=== PATIENT | female | born 1975 | race African-American/Black ===

== ENCOUNTER 2016-07-22 18:42 | Emergency (ER) | payer MEDICARE, MEDICAID ==
[~2016-07-22] VITALS: Ht 162.6 cm; Wt 64.9 kg
[~2016-07-22 18:42] MED LIST: ACETAMINOPHEN-1 EAC2 PO; COUMADIN10 MG ORAL; COUMADIN7.5 MG ORAL; DILAUDID4 MG ORAL; DILAUDID4 MG PO; FOLIC ACID1 MG ORAL; FOLIC ACID1 MG PO; NORCO 10-325 T1 EACH ORAL; NORCO 5-325 TA1 EACH ORAL; NORCO 5-325 TA1 EACH PO; NORCO1 E1 ORAL; NORVASC5 MG ORAL; OXYCODONE HCL80 MG PO; OXYCONTIN80 MG ORAL; OXYCONTIN80 MG PO; TOPROL XL25 MG ORAL; VICODIN 5-3001 EACH ORAL
[2016-07-22 18:55] VITALS: BP 158/67
[2016-07-22 20:00] VITALS: BP 158/67
--- NOTE | 2016-07-24 06:54 | Emergency Room Report ---
History of Present Illness General Chief Complaint: Pain Source: EMS Present Illness HPI 41-year-old female presents ED complaining of generalized pain. Patient states she has history of sickle cell disease. States pain is a 10 out of 10, sharp, nonradiating. No aggravating or relieving factors. States she does not have any medications at home. Patient is well known to [facility]; has been here multiple times for pain-related complaints due to sickle cell. Previous visits I had discussion with her subscription agent Dr. Christine told me that patient should not receive medication the emergency room as she comes to the clinic multiple times week and requests strong doses of IV Dilaudid. She states she was at her doctors office today. Denies fevers or chills. Denies shortness of breath. No aggravating relieving factors. Denies any other associated symptoms Allergies: Coded Allergies: MORPHINE (Verified Allergy, Mild, HALLUCINATIONS AND HIVES, 04/09/10) Patient History Past Medical History: HTN, asthma Past Surgical History: none Pertinent Family History: none Social History: Denies: alcohol use, drug use, smoking Last Menstrual Period: jul 12, 2016 Now: No Immunizations: UTD Reviewed Nursing Documentation: PMH: Agreed, PSxH: Agreed Nursing Documentation-PMH Past Medical History: No History, Except For Hx Hypertension: Yes Hx Asthma: Yes Hx Cancer: No Hx Gastrointestinal Problems: No Review of Systems All Other Systems: negative except mentioned in HPI Physical Exam Vital Signs Date Time Temp Pulse Resp B/P Pulse Ox O2 Delivery O2 Flow Rate FiO2 07/22/16 18:45 98.8 81 15 158/67 98 Room Air Sp02 EP Interpretation: reviewed, normal General Appearance: alert, GCS 15, non-toxic, mild distress Head: normocephalic, atraumatic Eyes: bilateral eye PERRL, bilateral eye normal inspection ENT: hearing grossly normal, normal pharynx, no angioedema, normal voice Neck: full range of motion, supple/symm/no masses Respiratory: chest non-tender, lungs clear, normal breath sounds, speaking full sentences Cardiovascular #1: regular rate, rhythm, no edema Cardiovascular #2: 2+ carotid (R), 2+ carotid (L), 2+ radial (R), 2+ radial (L) , 2+ dorsalis pedis (R), 2+ dorsalis pedis (L) Gastrointestinal: normal bowel sounds, non tender, soft, non-distended, no guarding, no rebound Rectal: deferred Genitourinary: normal inspection, no CVA tenderness Musculoskeletal: back normal, gait/station normal, normal range of motion, non- tender Neurologic: alert, oriented x3, responsive, motor strength/tone normal, sensory intact, speech normal Psychiatric: judgement/insight normal, memory normal, mood/affect normal, no suicidal/homicidal ideation Reflexes: 3+ bicep (R), 3+ bicep (L), 3+ tricep (R), 3+ tricep (L), 3+ knee (R) , 3+ knee (L) Skin: normal color, no rash, warm/dry, well hydrated Lymphatic: no adenopathy Medical Decision Making Diagnostic Impression: Primary Impression: Drug-seeking behavior ER Course Hospital Course [id number] F presents ED complaining of generalized body pain, h/o sickle cell Differential diagnoses include: sickle cell crisis, sepsis, opioid dependence Clinical course Physical exam is unremarkable. Patient is stable vitals. Patient does have multiple visits to the emergency room for pain-related complaints. On previous discussions with subscription agent Dr. Christine should not receive medications in the emergency room and she only followup with his office. I explained to patient that we could not provide her with any additional medication at this time. Patient gets very upset and states that I don't know her and that never seen her before. I explained to patient that I evaluated her myself multiple times in the past which is documented in the EMR. Diagnosis - drug seeking behavior Stable and discharged to home. Followup with PMD. Return to ED if symptoms recur or worsen Last Vital Signs Date Time Temp Pulse Resp B/P Pulse Ox O2 Delivery O2 Flow Rate FiO2 07/22/16 20:00 98.7 89 15 158/67 98 Room Air Status: improved Disposition: HOME, SELF-CARE Condition: Stable Referrals: LULY CALIXTO (PCP) Patient Instructions: Chronic Pain PEDRO OWENS M.D. Jul 24, 2016 06:54
== END 2016-07-22 20:00 | disposition home or self-care (01) ==
LOC: EMR 19:30
DX: Z76.5 Malingerer [conscious simulation] (principal); D57.1 Sickle-cell disease without crisis; I10 Essential (primary) hypertension; J45.909 Unspecified asthma, uncomplicated; Z88.6 Allergy status to analgesic agent
CPT/HCPCS: 99282

== ENCOUNTER 2016-09-15 21:44 | Emergency (ER) | payer MEDICARE, MEDICAID ==
[~2016-09-15] VITALS: Ht 162.6 cm; Wt 64.0 kg
[2016-09-15 22:08] VITALS: BP 144/87
--- NOTE | 2016-09-15 22:18 | Emergency Room Report ---
History of Present Illness General Chief Complaint: Pain Source: Patient Present Illness HPI Is a 41-year-old Afro[place]er female with a history of sickle cell. She has multiple visit here and also to [place]. She presents with chief complaint of generalized pain. Pain is 10 out of 10. She said that her pain medication not working. Denies any fever or chills. Denies any nausea vomiting. Pain is similar to her previous episode. Allergies: Coded Allergies: MORPHINE (Verified Allergy, Mild, HALLUCINATIONS AND HIVES, 04/09/10) Patient History Past Medical History: see triage record, old chart reviewed, HTN Past Surgical History: other Pertinent Family History: none Social History: Denies: smoking Last Menstrual Period: unk Now: No Immunizations: other Reviewed Nursing Documentation: PMH: Agreed, PSxH: Agreed Nursing Documentation-PMH Hx Hypertension: Yes Hx Asthma: Yes Hx Cancer: No Hx Gastrointestinal Problems: No Review of Systems Eye: Denies: blurred vision, eye pain ENT: Denies: ear pain, nose congestion, throat swelling Respiratory: Denies: cough, shortness of breath Cardiovascular: Denies: chest pain, palpitations Gastrointestinal: Denies: abdominal pain, diarrhea, nausea, vomiting Musculoskeletal: Denies: back pain, joint pain Skin: Denies: rash Neurological: Denies: headache, numbness Endocrine: Denies: increased thirst, increased urine Hematologic/Lymphatic: Denies: easy bruising All Other Systems: negative except mentioned in HPI Physical Exam Vital Signs Date Time Temp Pulse Resp B/P Pulse Ox O2 Delivery O2 Flow Rate FiO2 09/15/16 21:51 98.1 98 16 149/85 97 Room Air vitals with mild hypertension Sp02 EP Interpretation: reviewed, normal General Appearance: well appearing, no apparent distress, alert Head: normocephalic, atraumatic Eyes: bilateral eye EOMI, bilateral eye PERRL ENT: hearing grossly normal, normal pharynx Neck: full range of motion, supple, no meningismus Respiratory: chest non-tender, lungs clear, normal breath sounds Cardiovascular #1: regular rate, rhythm, no murmur Gastrointestinal: normal bowel sounds, non tender, no mass, no organomegaly, no bruit, non-distended Musculoskeletal: back normal, gait/station normal, normal range of motion Psychiatric: mood/affect normal Skin: warm/dry Medical Decision Making Diagnostic Impression: Primary Impression: Sickle cell crisis Additional Impressions: Drug-seeking behavior Hypertension Qualified Codes: I10 - Essential (primary) hypertension opiate dependancy ER Course Patient presents with exacerbation of chronic pain. She did multiple narcotic prescription from Dr. Christine. She was just at his office or it today. Patient tell me that she hasn't been anywhere else. She was at [facility] just before coming here. I spoke with the ER DrCheli there. Her labs are unremarkable. She sat out AMA because she did not get any further pain medication. She walked in here without any difficulty. She has been to multiple different ERs for pain medication. We'll discharge home. There is no evidence of aplastic crisis or evidence of infection. Last Vital Signs Date Time Temp Pulse Resp B/P Pulse Ox O2 Delivery O2 Flow Rate FiO2 09/15/16 22:08 98.2 96 15 144/87 97 Room Air Status: improved Disposition: HOME, SELF-CARE Condition: Stable Patient Instructions: Chronic Pain Additional Instructions: Stop going to different ERs for pain medication. Take your pain medication. Followup with your DrCheli in 2-3 days. Return if symptom worsen. JOEL ACUNA M.D. Sep 15, 2016 22:18
[2016-09-15] MEDS ORDERED: Acetaminophen 500mg (ES) tab ORAL ONE ×2 (22:19→22:30)
== END 2016-09-15 22:29 | disposition home or self-care (01) ==
LOC: EMR 22:20
DX: D57.00 Hb-SS disease with crisis, unspecified (principal); Z76.5 Malingerer [conscious simulation]; I10 Essential (primary) hypertension; F11.20 Opioid dependence, uncomplicated; J45.909 Unspecified asthma, uncomplicated; Z88.6 Allergy status to analgesic agent
CPT/HCPCS: 99282

== ENCOUNTER 2016-11-16 17:37 | Emergency (ER) | payer MEDICAID, MEDICARE ==
[~2016-11-16] VITALS: Ht 162.6 cm; Wt 62.6 kg
[2016-11-16 18:02] VITALS: BP 141/89
[2016-11-16] MEDS ORDERED: HYDROmorphone 2 MG, DiphenhydrAMINE 25 MG in NS 55 ML IVPB ONE (18:45)
[2016-11-16] MEDS ORDERED: NS 55 ML IV ONE (18:46)
[2016-11-16] MEDS ORDERED: DiphenhydrAMINE 50mg/ml Inj ONE (18:46)
[2016-11-16 18:59] LABS: MEAN CORPUSCULAR HEMOGLOBIN 32.9 PG (27.0-31.0); MEAN CORPUSCULAR HGB CONC 33.3 G/DL (32.0-36.0); MEAN CORPUSCULAR VOLUME 99 FL (80-99); MEAN PLATELET VOLUME 11.2 FL (6.5-10.1); PLATELET COUNT 134 K/UL (150-450); RED CELL DISTRIBUTION WIDTH 18.2 % (11.6-14.8); WHITE BLOOD COUNT 11.8 K/UL (4.8-10.8)
--- NOTE | 2016-11-16 19:02 | Emergency Room Report ---
History of Present Illness General Chief Complaint: Pain Source: Patient (Kasey Guerrero) Present Illness HPI 41 YO Female presents to the ED c/o pain all over the body: thighs and arms x 1 day 03/29 in severity, sickle cell crisis. Pt was seen by PCP today who gave her Dilaudid and Benadryl injections, pt. states her pain has not improved. denies change in presentation from her typical sickle cell pain episodes. Denies cough, SOB, fevers, chills, N/V/C/D, rashes, or abdominal pain. denies trauma or fall. Denies CP, Palpitations, LOC, AMS, dizziness, Changes in Vision, Sensation, paresthesias, or a sudden severe headache. (Kasey Guerrero) Allergies: Coded Allergies: MORPHINE (Verified Allergy, Mild, HALLUCINATIONS AND HIVES, 04/09/10) Patient History Past Medical History: see triage record Past Surgical History: none Pertinent Family History: none Last Menstrual Period: 10/28/16 Now: No Immunizations: UTD Reviewed Nursing Documentation: PMH: Agreed, PSxH: Agreed (Kasey Guerrero) Nursing Documentation-PMH Hx Hypertension: Yes Hx Asthma: Yes Hx Cancer: No Hx Gastrointestinal Problems: No (Kasey Guerrero) Review of Systems All Other Systems: negative except mentioned in HPI (Kasey Guerrero) Physical Exam Vital Signs Date Time Temp Pulse Resp B/P Pulse Ox O2 Delivery O2 Flow Rate FiO2 11/16/16 17:45 98.1 74 15 146/91 100 Room Air (Kasey Guerrero) Medical Decision Making PA Attestation Dr. Canales is my supervising Physician whom patient management has been discussed with. (Kasey Guerrero) Medicare Attestation Patient was seen and evaluated by myself as well At this time patient received pain medications IV hydration While we were pending for the reticulocyte count Patient stated that she can have one more pain medicine so she can go home I discussed with her that this is a dangerous requests we were waiting for the blood work to return to decide further inpatient care versus outpatient however the patient reports that she would like to go home and does not want to be here any further Patient's presentation and general demeanor is concerning Have discussed with her the need for close followup with her live in housekeeper nanny (EVARISTO CANALES D.O.) Diagnostic Impression: Primary Impression: SICKLE CELL PAIN Additional Impression: Drug-seeking behavior ER Course Pt. presents to the ED c/o pain all over the body: thighs and arms x 1 day 03/29 in severity, sickle cell crisis. Pt was seen by PCP today who gave her dilaudid and benadryl injections, pt. states her pain has not improved. denies change in presentation from her typical sickle cell pain episodes. Ddx considered but are not limited to Sickle cell crisis, Infection, Cardiac pathology, ACS, DVT, Fracture, Dislocation Vital signs: are WNL, pt. is afebrile H&PE are most consistent with Sickle cell pain --CURES REPORT: TWO recent fills for Dilaudid 4 mg qty 400 on 11/05/16, and 4 days prior for 8mg Dilaudid qty of 100. --- This pt. should have adequate amount of medication. ORDERS: -CBC: mild elevation in wbc's 11.8 , hct of 9.5, and rbc decreased at 2.7 -CMP: unremarkable - ESR: pending -Reticulocyte count : Pending ED INTERVENTIONS: Pt. habitually requests pain medication, and when denied additional medication , she requests IV Benandryl ,and specifically states she does not want it mixed in saline prior to administration- due to pt. ability to answer questions with NAD, I do not feel her crisis is severe at this time, pt. does not show rash, wheezing, or other evidence of allergic reaction and feel multiple requests for benadryl with specific administration instructions, as well as pain medication requests is most consistent with drug- seeking rather than for emergent condition. prior to PE, pt. was observed to be NAD, walking from bathroom to chair , and once evaluated pt. began crying and verbally expressing need for pain medications. -- d/w pt. that laboratory results are imperative to further administration of strong opiates especially as she has already been given medication both here in the ED and prior to arrival at doctors office. - 1 liters NS for hydration. - 2mg + 25mg benadryl / Dilaudid for pain -1 mg ativan IV DISPOSITION: Pt. Requests AMA. -- Pt. does not want to wait for laboratory results. - At this time the patient is requesting to leave AGAINST MEDICAL ADVICE. I believe that this patient has the capacity to make decisions on her own. I discussed with the patient the risks of leaving AMA. Some of these risks include delay in diagnosis and treatment, as well as worsening of symptoms, organ damage, and permanent disability or even . After discussing these risks with the patient. She continues to express Her want to leave AGAINST MEDICAL ADVICE. I encouraged the patient to return at any time, and that she will be welcome here in the emergency department to continue medical management. Pt. refuses to sign AMA paperwork. Labs Test 11/16/16 18:35 White Blood Count 11.8 K/UL (4.8-10.8) Red Blood Count 2.90 M/UL (4.20-5.40) Hemoglobin 9.5 G/DL (12.0-16.0) Hematocrit 28.7 % (37.0-47.0) Mean Corpuscular Volume 99 FL (80-99) Mean Corpuscular Hemoglobin 32.9 PG (27.0-31.0) Mean Corpuscular Hemoglobin Concent 33.3 G/DL (32.0-36.0) Red Cell Distribution Width 18.2 % (11.6-14.8) Platelet Count 134 K/UL (150-450) Mean Platelet Volume 11.2 FL (6.5-10.1) Neutrophils (%) (Auto) % (45.0-75.0) Lymphocytes (%) (Auto) % (20.0-45.0) Monocytes (%) (Auto) % (1.0-10.0) Eosinophils (%) (Auto) % (0.0-3.0) Basophils (%) (Auto) % (0.0-2.0) Differential Total Cells Counted 100 Neutrophils % (Manual) 15 % (45-75) Lymphocytes % (Manual) 62 % (20-45) Monocytes % (Manual) 16 % (1-10) Eosinophils % (Manual) 7 % (0-3) Basophils % (Manual) 0 % (0-2) Band Neutrophils 0 % (0-8) Platelet Estimate Decreased Platelet Morphology Normal Hypochromasia 2+ Anisocytosis 2+ Target Cells 2+ Erythrocyte Sedimentation Rate 65 MM/HR (0-20) Reticulocyte Count 3.8 % (0.0-2.0) Sodium Level 144 mEQ/L (135-145) Potassium Level 3.2 mEQ/L (3.4-4.9) Chloride Level 105 mEQ/L (98-107) Carbon Dioxide Level 24 mEQ/L (20-30) Anion Gap 15 (5-15) Blood Urea Nitrogen 10 mg/dL (7-23) Creatinine 0.7 mg/dL (0.5-0.9) Estimat Glomerular Filtration Rate > 60 mL/min (>60) Glucose Level 117 mg/dL (74-106) Calcium Level 9.2 mg/dL (8.6-10.2) (Kasey Guerrero) Last Vital Signs Date Time Temp Pulse Resp B/P Pulse Ox O2 Delivery O2 Flow Rate FiO2 11/16/16 18:02 98.2 78 14 141/89 99 Room Air (Kasey Guerrero) Disposition: AGAINST MEDICAL ADVICE Condition: Unknown Referrals: LULY QUICK (PCP) Patient Instructions: Sickle Cell Anemia, Adult, [id number] Additional Instructions: Take previously prescribed medications as directed. Follow up with PCP in 3-5 days Return sooner to ED if new symptoms occur, or current symptoms become worse. although you have chosen to leave the ED against medical advice before all laboratory results have been completed, you are encouraged to return if you change your mind, or have any change in your condition. - Please note that this Emergency Department Report was dictated using Bookmatenapper runner technology software, occasionally this can lead to erroneous entry secondary to interpretation by the dictation equipment. Kasey Guerrero November 16, 2016 19:02 EVARISTO CANALES D.O. November 16, 2016 20:22
[2016-11-16 19:17] LABS: ANION GAP 15 (5-15); CALCIUM 9.2 mg/dL (8.6-10.2); CARBON DIOXIDE 24 mEQ/L (20-30); CHLORIDE 105 mEQ/L (98-107); CREATININE 0.7 mg/dL (0.5-0.9); GLOMERULAR FILTRATION RATE > 60 mL/min (>60); HEMOLYSIS 4; POTASSIUM 3.2 mEQ/L (3.4-4.9); SODIUM 144 mEQ/L (135-145)
[2016-11-16] MEDS ORDERED: LORazepam Inj 2mg/ml 1ml IV ONE (20:15)
[2016-11-16 20:30] VITALS: BP 141/89
[2016-11-16 20:31] LABS: RETICULOCYTE COUNT 3.8 % (0.0-2.0)
[2016-11-16 21:06] LABS: EOSINOPHILS % (MANUAL) 7 % (0-3); LYMPHOCYTES % (MANUAL) 62 % (20-45); NEUTROPHILS % (MANUAL) 15 % (45-75); TOTAL CELLS COUNTED 100
[2016-11-16 21:07] LABS: ANISOCYTOSIS 2+; HYPOCHROMASIA 2+
[2016-11-16 21:08] LABS: BAND NEUTROPHILS % (MANUAL) 0 % (0-8); BASOPHILS % (MANUAL) 0 % (0-2); PLATELET ESTIMATE DECREASED; PLATELET MORPHOLOGY NORMAL; TARGET CELLS 2+
== END 2016-11-16 20:30 | disposition left against medical advice (07) ==
LOC: EMR 18:28
DX: D57.00 Hb-SS disease with crisis, unspecified (principal); R52 Pain, unspecified; Z76.5 Malingerer [conscious simulation]; J45.909 Unspecified asthma, uncomplicated; I10 Essential (primary) hypertension; Z88.6 Allergy status to analgesic agent
CPT/HCPCS: 36415; 80048; 85007; 85025; 85044; 85651; 96374; 96375; 99284; J1170; J1200

== ENCOUNTER 2016-11-24 17:02 | Inpatient (IN) | payer MEDICARE ==
[~2016-11-24] VITALS: Ht 162.6 cm; Wt 62.1 kg
[2016-11-24 17:18] VITALS: BP 132/72
[2016-11-24] MEDS ORDERED: DiphenhydrAMINE 50mg/ml Inj IVP ONE ×2 (17:30→18:30)
--- NOTE | 2016-11-24 17:38 | Emergency Room Report ---
History of Present Illness General Chief Complaint: General Complaint Source: Patient, Medical Record Present Illness HPI The patient presents with total body pain and dizziness. She says her sickle cell is out of control. She states she was seen at [facility] last night and they told her she needed blood transfusions. They weren't giving her pain medication like she wanted and she signed out AGAINST MEDICAL ADVICE. She saw her doctor today. He gave her 2 doses of 8 mg dilaudid. She states her doctor told her to come to the emergency department because the dilaudid was not controlling her pain. (Her physician denies this was their conversation. He did give her medication and he was surprised she was in the ED.) She claims her hgb was 4 at [facility]. She's complaining about some dizziness. She also has some chest pain and dyspnea. She denies any vomiting although she feels nauseated. There's no diarrhea or dysuria. All her joints hurt at this time. She denies any fevers. The pain is 9-10/10, constant. She is also anxious. When evaluated in May 2016, she signed out AMA. Her physician states she frequently signs out AMA. Patient with port. Allergies: Coded Allergies: MORPHINE (Verified Allergy, Mild, HALLUCINATIONS AND HIVES, 04/09/10) HALOPERIDOL (Verified Allergy, Unknown, 11/24/16) Patient History Past Medical History: see triage record Past Surgical History: other - port Social History: Reports: smoking Social History Narrative at home Last Menstrual Period: 11/12/16 Now: No : 3 Para: 3 Reviewed Nursing Documentation: PMH: Agreed, PSxH: Agreed Nursing Documentation-PM Past Medical History: No History, Except For Hx Hypertension: Yes Hx Asthma: Yes Hx Cancer: No Hx Gastrointestinal Problems: No Review of Systems All Other Systems: negative except mentioned in HPI Physical Exam Vital Signs Date Time Temp Pulse Resp B/P Pulse Ox O2 Delivery O2 Flow Rate FiO2 11/24/16 17:08 98.6 89 16 138/88 98 Room Air Sp02 EP Interpretation: reviewed, normal General Appearance: mild distress, Chronically Ill Head: normocephalic Eyes: bilateral eye PERRL, bilateral eye conjunctivae pale ENT: moist mucus membranes Neck: supple Respiratory: lungs clear, normal breath sounds Cardiovascular #1: regular rate, rhythm Cardiovascular #2: 2+ radial (R) Gastrointestinal: normal inspection, normal bowel sounds, non tender, no mass, non-distended Musculoskeletal: back normal, gait/station normal, normal range of motion Neurologic: alert, oriented x3, grossly normal Psychiatric: anxious - and pressuring for pain medicine Skin: warm/dry, other - minimal pallor Medical Decision Making Diagnostic Impression: Primary Impression: Sickle cell crisis Additional Impressions: Drug-seeking behavior Anemia ER Course The patient presents with body pain and alleging that her hemoglobin is low and that she needs to get a blood transfusion. She signed out from [facility] last night AGAINST MEDICAL ADVICE then saw her MD. She frequently presents requesting opiate medications. She needs to have emergent assessment of her cardiovascular and hematologic status. CBC, reticulocyte count, LDH will be obtained. In addition to that she'll receive IV hydration and analgesia.Type & RH will be obtained also. Patient with anxiety and continued pain. Analgesia was repeated. She refused CXR until she got more pain medicine (this was declined and she got CXR). Hemoglobin is low but not requiring emergent transfusion. Patient's pain is out of control and will admit the patient to medical floor. Dr. Sears requested that the patient commit to staying in the hospital. She stated she would stay. After 4th dose of dilaudid, patient states last dose is "making my pain worse". She still states she will stay. Ordered toradol and haldol. Now states allergic to haldol. She refused toradol. Vistaril ordered. Laboratory Tests Test 11/24/16 17:16 11/24/16 17:35 Urine Color Yellow Urine Appearance Clear Urine pH 7 (4.5-8.0) Urine Specific [place] 1.010 (1.005-1.035) Urine Protein Negative (NEGATIVE) Urine Glucose (UA) Negative (NEGATIVE) Urine Ketones Negative (NEGATIVE) Urine Occult Blood Negative (NEGATIVE) Urine Nitrite Negative (NEGATIVE) Urine Bilirubin Negative (NEGATIVE) Urine Urobilinogen 4 MG/DL (0.0-1.0) H Urine Leukocyte Esterase Negative (NEGATIVE) Urine HCG, Qualitative Negative Urine Opiates Screen Positive (NEGATIVE) H Urine Barbiturates Screen Negative (NEGATIVE) Phencyclidine (PCP) Screen Negative (NEGATIVE) Urine Amphetamines Screen Negative (NEGATIVE) Urine Benzodiazepines Screen Negative (NEGATIVE) Urine Cocaine Screen Negative (NEGATIVE) Urine Marijuana (THC) Screen Negative (NEGATIVE) White Blood Count 15.8 K/UL (4.8-10.8) H Red Blood Count 2.44 M/UL (4.20-5.40) L Hemoglobin 7.4 G/DL (12.0-16.0) L Hematocrit 23.8 % (37.0-47.0) L Mean Corpuscular Volume 97 FL (80-99) Mean Corpuscular Hemoglobin 30.5 PG (27.0-31.0) Mean Corpuscular Hemoglobin Concent 31.3 G/DL (32.0-36.0) L Red Cell Distribution Width 20.9 % (11.6-14.8) H Platelet Count 153 K/UL (150-450) Mean Platelet Volume 10.4 FL (6.5-10.1) H Neutrophils (%) (Auto) % (45.0-75.0) Lymphocytes (%) (Auto) % (20.0-45.0) Monocytes (%) (Auto) % (1.0-10.0) Eosinophils (%) (Auto) % (0.0-3.0) Basophils (%) (Auto) % (0.0-2.0) Differential Total Cells Counted 100 Neutrophils % (Manual) 27 % (45-75) L Lymphocytes % (Manual) 60 % (20-45) H Monocytes % (Manual) 4 % (1-10) Eosinophils % (Manual) 9 % (0-3) H Basophils % (Manual) 0 % (0-2) Band Neutrophils 0 % (0-8) Platelet Estimate Adequate Platelet Morphology Normal Hypochromasia 1+ Anisocytosis 1+ Macrocytosis 1+ Sickle Cells 1+ H Target Cells 1+ Reticulocyte Count 3.4 % (0.0-2.0) H Prothrombin Time 11.7 SEC (9.30-11.50) H Prothrombin Time INR 1.1 (0.9-1.1) PTT 30 SEC (23-33) Sodium Level 140 mEQ/L (135-145) Potassium Level 3.1 mEQ/L (3.4-4.9) L Chloride Level 104 mEQ/L (98-107) Carbon Dioxide Level 25 mEQ/L (20-30) Anion Gap 11 (5-15) Blood Urea Nitrogen 8 mg/dL (7-23) Creatinine 0.7 mg/dL (0.5-0.9) Estimate Glomerular Filtration Rate > 60 mL/min (>60) Glucose Level 86 mg/dL (74-106) Calcium Level 9.4 mg/dL (8.6-10.2) Total Bilirubin 2.0 mg/dL (0.0-1.2) H Direct Bilirubin 0.8 mg/dL (0.1-0.3) H Aspartate Amino Transferase (AST) 28 U/L (5-40) Alanine Aminotransferase (ALT) 12 U/L (3-33) Alkaline Phosphatase 144 U/L (35-104) H Lactate Dehydrogenase 371 U/L (135-230) H Total Creatine Kinase 39 U/L (26-140) Troponin I < 0.30 ng/mL (<=0.30) Pro-B-Type Natriuretic Peptide 80 pg/mL (0-125) Total Protein 7.1 g/dL (6.6-8.7) Albumin 3.4 g/dL (3.5-5.2) L Globulin 3.7 g/dL Albumin/Globulin Ratio 0.9 (1.0-2.7) L EKG Diagnostic Results Rate: normal Rhythm: NSR ST Segments: no acute changes Rhythm Strip Diag. Results EP Interpretation: yes Rhythm: NSR, no PVC's, no ectopy Chest X-Ray Diagnostic Results EP Interpretation: Yes Findings: no consolidation, no effusion, no pneumothorax, no acute cardiopulmonary disease, other - port Number of Views: 1 Last Vital Signs Date Time Temp Pulse Resp B/P Pulse Ox O2 Delivery O2 Flow Rate FiO2 11/24/16 22:45 97.9 96 20 129/83 96 Room Air Status: improved Disposition: ADMITTED INPATIENT Condition: Serious Referrals: NON PHYSICIAN (PCP) Mak Buck M.D. Nov 24, 2016 17:38
[2016-11-24 18:00] LABS: APPEARANCE,URINE CLEAR; KETONES,URINE NEGATIVE (NEGATIVE); LEUKOCYTE ESTERASE ,URINE NEGATIVE (NEGATIVE); NITRITE,URINE NEGATIVE (NEGATIVE); PH,URINE 7 (4.5-8.0); PROTEIN,URINE NEGATIVE (NEGATIVE); UROBILINOGEN,URINE 4 MG/DL (0.0-1.0)
[2016-11-24 18:05] LABS: INR 1.1 (0.9-1.1); PROTHROMBIN TIME 11.7 SEC (9.30-11.50); TROPONIN I < 0.30 ng/mL (<=0.30)
[2016-11-24 18:08] LABS: ALANINE AMINOTRANSFERASE 12 U/L (3-33); ALBUMIN/GLOBULIN RATIO 0.9 (1.0-2.7); ANION GAP 11 (5-15); ASPARTATE AMINO TRANSFERASE 28 U/L (5-40); CALCIUM 9.4 mg/dL (8.6-10.2); CARBON DIOXIDE 25 mEQ/L (20-30); CHLORIDE 104 mEQ/L (98-107); CREATININE 0.7 mg/dL (0.5-0.9); GLOMERULAR FILTRATION RATE > 60 mL/min (>60); HEMOLYSIS 5; LACTATE DEHYDROGENASE 371 U/L (135-230); POTASSIUM 3.1 mEQ/L (3.4-4.9); SODIUM 140 mEQ/L (135-145); TOTAL PROTEIN 7.1 g/dL (6.6-8.7)
[2016-11-24 18:29] LABS: BILIRUBIN,DIRECT 0.8 mg/dL (0.1-0.3)
[2016-11-24] MEDS ORDERED: HYDROmorphone 1mg/ml Carpuject IVP ONE ×2 (18:30→20:00)
[2016-11-24] MEDS ORDERED: LORazepam Inj 2mg/ml 1ml IV ONE (18:30)
[2016-11-24 18:31] LABS: MEAN CORPUSCULAR HEMOGLOBIN 30.5 PG (27.0-31.0); MEAN CORPUSCULAR HGB CONC 31.3 G/DL (32.0-36.0); MEAN CORPUSCULAR VOLUME 97 FL (80-99); MEAN PLATELET VOLUME 10.4 FL (6.5-10.1); PLATELET COUNT 153 K/UL (150-450); RED BLOOD COUNT 2.44 M/UL (4.20-5.40); RED CELL DISTRIBUTION WIDTH 20.9 % (11.6-14.8); WHITE BLOOD COUNT 15.8 K/UL (4.8-10.8)
[2016-11-24 19:26] LABS: EOSINOPHILS % (MANUAL) 9 % (0-3); LYMPHOCYTES % (MANUAL) 60 % (20-45); NEUTROPHILS % (MANUAL) 27 % (45-75); TOTAL CELLS COUNTED 100
[2016-11-24] MEDS ORDERED: AMBIEN5 MG ORAL (19:26)
[2016-11-24] MEDS ORDERED: ADVAIR 100-501 EACH INH (19:26)
[2016-11-24 19:27] VITALS: BP 139/68
[2016-11-24 19:28] LABS: ANISOCYTOSIS 1+; BAND NEUTROPHILS % (MANUAL) 0 % (0-8); BASOPHILS % (MANUAL) 0 % (0-2); HYPOCHROMASIA 1+; PLATELET ESTIMATE ADEQUATE; PLATELET MORPHOLOGY NORMAL
[2016-11-24 19:29] LABS: MACROCYTES 1+
[2016-11-24 19:30] LABS: SICKLE CELLS 1+; TARGET CELLS 1+
[2016-11-24 20:15] LABS: RETICULOCYTE COUNT 3.4 % (0.0-2.0)
[2016-11-24] MEDS: Ketorolac 30mg Inj IV ONE ×2 (20:47→20:50)
[2016-11-24] MEDS: Haloperidol 5mg/ml Inj IM ONE ×2 (20:47→20:49)
[2016-11-24 21:12] VITALS: BP 134/85
[2016-11-24] MEDS ORDERED: HydrOXYzine 25mg tab ORAL ONE (21:15)
[2016-11-24 22:45] VITALS: BP 129/83
[2016-11-24] MEDS ORDERED: HYDROmorphone 1mg/ml Carpuject IVP PRN (23:45)
[2016-11-25] MEDS ORDERED: Warfarin Sodium 5mg ORAL ONE (01:00)
[2016-11-25] MEDS ORDERED: Warfarin Sodium 2.5mg ORAL ONE (01:00)
[2016-11-25] MEDS: DiphenhydrAMINE 50mg/ml Inj IVP PRN ×6 (03:10→23:03)
[2016-11-25] MEDS: HYDROmorphone 1mg/ml Carpuject IVP PRN ×7 (03:10→23:03)
[2016-11-25 04:57] VITALS: BP 135/88
[2016-11-25 06:31] LABS: MEAN CORPUSCULAR HEMOGLOBIN 31.3 PG (27.0-31.0); MEAN CORPUSCULAR VOLUME 98 FL (80-99); MEAN PLATELET VOLUME 9.6 FL (6.5-10.1); PLATELET COUNT 131 K/UL (150-450); RED BLOOD COUNT 2.25 M/UL (4.20-5.40); RED CELL DISTRIBUTION WIDTH 20.6 % (11.6-14.8)
[2016-11-25 06:55] LABS: ALANINE AMINOTRANSFERASE 12 U/L (3-33); ALBUMIN/GLOBULIN RATIO 0.9 (1.0-2.7); ANION GAP 12 (5-15); ASPARTATE AMINO TRANSFERASE 29 U/L (5-40); CALCIUM 9.3 mg/dL (8.6-10.2); CARBON DIOXIDE 25 mEQ/L (20-30); CHLORIDE 103 mEQ/L (98-107); CREATININE 0.7 mg/dL (0.5-0.9); GLOMERULAR FILTRATION RATE > 60 mL/min (>60); HEMOLYSIS 2; MAGNESIUM 1.7 mg/dL (1.7-2.5); PHOSPHORUS 3.9 mg/dL (2.5-4.8); POTASSIUM 4.5 mEQ/L (3.4-4.9); SODIUM 140 mEQ/L (135-145); TOTAL PROTEIN 7.4 g/dL (6.6-8.7)
[2016-11-25 07:09] LABS: BILIRUBIN,DIRECT 0.8 mg/dL (0.1-0.3)
[2016-11-25 07:31] LABS: BASOPHILS % (MANUAL) 2 % (0-2); EOSINOPHILS % (MANUAL) 19 % (0-3); LYMPHOCYTES % (MANUAL) 38 % (20-45); NEUTROPHILS % (MANUAL) 34 % (45-75); NUCLEATED RED BLOOD CELLS 2 /100 WBC; TOTAL CELLS COUNTED 100
[2016-11-25 07:32] LABS: ANISOCYTOSIS 2+; BAND NEUTROPHILS % (MANUAL) 0 % (0-8); HYPOCHROMASIA 3+; OVALOCYTES 1+; PLATELET ESTIMATE DECREASED; PLATELET MORPHOLOGY NORMAL; POIKILOCYTOSIS 2+; POLYCHROMASIA 1+
[2016-11-25 08:16] VITALS: BP 131/81
[2016-11-25] MEDS: Advair 250/50 Inhaler - 14 dose INH SCH ×2 (09:17→18:00)
[2016-11-25 10:14] LABS: INR 1.1 (0.9-1.1); PROTHROMBIN TIME 11.9 SEC (9.30-11.50)
--- NOTE | 2016-11-25 10:47 | Diagnostic Imaging Report ---
Indication: Chest pain Technique: One view of the chest Comparison: 11/21/2015 Findings: Right chest port catheter is again demonstrated. The lungs and pleural spaces are clear. Heart size is normal. Aorta is tortuous. The upper mediastinum is unremarkable. There is atelectasis in the left lung base Impression: No acute process
[2016-11-25 11:12] LABS: OTHERS PATHOLOGIST COMMENT
[2016-11-25 11:26] VITALS: BP 158/90
[2016-11-25] MEDS: Dyna-Hex 2% Top Sol 8oz TOPIC SCH (15:21)
[2016-11-25 15:43] VITALS: BP 167/88
--- NOTE | 2016-11-25 16:25 | Consultation ---
History of Present Illness General Date patient seen: Nov 25, 2016 Chief Complaint: General Complaint Referring physician: Dr. Ceballos Reason for Consultation: inpatient management Present Illness HPI 41 year old female with hx of Sickle cell disease, presented to ER with generalized body ache. Her Hem was around 7. She is admitted for sickle cell crisis. Allergies: Coded Allergies: MORPHINE (Verified Allergy, Mild, HALLUCINATIONS AND HIVES, 04/09/10) HALOPERIDOL (Verified Allergy, Unknown, 11/24/16) Medication History Scheduled Fluticasone/Salmeterol (Advair 100-50 Diskus), 1 PUFF INH EVERY 12 HOURS, ( Reported) Metoprolol Succinate* (Toprol Xl*), 10 MG ORAL DAILY, (Reported) Oxycodone Hcl Er* (Oxycontin*), 80 MG ORAL EVERY 12 HOURS, (Reported) Warfarin Sod* (Coumadin*), 7.5 MG ORAL DAILY, (Reported) Scheduled PRN Hydromorphone HCl (Dilaudid), 8 MG PO Q2H PRN, (Reported) Hydromorphone HCl (Dilaudid), 4 MG ORAL Q4H PRN, (Reported) Zolpidem Tartrate* (Ambien*), 5 MG ORAL BEDTIME PRN for Insomnia, (Reported) Patient History Healthcare decision maker pt A&Ox3 Resuscitation status Full Code Advanced Directive on File Past Medical/Surgical History Past Medical/Surgical History: (1) Hypertension (2) Anemia (3) Sickle cell crisis Review of Systems Constitutional: Reports: malaise, weakness All Other Systems: negative except mentioned in HPI Physical Exam General Appearance: WD/WN, no apparent distress Lines, tubes and drains: peripheral HEENT: normocephalic, atraumatic Neck: non-tender, normal alignment Respiratory/Chest: chest wall non-tender, lungs clear Cardiovascular/Chest: normal peripheral pulses, normal rate Abdomen: normal bowel sounds Genitourinary/Rectal: normal genital exam Extremities: normal range of motion Skin Exam: normal pigmentation Last 24 Hour Vital Signs Date Time Temp Pulse Resp B/P Pulse Ox O2 Delivery O2 Flow Rate FiO2 11/25/16 15:51 98.2 11/25/16 15:43 98.2 83 18 167/88 98 Room Air 11/25/16 11:26 98.1 67 18 158/90 100 Room Air 67 11/25/16 09:17 70 18 97 Room Air 11/25/16 09:17 69 18 97 Room Air 11/25/16 08:16 98.2 78 18 131/81 96 Room Air 11/25/16 04:57 98.2 80 20 135/88 94 Room Air 11/24/16 22:45 97.9 96 20 129/83 96 Room Air 11/24/16 22:22 98.6 97 21 134/85 98 Room Air 11/24/16 22:20 98.6 11/24/16 21:12 98.6 97 21 134/85 98 Room Air 11/24/16 19:27 98.6 96 28 139/68 98 Room Air 11/24/16 18:52 98.6 11/24/16 18:24 98.6 11/24/16 17:18 92 32 132/72 96 Room Air 11/24/16 17:08 98.6 89 16 138/88 98 Room Air Intake and Output 11/24/16 11/25/16 19:00 07:00 Intake Total 300 ml 450 ml Balance 300 ml 450 ml Intake IV Total 300 ml 450 ml # Voids 1 1 Laboratory Tests Test 11/24/16 17:16 11/24/16 17:35 11/25/16 05:30 11/25/16 09:50 Urine Color Yellow Urine Appearance Clear Urine pH 7 (4.5-8.0) Urine Specific [place] 1.010 (1.005-1.035) Urine Protein Negative (NEGATIVE) Urine Glucose (UA) Negative (NEGATIVE) Urine Ketones Negative (NEGATIVE) Urine Occult Blood Negative (NEGATIVE) Urine Nitrite Negative (NEGATIVE) Urine Bilirubin Negative (NEGATIVE) Urine Urobilinogen 4 MG/DL (0.0-1.0) H Urine Leukocyte Esterase Negative (NEGATIVE) Urine HCG, Qualitative Negative Urine Opiates Screen Positive (NEGATIVE) H Urine Barbiturates Screen Negative (NEGATIVE) Phencyclidine (PCP) Screen Negative (NEGATIVE) Urine Amphetamines Screen Negative (NEGATIVE) Urine Benzodiazepines Screen Negative (NEGATIVE) Urine Cocaine Screen Negative (NEGATIVE) Urine Marijuana (THC) Screen Negative (NEGATIVE) White Blood Count 15.8 K/UL (4.8-10.8) H 13.0 K/UL (4.8-10.8) H Red Blood Count 2.44 M/UL (4.20-5.40) L 2.25 M/UL (4.20-5.40) L Hemoglobin 7.4 G/DL (12.0-16.0) L 7.0 G/DL (12.0-16.0) L Hematocrit 23.8 % (37.0-47.0) L 22.0 % (37.0-47.0) L Mean Corpuscular Volume 97 FL (80-99) 98 FL (80-99) Mean Corpuscular Hemoglobin 30.5 PG (27.0-31.0) 31.3 PG (27.0-31.0) H Mean Corpuscular Hemoglobin Concent 31.3 G/DL (32.0-36.0) L 32.0 G/DL (32.0-36.0) Red Cell Distribution Width 20.9 % (11.6-14.8) H 20.6 % (11.6-14.8) H Platelet Count 153 K/UL (150-450) 131 K/UL (150-450) L Mean Platelet Volume 10.4 FL (6.5-10.1) H 9.6 FL (6.5-10.1) Neutrophils (%) (Auto) % (45.0-75.0) % (45.0-75.0) Lymphocytes (%) (Auto) % (20.0-45.0) % (20.0-45.0) Monocytes (%) (Auto) % (1.0-10.0) % (1.0-10.0) Eosinophils (%) (Auto) % (0.0-3.0) % (0.0-3.0) Basophils (%) (Auto) % (0.0-2.0) % (0.0-2.0) Differential Total Cells Counted 100 100 Neutrophils % (Manual) 27 % (45-75) L 34 % (45-75) L Lymphocytes % (Manual) 60 % (20-45) H 38 % (20-45) Monocytes % (Manual) 4 % (1-10) 7 % (1-10) Eosinophils % (Manual) 9 % (0-3) H 19 % (0-3) H Basophils % (Manual) 0 % (0-2) 2 % (0-2) Band Neutrophils 0 % (0-8) 0 % (0-8) Other Cell Type Pathologist comment Platelet Estimate Adequate Decreased L Platelet Morphology Normal Normal Hypochromasia 1+ 3+ Anisocytosis 1+ 2+ Macrocytosis 1+ Sickle Cells 1+ H Target Cells 1+ Reticulocyte Count 3.4 % (0.0-2.0) H Prothrombin Time 11.7 SEC (9.30-11.50) H 11.9 SEC (9.30-11.50) H Prothromb Time International Ratio 1.1 (0.9-1.1) 1.1 (0.9-1.1) Activated Partial Thromboplast Time 30 SEC (23-33) Sodium Level 140 mEQ/L (135-145) 140 mEQ/L (135-145) Potassium Level 3.1 mEQ/L (3.4-4.9) L 4.5 mEQ/L (3.4-4.9) Chloride Level 104 mEQ/L (98-107) 103 mEQ/L (98-107) Carbon Dioxide Level 25 mEQ/L (20-30) 25 mEQ/L (20-30) Anion Gap 11 (5-15) 12 (5-15) Blood Urea Nitrogen 8 mg/dL (7-23) 12 mg/dL (7-23) Creatinine 0.7 mg/dL (0.5-0.9) 0.7 mg/dL (0.5-0.9) Estimat Glomerular Filtration Rate > 60 mL/min (>60) > 60 mL/min (>60) Glucose Level 86 mg/dL (74-106) 89 mg/dL (74-106) Calcium Level 9.4 mg/dL (8.6-10.2) 9.3 mg/dL (8.6-10.2) Total Bilirubin 2.0 mg/dL (0.0-1.2) H 2.2 mg/dL (0.0-1.2) H Direct Bilirubin 0.8 mg/dL (0.1-0.3) H 0.8 mg/dL (0.1-0.3) H Aspartate Amino Transf (AST/SGOT) 28 U/L (5-40) 29 U/L (5-40) Alanine Aminotransferase (ALT/SGPT) 12 U/L (3-33) 12 U/L (3-33) Alkaline Phosphatase 144 U/L (35-104) H 151 U/L (35-104) H Lactate Dehydrogenase 371 U/L (135-230) H Total Creatine Kinase 39 U/L (26-140) Troponin I < 0.30 ng/mL (<=0.30) Pro-B-Type Natriuretic Peptide 80 pg/mL (0-125) Total Protein 7.1 g/dL (6.6-8.7) 7.4 g/dL (6.6-8.7) Albumin 3.4 g/dL (3.5-5.2) L 3.6 g/dL (3.5-5.2) Globulin 3.7 g/dL 3.8 g/dL Albumin/Globulin Ratio 0.9 (1.0-2.7) L 0.9 (1.0-2.7) L Nucleated Red Blood Cells 2 /100 WBC Polychromasia 1+ Poikilocytosis 2+ Ovalocytes 1+ Phosphorus Level 3.9 mg/dL (2.5-4.8) Magnesium Level 1.7 mg/dL (1.7-2.5) Height (Feet): 5 Height (Inches): 4.00 Weight (Pounds): 137 Medications Current Medications Medications (Trade) Dose Ordered Sig/Dixie Route PRN Reason Start Time Stop Time Status Last Admin Dose Admin Chlorhexidine Gluconate (Natalie-Hex 2%) 1 applic DAILY TOPIC 11/25/16 14:00 12/25/16 13:59 11/25/16 15:21 Diphenhydramine HCl (Benadryl) 25 mg Q4H PRN IVP Itching 11/24/16 23:45 12/24/16 23:44 11/25/16 15:22 Hydromorphone HCl (Dilaudid) 1 mg Q4H PRN IVP For Mild to Moderate Pain 11/24/16 23:45 12/01/16 23:44 Hydromorphone HCl (Dilaudid) 2 mg Q4H PRN IVP For Severe Pain 11/24/16 23:45 12/01/16 23:44 11/25/16 15:21 Ondansetron HCl (Zofran) 4 mg Q4H PRN IVP Nausea & Vomiting 11/24/16 23:45 12/24/16 23:44 Salmeterol Xinafoate/ Fluticasone 1 puffs 1 puffs BID INH 11/25/16 09:00 12/25/16 08:59 11/25/16 09:17 Sodium Chloride (Sodium Chloride 1000ml bag) 1,000 ml @ 75 mls/hr [id number] IV 11/25/16 00:30 12/25/16 00:29 11/25/16 13:50 Warfarin Sodium (Coumadin per pharmacy) 1 ea DAILY PRN MISC Per rx protocol 11/24/16 23:45 12/24/16 23:44 Warfarin Sodium (Coumadin) 7.5 mg COUMADIN ONCE ORAL 11/25/16 17:00 11/25/16 17:01 11/25/16 16:13 Assessment/Plan Problem List: (1) Sickle cell crisis ICD Codes: D57.00 - Hb-SS disease with crisis, unspecified SNOMED: [id number] (2) Anemia (3) intractable pain Assessment/Plan iv fluids pain management check LDH Nasal cannula ISIAH ANTOINE Nov 25, 2016 16:25
[2016-11-25] MEDS: LORazepam Inj 2mg/ml 1ml IV PRN (16:55)
[2016-11-25] MEDS ORDERED: Warfarin Sodium 7.5mg ORAL ONE (17:00)
--- NOTE | 2016-11-25 17:57 | Consultation ---
History of Present Illness General Date patient seen: Nov 25, 2016 Chief Complaint: Referring physician: Reason for Consultation: Present Illness Allergies: Coded Allergies: MORPHINE (Verified Allergy, Mild, HALLUCINATIONS AND HIVES, 04/09/10) HALOPERIDOL (Verified Allergy, Unknown, 11/24/16) Medication History Scheduled Fluticasone/Salmeterol (Advair 100-50 Diskus), 1 PUFF INH EVERY 12 HOURS, ( Reported) Metoprolol Succinate* (Toprol Xl*), 10 MG ORAL DAILY, (Reported) Oxycodone Hcl Er* (Oxycontin*), 80 MG ORAL EVERY 12 HOURS, (Reported) Warfarin Sod* (Coumadin*), 7.5 MG ORAL DAILY, (Reported) Scheduled PRN Hydromorphone HCl (Dilaudid), 8 MG PO Q2H PRN, (Reported) Hydromorphone HCl (Dilaudid), 4 MG ORAL Q4H PRN, (Reported) Zolpidem Tartrate* (Ambien*), 5 MG ORAL BEDTIME PRN for Insomnia, (Reported) Patient History Healthcare decision maker pt A&Ox3 Resuscitation status Full Code Advanced Directive on File Physical Exam Last 24 Hour Vital Signs Date Time Temp Pulse Resp B/P Pulse Ox O2 Delivery O2 Flow Rate FiO2 11/25/16 15:51 98.2 11/25/16 15:43 98.2 83 18 167/88 98 Room Air 11/25/16 11:26 98.1 67 18 158/90 100 Room Air 67 11/25/16 09:17 70 18 97 Room Air 11/25/16 09:17 69 18 97 Room Air 11/25/16 08:16 98.2 78 18 131/81 96 Room Air 11/25/16 04:57 98.2 80 20 135/88 94 Room Air 11/24/16 22:45 97.9 96 20 129/83 96 Room Air 11/24/16 22:22 98.6 97 21 134/85 98 Room Air 11/24/16 22:20 98.6 11/24/16 21:12 98.6 97 21 134/85 98 Room Air 11/24/16 19:27 98.6 96 28 139/68 98 Room Air 11/24/16 18:52 98.6 11/24/16 18:24 98.6 Intake and Output 11/24/16 11/25/16 19:00 07:00 Intake Total 300 ml 450 ml Balance 300 ml 450 ml Intake IV Total 300 ml 450 ml # Voids 1 1 Laboratory Tests Test 11/25/16 05:30 11/25/16 09:50 White Blood Count 13.0 K/UL (4.8-10.8) H Red Blood Count 2.25 M/UL (4.20-5.40) L Hemoglobin 7.0 G/DL (12.0-16.0) L Hematocrit 22.0 % (37.0-47.0) L Mean Corpuscular Volume 98 FL (80-99) Mean Corpuscular Hemoglobin 31.3 PG (27.0-31.0) H Mean Corpuscular Hemoglobin Concent 32.0 G/DL (32.0-36.0) Red Cell Distribution Width 20.6 % (11.6-14.8) H Platelet Count 131 K/UL (150-450) L Mean Platelet Volume 9.6 FL (6.5-10.1) Neutrophils (%) (Auto) % (45.0-75.0) Lymphocytes (%) (Auto) % (20.0-45.0) Monocytes (%) (Auto) % (1.0-10.0) Eosinophils (%) (Auto) % (0.0-3.0) Basophils (%) (Auto) % (0.0-2.0) Differential Total Cells Counted 100 Neutrophils % (Manual) 34 % (45-75) L Lymphocytes % (Manual) 38 % (20-45) Monocytes % (Manual) 7 % (1-10) Eosinophils % (Manual) 19 % (0-3) H Basophils % (Manual) 2 % (0-2) Band Neutrophils 0 % (0-8) Nucleated Red Blood Cells 2 /100 WBC Platelet Estimate Decreased L Platelet Morphology Normal Polychromasia 1+ Hypochromasia 3+ Poikilocytosis 2+ Anisocytosis 2+ Ovalocytes 1+ Sodium Level 140 mEQ/L (135-145) Potassium Level 4.5 mEQ/L (3.4-4.9) Chloride Level 103 mEQ/L (98-107) Carbon Dioxide Level 25 mEQ/L (20-30) Anion Gap 12 (5-15) Blood Urea Nitrogen 12 mg/dL (7-23) Creatinine 0.7 mg/dL (0.5-0.9) Estimat Glomerular Filtration Rate > 60 mL/min (>60) Glucose Level 89 mg/dL (74-106) Calcium Level 9.3 mg/dL (8.6-10.2) Phosphorus Level 3.9 mg/dL (2.5-4.8) Magnesium Level 1.7 mg/dL (1.7-2.5) Total Bilirubin 2.2 mg/dL (0.0-1.2) H Direct Bilirubin 0.8 mg/dL (0.1-0.3) H Aspartate Amino Transf (AST/SGOT) 29 U/L (5-40) Alanine Aminotransferase (ALT/SGPT) 12 U/L (3-33) Alkaline Phosphatase 151 U/L (35-104) H Total Protein 7.4 g/dL (6.6-8.7) Albumin 3.6 g/dL (3.5-5.2) Globulin 3.8 g/dL Albumin/Globulin Ratio 0.9 (1.0-2.7) L Prothrombin Time 11.9 SEC (9.30-11.50) H Prothromb Time International Ratio 1.1 (0.9-1.1) Height (Feet): 5 Height (Inches): 4.00 Weight (Pounds): 137 Medications Current Medications Medications (Trade) Dose Ordered Sig/Dixie Route PRN Reason Start Time Stop Time Status Last Admin Dose Admin Chlorhexidine Gluconate (Natalie-Hex 2%) 1 applic DAILY TOPIC 11/25/16 14:00 12/25/16 13:59 11/25/16 15:21 Clonidine HCl (Catapres) 0.1 mg Q4H PRN ORAL For High Blood Pressure 11/25/16 17:00 12/25/16 16:59 Diphenhydramine HCl (Benadryl) 50 mg Q4H PRN IVP Itching 11/25/16 17:00 12/25/16 16:59 Hydromorphone HCl (Dilaudid) 1 mg Q4H PRN IVP For Mild to Moderate Pain 11/24/16 23:45 12/01/16 23:44 Hydromorphone HCl (Dilaudid) 2 mg Q4H PRN IVP For Severe Pain 11/24/16 23:45 12/01/16 23:44 11/25/16 15:21 Lorazepam (Ativan 2mg/ml 1ml) 1 mg Q4H PRN IV For Anxiety 11/25/16 16:45 12/02/16 16:44 11/25/16 16:55 Ondansetron HCl (Zofran) 4 mg Q4H PRN IVP Nausea & Vomiting 11/24/16 23:45 12/24/16 23:44 Salmeterol Xinafoate/ Fluticasone 1 puffs 1 puffs BID INH 11/25/16 09:00 12/25/16 08:59 11/25/16 09:17 Sodium Chloride (Sodium Chloride 1000ml bag) 1,000 ml @ 75 mls/hr [id number] IV 11/25/16 00:30 12/25/16 00:29 11/25/16 13:50 Warfarin Sodium (Coumadin per pharmacy) 1 ea DAILY PRN MISC Per rx protocol 11/24/16 23:45 12/24/16 23:44 Assessment/Plan Assessment/Plan (1) Sickle Cell Disease (2) Sickle Cell Crisis (3) Intractable pain Seen dictated JEFFY CAMPA Nov 25, 2016 17:57
--- NOTE | 2016-11-25 18:57 | History & Physical ---
History and Physical History & Physicial Dictated for Int Med-Dr Sears no. [id number]. CASIE POSADA Nov 25, 2016 18:57
[2016-11-25 20:00] VITALS: BP 146/82
[2016-11-25] MEDS: oxyCONTIN 20mg tab ORAL SCH (20:28)
[2016-11-26] VITALS: BP 132/79
--- NOTE | 2016-11-26 00:15 | History and Physical Report ---
DATE OF ADMISSION: 11/24/2016 CHIEF COMPLAINT: The patient is a 41-year-old female with history of sickle cell disease, who presents with chief complaint of generalized pain. HISTORY OF PRESENT ILLNESS: The patient has a history of sickle cell disease. The patient apparently was seen at [facility] one day prior to admission. The patient talked to me to have a transfusion. The patient presented to [facility] on 11/24/2016. The patient is complaining of generalized pain. The patient was admitted for sickle cell crisis. PAST MEDICAL HISTORY: Significant for, 1. Sickle cell disease. 2. History of sickle cell anemia. 3. Asthma. 4. Hypertension. 5. Deep venous thrombosis in the left upper arm. 6. Deep venous thrombosis of the left lower extremity. 7. History of pulmonary embolism. PAST SURGICAL HISTORY: Significant for, 1. Cholecystectomy. 2. Appendectomy. 3. Tonsillectomy. 4. Adenoidectomy. 5. section x3. 6. Multiple Port-A-Cath placements. CURRENT MEDICATIONS: 1. Advair 100/50 mg one puff p.o. twice daily. 2. Dilaudid 4 mg one tablet p.o. q.4 hours p.r.n. mild pain and two tablets p.o. q.4 hours p.r.n. severe pain. 3. Toprol-XL 25 mg one tablet p.o. daily. 4. OxyContin 80 mg one tablet p.o. twice daily. 5. Coumadin 7.5 mg one tablet p.o. daily. 6. Ambien 5 mg one tablet p.o. q.h.s. ALLERGIES: Haldol. The patient has an allergy listed to morphine, however, she denies being allergic to morphine. SOCIAL HISTORY: The patient lives with her adult brother. The patient has several children living with her as well. The patient admits to tobacco use one pack per day. The patient denies alcohol use. REVIEW OF SYSTEMS: Constitutional: The patient denies weight loss or gain. The patient denies fever or chills. HEENT: The patient denies ear or throat pain. The patient denies headache. Cardiovascular: The patient denies palpitations or chest pain. Chest: The patient denies wheeze or shortness of breath. Abdomen: The patient denies nausea, vomiting, diarrhea, or constipation. Genitourinary: The patient denies dysuria or increased frequency of urination. Neuromuscular: The patient complains of generalized pain. The patient denies seizures or generalized weakness. PHYSICAL EXAMINATION: VITAL SIGNS: Temperature 98.1 degrees, respirations 18, pulse 67, and blood pressure 158/90. GENERAL: The patient is well-developed, well-nourished, female, in no apparent distress. HEENT: Eyes, pupils are equal and responsive to light and accommodation. Extraocular movements are intact. NECK: Supple without lymphadenopathy. CHEST: Lungs are clear to auscultation bilaterally without wheezes or rales. CARDIOVASCULAR: Regular rhythm and rate. S1 and S2 are normal without murmurs, rubs, or gallops. ABDOMEN: Soft, nontender, and nondistended. Positive bowel sounds. No evidence of hepatosplenomegaly. Currently, no rebound or guarding noted. EXTREMITIES: Negative for clubbing, cyanosis, or edema. RECTAL: Refused. GENITAL: Refused. NEUROLOGIC: Cranial nerves II through XII were grossly intact without focal deficits. Motor strength is 5/5 bilaterally. Deep tendon reflexes are 2+ plantar. LABORATORY STUDIES: WBC 15.8, hemoglobin 7.4, hematocrit 23.8, and platelets 153,000. Sodium 140, potassium 3.1, chloride 104, CO2 25, BUN 8, creatinine 0.7, and glucose 86. Alkaline phosphatase is 144. Urinalysis was within normal limits. ProTime 11.7, INR 1.1, and PTT 30. Chest x-ray was within normal limits. ASSESSMENT: This is a 41-year-old female. 1. Generalized pain. 2. Sickle cell anemia. 3. Sickle cell crisis. 4. History of sickle cell disease. 5. Hypertension. 6. Asthma. TREATMENT: 1. Generalized pain. A pain management consultation has been obtained with Dr. Nuno. The patient is currently receiving intravenous Dilaudid. We will follow recommendations of pain management. 2. Sickle cell anemia/sickle cell crisis/sickle cell disease. A Hematology Oncology consultation was obtained with Dr. Anderson. 3. Hypertension. Continue Toprol as above. 4. Asthma. Continue Advair as above. Adrián Ceballos M.D. DR: DANN JOB#: [id number] CC:
[2016-11-26] MEDS: HYDROmorphone 1mg/ml Carpuject IVP PRN ×6 (01:06→11:31)
[2016-11-26] MEDS: LORazepam Inj 2mg/ml 1ml IV PRN ×3 (01:33→12:05)
[2016-11-26] MEDS: oxyCONTIN 20mg tab ORAL SCH ×3 (02:23→18:43)
[2016-11-26] MEDS: DiphenhydrAMINE 50mg/ml Inj IVP PRN ×5 (03:16→21:54)
[2016-11-26 04:00] VITALS: BP 127/91
[2016-11-26 06:08] LABS: MEAN CORPUSCULAR HEMOGLOBIN 29.7 PG (27.0-31.0); MEAN CORPUSCULAR HGB CONC 31.1 G/DL (32.0-36.0); MEAN CORPUSCULAR VOLUME 96 FL (80-99); MEAN PLATELET VOLUME 9.2 FL (6.5-10.1); PLATELET COUNT 104 K/UL (150-450); RED BLOOD COUNT 2.41 M/UL (4.20-5.40); RED CELL DISTRIBUTION WIDTH 19.3 % (11.6-14.8); WHITE BLOOD COUNT 12.6 K/UL (4.8-10.8)
[2016-11-26 06:23] LABS: INR 1.1 (0.9-1.1); PROTHROMBIN TIME 11.9 SEC (9.30-11.50)
[2016-11-26 06:33] LABS: ALANINE AMINOTRANSFERASE 13 U/L (3-33); ALBUMIN/GLOBULIN RATIO 0.8 (1.0-2.7); ANION GAP 11 (5-15); ASPARTATE AMINO TRANSFERASE 32 U/L (5-40); CALCIUM 9.8 mg/dL (8.6-10.2); CARBON DIOXIDE 27 mEQ/L (20-30); CHLORIDE 101 mEQ/L (98-107); CREATININE 0.7 mg/dL (0.5-0.9); CRP QUANT 1.3 mg/dL (< 0.5); GLOMERULAR FILTRATION RATE > 60 mL/min (>60); HEMOLYSIS 3; MAGNESIUM 1.8 mg/dL (1.7-2.5); PHOSPHORUS 4.8 mg/dL (2.5-4.8); POTASSIUM 4.2 mEQ/L (3.4-4.9); SODIUM 139 mEQ/L (135-145); TOTAL PROTEIN 8.1 g/dL (6.6-8.7)
[2016-11-26 06:34] LABS: HEMOLYSIS 3; IRON 175 ug/dL (37-145); TOTAL IRON BINDING CAPACITY 306 ug/dL (250-400)
[2016-11-26 06:39] LABS: FERRITIN 1141 ng/mL (13-150)
[2016-11-26 06:59] LABS: BILIRUBIN,DIRECT 0.8 mg/dL (0.1-0.3)
[2016-11-26 07:12] LABS: ERYTHROCYTE SEDIMENTATION RATE 66 MM/HR (0-20)
[2016-11-26 07:48] LABS: BAND NEUTROPHILS % (MANUAL) 0 % (0-8); BASOPHILS % (MANUAL) 0 % (0-2); EOSINOPHILS % (MANUAL) 12 % (0-3); HYPOCHROMASIA 1+; LYMPHOCYTES % (MANUAL) 57 % (20-45); NEUTROPHILS % (MANUAL) 24 % (45-75); PLATELET ESTIMATE DECREASED; TARGET CELLS 1+; TOTAL CELLS COUNTED 100
[2016-11-26 07:49] LABS: PLATELET MORPHOLOGY NORMAL; SICKLE CELLS 1+
[2016-11-26 07:51] LABS: ANISOCYTOSIS 2+
[2016-11-26 08:00] VITALS: BP 111/74
--- NOTE | 2016-11-26 08:00 | Consultation ---
DATE OF CONSULTATION: 11/25/2016 PAIN MANAGEMENT CONSULTATION CONSULTING PHYSICIAN: Wanda Nuno M.D. REFERRING PHYSICIAN: Dustin Syed M.D. PHYSICIAN [employer] HARVE[employer] STATION: [place] CHIEF COMPLAINT: Generalized body pain. HISTORY OF PRESENT ILLNESS: This is a 41-year-old female who is being seen on the Medical/Surgical floor of [facility] for initial comprehensive pain management consultation. The patient reports that she has been having severe pain throughout her body due to sickle cell disease and is in sickle cell crisis at this time. The pain is 10/10. She is complaining of pain as an aching, throbbing, and sharp pain, increased with movement, and at this time is on Dilaudid 2 mg IV every four hours as needed for severe pain for more than week at this time. The patient has been seeing her doctor as an outpatient and receiving OxyContin 80 mg tablets three times a day and Dilaudid 4 and 8 mg tablets as needed for pain as an outpatient. At this time, we were consulted so that the patient would have adequate pain control while here in the hospital for fast recovery. PAST MEDICAL HISTORY: Sickle cell disease. PAST SURGICAL HISTORY: Denies. ALLERGIES: Morphine and haloperidol. SOCIAL HISTORY: She is a smoker. She denies alcohol and IV drug abuse. REVIEW OF SYSTEMS: Denies rash, fever, chills, sweating, dizziness, drowsiness, blurred vision, sore throat, or change in her weight. No shortness of breath or chest pain. No nausea, vomiting, or blood in the stool or urine. No bowel or bladder incontinence. No dysuria. She is complaining of generalized body pain. PHYSICAL EXAMINATION: GENERAL: Alert, awake, and oriented. VITAL SIGNS: Blood pressure 167/88, heart rate 80, oxygen saturation 98%, respirations 18, and temperature is 98.2 degrees Fahrenheit. Height is 5 feet 4 inches and weight is 139 pounds. HEENT: PERRLA. NECK: Range of motion is full in all directions. No tenderness to paracervical muscles. No adenopathy. LUNGS: Decreased breath sounds bilaterally. HEART: S1 and S2 regular. ABDOMEN: Benign. BACK: Range of motion is decreased in flexion and extension with tenderness to paraspinal muscles. No tenderness to trapezius or rhomboid muscles. EXTREMITIES: Upper extremity range of motion is decreased due to the patient's medical condition. Motor is intact. No cyanosis. No clubbing. No edema. Sensory is intact. Reflexes are not obtainable. No adenopathy. Lower extremity range of motion is decreased due to the patient's medical condition. Motor is intact. No cyanosis. No clubbing. No edema. Sensory is intact. Reflexes are not obtainable. No adenopathy. ASSESSMENT: This is a 41-year-old female with sickle cell disease, sickle cell crisis, and generalized body pain. The patient will be started on OxyContin 40 mg tablet around the clock for sedation. We will continue Dilaudid 2 mg IV every two hours as needed for severe pain and Dilaudid 1 mg IV every four hours as needed for moderate pain. The patient was discussed with Dr. Nuno and Dr. Nuno concurred. We will follow the patient. Thank you very much for the courtesy of this consultation. Wanda Nuno M.D. NIK[place] DR: MARTINEZ JOB#: [id number] CC: KARINA
[2016-11-26] MEDS: Advair 250/50 Inhaler - 14 dose INH SCH ×2 (08:57→18:43)
[2016-11-26 09:06] LABS: PATH BLOOD SMEAR/OMC SENT TO PATHOLOGIST
[2016-11-26] MEDS: Dyna-Hex 2% Top Sol 8oz TOPIC SCH (09:31)
--- NOTE | 2016-11-26 09:52 | General Progress Note ---
Assessment/Plan Assessment/Plan (1) Sickle Cell Disease (2) Sickle Cell Crisis (3) Intractable pain The patient will be continued on OxyContin and Dilaudid. The patient was discussed with Dr. Nuno and Dr. Nuno concurred. Subjective Date patient seen: Nov 26, 2016 Time patient seen: 08:00 - am Allergies: Coded Allergies: MORPHINE (Verified Allergy, Mild, HALLUCINATIONS AND HIVES, 04/09/10) HALOPERIDOL (Verified Allergy, Unknown, 11/24/16) Subjective REVIEW OF SYSTEMS: Denies rash, fever, chills, sweating, dizziness, drowsiness, blurred vision, sore throat, or change in her weight. No shortness of breath or chest pain. No nausea, vomiting, or blood in the stool or urine. No bowel or bladder incontinence. No dysuria. She is complaining of generalized body pain. SUBJECTIVE: Pain has been stable on the Dilaudid and Oxycontin. She is in no signs of distress at this time. Objective Last 24 Hour Vital Signs Date Time Temp Pulse Resp B/P Pulse Ox O2 Delivery O2 Flow Rate FiO2 11/26/16 09:31 73 111/74 11/26/16 08:58 73 18 96 Room Air 11/26/16 08:58 Room Air 11/26/16 08:00 97.3 72 20 111/74 96 Room Air 11/26/16 04:00 97.7 69 18 127/91 96 Room Air 69 11/26/16 00:00 97.9 80 18 132/79 Room Air 11/25/16 21:28 Room Air 11/25/16 21:28 Room Air 11/25/16 20:00 98.1 81 18 146/82 97 Room Air 11/25/16 15:51 98.2 11/25/16 15:43 98.2 83 18 167/88 98 Room Air 11/25/16 11:26 98.1 67 18 158/90 100 Room Air 67 Intake and Output 11/25/16 11/26/16 19:00 07:00 Intake Total 825 ml 825 ml Balance 825 ml 825 ml Intake IV Total 825 ml 825 ml # Voids 6 # Bowel Movements 2 Laboratory Tests 11/26/16 05:30: White Blood Count 12.6H, Red Blood Count 2.41L, Hemoglobin 7.2L, Hematocrit 23.0L, Mean Corpuscular Volume 96, Mean Corpuscular Hemoglobin 29.7, Mean Corpuscular Hemoglobin Concent 31.1L, Red Cell Distribution Width 19.3H, Platelet Count 104L, Mean Platelet Volume 9.2, Neutrophils (%) (Auto) , Lymphocytes (%) (Auto) , Monocytes (%) (Auto) , Eosinophils (%) (Auto) , Basophils (%) (Auto) , Differential Total Cells Counted 100, Neutrophils % ( Manual) 24L, Lymphocytes % (Manual) 57H, Monocytes % (Manual) 7, Eosinophils % ( Manual) 12H, Basophils % (Manual) 0, Band Neutrophils 0, Platelet Estimate DecreasedL, Platelet Morphology Normal, Hypochromasia 1+, Anisocytosis 2+, Sickle Cells 1+H, Target Cells 1+, Erythrocyte Sedimentation Rate 66H, Reticulocyte Count 9.0H, Hemoglobin A [Pending], Hemoglobin A2 [Pending], Hemoglobin C [Pending], Hemoglobin F () [Pending], Hemoglobin S [Pending], Variant Hemoglobin [Pending], Hemoglobin Electrophoresis Interp [Pending], Hemoglobin Interpretation [Pending], Hemoglobin Solubility [Pending], Haptoglobin < 29L, Prothrombin Time 11.9H, Prothromb Time International Ratio 1.1, Sodium Level 139, Potassium Level 4.2, Chloride Level 101, Carbon Dioxide Level 27, Anion Gap 11, Blood Urea Nitrogen 15, Creatinine 0.7, Estimat Glomerular Filtration Rate > 60, Glucose Level 92, Calcium Level 9.8, Phosphorus Level 4.8, Magnesium Level 1.8, Iron Level 175H, Total Iron Binding Capacity 306, Percent Iron Saturation 57H, Unsaturated Iron Binding 131, Ferritin 1141H, Total Bilirubin 2.4H, Direct Bilirubin 0.8H, Aspartate Amino Transf (AST/SGOT) 32, Alanine Aminotransferase (ALT/SGPT) 13, Alkaline Phosphatase 167H, C-Reactive Protein, Quantitative 1.3H, Total Protein 8.1, Albumin 3.8, Globulin 4.3, Albumin/Globulin Ratio 0.8L, Vitamin B12 Level 430 Height (Feet): 5 Height (Inches): 4.00 Weight (Pounds): 137 Objective GENERAL: Alert, awake, and oriented. HEENT: PERRLA. NECK: Range of motion is full in all directions. No tenderness to paracervical muscles. No adenopathy. LUNGS: Decreased breath sounds bilaterally. HEART: S1 and S2 regular. ABDOMEN: Benign. EXTREMITIES: No cyanosis. No clubbing. NEURO: No changes. JEFFY CAMPA. Nov 26, 2016 09:51
[2016-11-26 12:00] VITALS: BP 132/83
--- NOTE | 2016-11-26 15:04 | Pulmonology Progress Note ---
Assessment/Plan Problems: (1) Sickle cell crisis (2) Anemia (3) intractable pain Assessment/Plan increase dilaudid fto 4 mag IV q 2 hours check LDH Subjective ROS Limited/Unobtainable: No Interval Events: still c/o of pain Constitutional: Reports: no symptoms HEENT: Repors: no symptoms Allergies: Coded Allergies: MORPHINE (Verified Allergy, Mild, HALLUCINATIONS AND HIVES, 04/09/10) HALOPERIDOL (Verified Allergy, Unknown, 11/24/16) Objective Last 24 Hour Vital Signs Date Time Temp Pulse Resp B/P Pulse Ox O2 Delivery O2 Flow Rate FiO2 11/26/16 12:00 97.9 77 20 132/83 93 Room Air 11/26/16 09:31 73 111/74 11/26/16 08:58 73 18 96 Room Air 11/26/16 08:58 Room Air 11/26/16 08:00 97.3 72 20 111/74 96 Room Air 11/26/16 04:00 97.7 69 18 127/91 96 Room Air 69 11/26/16 00:00 97.9 80 18 132/79 Room Air 11/25/16 21:28 Room Air 11/25/16 21:28 Room Air 11/25/16 20:00 98.1 81 18 146/82 97 Room Air 11/25/16 15:51 98.2 11/25/16 15:43 98.2 83 18 167/88 98 Room Air Intake and Output 11/25/16 11/26/16 19:00 07:00 Intake Total 825 ml 825 ml Balance 825 ml 825 ml Intake IV Total 825 ml 825 ml # Voids 6 # Bowel Movements 2 General Appearance: cachetic HEENT: normocephalic, anicteric Respiratory/Chest: chest wall non-tender, normal breath sounds Cardiovascular: normal rate Abdomen: normal bowel sounds, soft, non tender Genitourinary: normal external genitalia Extremities: no clubbing Skin: no rash 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 Complete 11/24/16 19:50 Rectum VRE Culture - Final NO VANCOMYCIN RESISTANT ENTEROCOCCUS ... Complete Laboratory Tests 11/26/16 05:30: White Blood Count 12.6H, Red Blood Count 2.41L, Hemoglobin 7.2L, Hematocrit 23.0L, Mean Corpuscular Volume 96, Mean Corpuscular Hemoglobin 29.7, Mean Corpuscular Hemoglobin Concent 31.1L, Red Cell Distribution Width 19.3H, Platelet Count 104L, Mean Platelet Volume 9.2, Neutrophils (%) (Auto) , Lymphocytes (%) (Auto) , Monocytes (%) (Auto) , Eosinophils (%) (Auto) , Basophils (%) (Auto) , Differential Total Cells Counted 100, Neutrophils % ( Manual) 24L, Lymphocytes % (Manual) 57H, Monocytes % (Manual) 7, Eosinophils % ( Manual) 12H, Basophils % (Manual) 0, Band Neutrophils 0, Platelet Estimate DecreasedL, Platelet Morphology Normal, Hypochromasia 1+, Anisocytosis 2+, Sickle Cells 1+H, Target Cells 1+, Erythrocyte Sedimentation Rate 66H, Reticulocyte Count 9.0H, Hemoglobin A [Pending], Hemoglobin A2 [Pending], Hemoglobin C [Pending], Hemoglobin F () [Pending], Hemoglobin S [Pending], Variant Hemoglobin [Pending], Hemoglobin Electrophoresis Interp [Pending], Hemoglobin Interpretation [Pending], Hemoglobin Solubility [Pending], Haptoglobin < 29L, Prothrombin Time 11.9H, Prothromb Time International Ratio 1.1, Sodium Level 139, Potassium Level 4.2, Chloride Level 101, Carbon Dioxide Level 27, Anion Gap 11, Blood Urea Nitrogen 15, Creatinine 0.7, Estimat Glomerular Filtration Rate > 60, Glucose Level 92, Calcium Level 9.8, Phosphorus Level 4.8, Magnesium Level 1.8, Iron Level 175H, Total Iron Binding Capacity 306, Percent Iron Saturation 57H, Unsaturated Iron Binding 131, Ferritin 1141H, Total Bilirubin 2.4H, Direct Bilirubin 0.8H, Aspartate Amino Transf (AST/SGOT) 32, Alanine Aminotransferase (ALT/SGPT) 13, Alkaline Phosphatase 167H, C-Reactive Protein, Quantitative 1.3H, Total Protein 8.1, Albumin 3.8, Globulin 4.3, Albumin/Globulin Ratio 0.8L, Vitamin B12 Level 430 Current Medications Medications (Trade) Dose Ordered Sig/Dixie Route PRN Reason Start Time Stop Time Status Last Admin Dose Admin Chlorhexidine Gluconate (Natalie-Hex 2%) 1 applic DAILY TOPIC 11/25/16 14:00 12/25/16 13:59 11/26/16 09:31 Clonidine HCl (Catapres) 0.1 mg Q4H PRN ORAL For High Blood Pressure 11/25/16 17:00 12/25/16 16:59 Diphenhydramine HCl (Benadryl) 50 mg Q4H PRN IVP Itching 11/25/16 17:00 12/25/16 16:59 11/26/16 11:32 Hydromorphone HCl (Dilaudid) 1 mg Q4H PRN IVP For Mild to Moderate Pain 11/24/16 23:45 12/01/16 23:44 Hydromorphone HCl (Dilaudid) 2 mg Q2H PRN IVP For Severe Pain 11/26/16 12:45 12/02/16 18:59 Hydromorphone HCl (Dilaudid) 2 mg Q2H PRN IVP For Severe Pain 11/26/16 13:00 12/02/16 12:59 11/26/16 13:46 Lorazepam (Ativan 2mg/ml 1ml) 1 mg Q4H PRN IV For Anxiety 11/25/16 16:45 12/02/16 16:44 11/26/16 12:05 Metoprolol Succinate (Toprol XL) 50 mg Q12HR ORAL 11/26/16 09:00 12/26/16 08:59 11/26/16 09:31 Ondansetron HCl (Zofran) 4 mg Q4H PRN IVP Nausea & Vomiting 11/24/16 23:45 12/24/16 23:44 Oxycodone HCl (OxyCONTIN) 40 mg Q8HR@0200,1000,1800 ORAL 11/25/16 19:00 12/02/16 18:59 11/26/16 02:23 Salmeterol Xinafoate/ Fluticasone 1 puffs 1 puffs BID INH 11/25/16 09:00 12/25/16 08:59 11/25/16 09:17 Sodium Chloride (Sodium Chloride 1000ml bag) 1,000 ml @ 75 mls/hr [id number] IV 11/25/16 00:30 12/25/16 00:29 11/26/16 03:15 Warfarin Sodium (Coumadin per pharmacy) 1 ea DAILY PRN MISC Per rx protocol 11/24/16 23:45 12/24/16 23:44 Warfarin Sodium (Coumadin) 7.5 mg COUMADIN ONCE ORAL 11/26/16 17:00 11/26/16 17:01 ISIAH ANTOINE Nov 26, 2016 15:04
[2016-11-26 16:00] VITALS: BP 111/65
[2016-11-26] MEDS ORDERED: Warfarin Sodium 7.5mg ORAL ONE (17:00)
--- NOTE | 2016-11-26 18:35 | Internal Med Progress Note ---
Subjective Date of Service: Nov 26, 2016 Physician Name Casie Posada Attending Physician Gurmeet Sears MD Current Medications Medications (Trade) Dose Ordered Sig/Dixie Route PRN Reason Start Time Stop Time Status Last Admin Dose Admin Chlorhexidine Gluconate (Natalie-Hex 2%) 1 applic DAILY TOPIC 11/25/16 14:00 12/25/16 13:59 11/26/16 09:31 Clonidine HCl (Catapres) 0.1 mg Q4H PRN ORAL For High Blood Pressure 11/25/16 17:00 12/25/16 16:59 Diphenhydramine HCl (Benadryl) 50 mg Q4H PRN IVP Itching 11/25/16 17:00 12/25/16 16:59 11/26/16 15:41 Hydromorphone HCl (Dilaudid) 4 mg Q3H PRN IVP For Severe Pain 11/26/16 18:00 12/03/16 17:59 Lorazepam (Ativan 2mg/ml 1ml) 1 mg Q4H PRN IV For Anxiety 11/25/16 16:45 12/02/16 16:44 11/26/16 12:05 Metoprolol Succinate (Toprol XL) 50 mg Q12HR ORAL 11/26/16 09:00 12/26/16 08:59 11/26/16 09:31 Ondansetron HCl (Zofran) 4 mg Q4H PRN IVP Nausea & Vomiting 11/24/16 23:45 12/24/16 23:44 Oxycodone HCl (OxyCONTIN) 40 mg Q8HR@0200,1000,1800 ORAL 11/25/16 19:00 12/02/16 18:59 11/26/16 02:23 Salmeterol Xinafoate/ Fluticasone 1 puffs 1 puffs BID INH 11/25/16 09:00 12/25/16 08:59 11/25/16 09:17 Sodium Chloride (Sodium Chloride 1000ml bag) 1,000 ml @ 75 mls/hr [id number] IV 11/25/16 00:30 12/25/16 00:29 11/26/16 16:54 Warfarin Sodium (Coumadin per pharmacy) 1 ea DAILY PRN MISC Per rx protocol 11/24/16 23:45 12/24/16 23:44 Allergies: Coded Allergies: MORPHINE (Verified Allergy, Mild, HALLUCINATIONS AND HIVES, 04/09/10) HALOPERIDOL (Verified Allergy, Unknown, 11/24/16) ROS Limited/Unobtainable: No Constitutional: Reports: no symptoms HEENT: Reports: no symptoms Cardiovascular: Reports: no symptoms Respiratory: Reports: no symptoms Gastrointestinal/Abdominal: Reports: no symptoms Genitourinary: Reports: no symptoms Neurologic/Psychiatric: Reports: no symptoms Subjective 41 YO F admitted with sickle cell crisis and generalized pain. Cover for Int Med Dr Sears. Await heme/onc eval. Objective Last Vital Signs Date Time Temp Pulse Resp B/P Pulse Ox O2 Delivery O2 Flow Rate FiO2 11/26/16 16:00 98.1 87 20 111/65 90 Room Air General Appearance: WD/WN, no apparent distress, alert EENT: PERRL/EOMI, normal ENT inspection, TMs normal Neck: non-tender, normal alignment, supple, normal inspection Cardiovascular: normal peripheral pulses, normal rate, regular rhythm, no gallop/murmur, no JVD Respiratory/Chest: chest wall non-tender, lungs clear, normal breath sounds, no respiratory distress, no accessory muscle use Abdomen: normal bowel sounds, non tender, soft, no organomegaly, no mass Extremities: normal range of motion Edema: trace edema 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, no motor/sensory deficits Skin: normal pigmentation, warm/dry Laboratory Tests Test 11/26/16 05:30 White Blood Count 12.6 K/UL (4.8-10.8) H Red Blood Count 2.41 M/UL (4.20-5.40) L Hemoglobin 7.2 G/DL (12.0-16.0) L Hematocrit 23.0 % (37.0-47.0) L Mean Corpuscular Volume 96 FL (80-99) Mean Corpuscular Hemoglobin 29.7 PG (27.0-31.0) Mean Corpuscular Hemoglobin Concent 31.1 G/DL (32.0-36.0) L Red Cell Distribution Width 19.3 % (11.6-14.8) H Platelet Count 104 K/UL (150-450) L Mean Platelet Volume 9.2 FL (6.5-10.1) Neutrophils (%) (Auto) % (45.0-75.0) Lymphocytes (%) (Auto) % (20.0-45.0) Monocytes (%) (Auto) % (1.0-10.0) Eosinophils (%) (Auto) % (0.0-3.0) Basophils (%) (Auto) % (0.0-2.0) Differential Total Cells Counted 100 Neutrophils % (Manual) 24 % (45-75) L Lymphocytes % (Manual) 57 % (20-45) H Monocytes % (Manual) 7 % (1-10) Eosinophils % (Manual) 12 % (0-3) H Basophils % (Manual) 0 % (0-2) Band Neutrophils 0 % (0-8) Platelet Estimate Decreased L Platelet Morphology Normal Hypochromasia 1+ Anisocytosis 2+ Sickle Cells 1+ H Target Cells 1+ Erythrocyte Sedimentation Rate 66 MM/HR (0-20) H Reticulocyte Count 9.0 % (0.0-2.0) H Hemoglobin A Pending Hemoglobin A2 Pending Hemoglobin C Pending Hemoglobin F () Pending Hemoglobin S Pending Variant Hemoglobin Pending Hemoglobin Electrophoresis Interp Pending Hemoglobin Interpretation Pending Hemoglobin Solubility Pending Haptoglobin < 29 mg/dL (30-200) L Prothrombin Time 11.9 SEC (9.30-11.50) H Prothromb Time International Ratio 1.1 (0.9-1.1) Sodium Level 139 mEQ/L (135-145) Potassium Level 4.2 mEQ/L (3.4-4.9) Chloride Level 101 mEQ/L (98-107) Carbon Dioxide Level 27 mEQ/L (20-30) Anion Gap 11 (5-15) Blood Urea Nitrogen 15 mg/dL (7-23) Creatinine 0.7 mg/dL (0.5-0.9) Estimat Glomerular Filtration Rate > 60 mL/min (>60) Glucose Level 92 mg/dL (74-106) Calcium Level 9.8 mg/dL (8.6-10.2) Phosphorus Level 4.8 mg/dL (2.5-4.8) Magnesium Level 1.8 mg/dL (1.7-2.5) Iron Level 175 ug/dL (37-145) H Total Iron Binding Capacity 306 ug/dL (250-400) Percent Iron Saturation 57 % (15-50) H Unsaturated Iron Binding 131 ug/dL (112-346) Ferritin 1141 ng/mL (13-150) H Total Bilirubin 2.4 mg/dL (0.0-1.2) H Direct Bilirubin 0.8 mg/dL (0.1-0.3) H Aspartate Amino Transf (AST/SGOT) 32 U/L (5-40) Alanine Aminotransferase (ALT/SGPT) 13 U/L (3-33) Alkaline Phosphatase 167 U/L (35-104) H C-Reactive Protein, Quantitative 1.3 mg/dL (< 0.5) H Total Protein 8.1 g/dL (6.6-8.7) Albumin 3.8 g/dL (3.5-5.2) Globulin 4.3 g/dL Albumin/Globulin Ratio 0.8 (1.0-2.7) L Vitamin B12 Level 430 pg/mL (211-946) Microbiology Date/Time Source Procedure Growth Status 11/24/16 19:50 Nasal Nares MRSA Culture - Final NO METHICILLIN RESISTANT STAPH AUREUS... Complete 11/24/16 19:50 Rectum VRE Culture - Final NO VANCOMYCIN RESISTANT ENTEROCOCCUS ... Complete Intake and Output 11/25/16 11/26/16 19:00 07:00 Intake Total 825 ml 825 ml Balance 825 ml 825 ml Intake IV Total 825 ml 825 ml # Voids 6 # Bowel Movements 2 Assessment/Plan Problem List: (1) Asthma (2) Opioid abuse (3) opiate dependent Assessment & Plan: Continue IV dilaudid and oral oxycontin per pain management (4) acute on chronic pain Assessment & Plan: See pain management note; follow recs. (5) Sickle cell crisis (6) H/O sickle cell anemia Assessment & Plan: Await heme/onc eval (7) Hypertension Assessment & Plan: Cont metoprolol Status: not improved CASIE POSADA Nov 26, 2016 18:35
[2016-11-26 20:00] VITALS: BP 116/74
--- NOTE | 2016-11-26 21:33 | Consultation ---
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 Will follow JESSI MIRELES Nov 26, 2016 21:33
[2016-11-27] VITALS: BP 126/76
--- NOTE | 2016-11-27 | Consultation ---
DATE OF CONSULTATION: 11/26/2016 INFECTIOUS DISEASE CONSULTATION CONSULTING PHYSICIAN: Brennan Goodwin M.D. REQUESTING PHYSICIAN: Gurmeet Sears M.D. REASON FOR CONSULTATION: Leukocytosis. HISTORY OF PRESENT ILLNESS: This is a 41-year-old female with a history of sickle cell disease and medical noncompliance, admitted on 11/25/2016 with total body pain. Workup was consistent with sickle cell crisis. She has associated mild leukocytosis, but no fevers. Urinalysis is benign, and chest x-ray shows no acute findings. Currently not receiving any antibiotics and Infectious Disease now consulted to assist in management. PAST MEDICAL HISTORY: 1. Sickle cell disease. 2. Sickle cell anemia. 3. Asthma. 4. Hypertension. 5. History of DVT and pulmonary embolus. PAST SURGICAL HISTORY: 1. Cholecystectomy. 2. Appendectomy. 3. Tonsillectomy and adenoidectomy. 4. . FAMILY HISTORY: Noncontributory. SOCIAL HISTORY: The patient lives locally with her brother and children. She has a history of leaving against medical advice. Active smoker. ALLERGIES: 1. Haldol. 2. Morphine. MEDICATIONS: 1. No antibiotics. 2. Coumadin. 3. Dilaudid. 4. Metoprolol. 5. Advair. REVIEW OF SYSTEMS: As per history of present illness. Ten systems reviewed, all pertinent positives and negatives noted. PHYSICAL EXAMINATION: VITAL SIGNS: Maximum temperature 98.6, blood pressure 116/74, heart rate in the 70s, respiratory rate 18, and saturating 91% on room air. GENERAL: No apparent distress, nontoxic appearing. HEENT: No oral lesions. CARDIOVASCULAR: Regular rate and rhythm. No murmurs. PULMONARY: Clear to auscultation bilaterally. ABDOMEN: Bowel sounds present. Soft, nondistended, and nontender. EXTREMITIES: No edema. SKIN: No rash. NEUROLOGICAL: Alert and oriented x3. Nonfocal. LABORATORY DATA: White blood cell count is 12.6, decreased from 13; hemoglobin 7.2 increased from 7, and platelets 104,000. Sodium 139, potassium 4.2, chloride 101, bicarbonate 27, BUN 15, and creatinine 0.7. INR 1.1. AST 32, ALT 13, alkaline phosphatase 167, and total bilirubin 2.4. Albumin 3.8. LDH 371. Troponin negative x1. CRP 1.3. ESR 66. Haptoglobin less than 29. Reticulocyte count 9%. Urinalysis negative. Urine drug screen positive for opiates. MICROBIOLOGY: None. IMAGIN. A 11/26/2016 bilateral lower extremity Doppler ultrasound negative for DVT. 2. A 11/24/2016 chest x-ray, no acute findings. ASSESSMENT: 1. Leukocytosis, improved and afebrile and appears fairly chronic, most likely secondary to functional asplenia due to infarction. She has no evidence of urinary tract infection or pneumonia. 2. Sickle cell crisis. 3. Sickle cell anemia. 4. Thrombocytopenia. 5. Elevated ESR and CRP. 6. History of deep vein thrombosis and pulmonary embolus, on Coumadin. Doppler ultrasound was negative for DVT. 7. Tobacco abuse. 8. History of medical noncompliance and leaving against medical advice. 9. Negative Methicillin-resistant Staphylococcus aureus and Vancomycin-resistant Enterococcus screens. 10. No antibiotic allergies. 11. Full Code. PLAN: 1. Continue to monitor the patient off of antibiotics for now. 2. Transfuse as needed. 3. Monitor CBC and temperatures. Thank you. We will follow. Brennan Goodwin M.D. DR: WILLIAM JOB#: [id number] CC: Gurmeet Sears M.D.; Fax#: [phone] Nur M.D; Fax#: [phone]
[2016-11-27] MEDS: LORazepam Inj 2mg/ml 1ml IV PRN ×3 (00:37→18:23)
[2016-11-27] MEDS: DiphenhydrAMINE 50mg/ml Inj IVP PRN ×5 (02:30→20:02)
[2016-11-27] MEDS: oxyCONTIN 20mg tab ORAL SCH ×3 (02:31→18:23)
[2016-11-27 04:00] VITALS: BP 121/75
[2016-11-27 07:13] LABS: MEAN CORPUSCULAR HEMOGLOBIN 30.5 PG (27.0-31.0); MEAN CORPUSCULAR HGB CONC 32.1 G/DL (32.0-36.0); MEAN CORPUSCULAR VOLUME 95 FL (80-99); MEAN PLATELET VOLUME 9.8 FL (6.5-10.1); PLATELET COUNT 104 K/UL (150-450); RED BLOOD COUNT 2.03 M/UL (4.20-5.40); RED CELL DISTRIBUTION WIDTH 21.6 % (11.6-14.8); WHITE BLOOD COUNT 13.2 K/UL (4.8-10.8)
[2016-11-27 07:23] LABS: INR 1.3 (0.9-1.1); PROTHROMBIN TIME 13.2 SEC (9.30-11.50)
[2016-11-27 07:36] LABS: ALANINE AMINOTRANSFERASE 11 U/L (3-33); ALBUMIN/GLOBULIN RATIO 0.9 (1.0-2.7); ANION GAP 11 (5-15); ASPARTATE AMINO TRANSFERASE 32 U/L (5-40); CALCIUM 9.5 mg/dL (8.6-10.2); CARBON DIOXIDE 28 mEQ/L (20-30); CHLORIDE 102 mEQ/L (98-107); CREATININE 0.7 mg/dL (0.5-0.9); GLOMERULAR FILTRATION RATE > 60 mL/min (>60); HEMOLYSIS 2; MAGNESIUM 1.7 mg/dL (1.7-2.5); PHOSPHORUS 4.3 mg/dL (2.5-4.8); POTASSIUM 4.2 mEQ/L (3.4-4.9); SODIUM 141 mEQ/L (135-145); TOTAL PROTEIN 7.1 g/dL (6.6-8.7)
[2016-11-27 07:51] LABS: BILIRUBIN,DIRECT 0.8 mg/dL (0.1-0.3)
[2016-11-27 08:29] VITALS: BP 114/83
[2016-11-27] MEDS: Advair 250/50 Inhaler - 14 dose INH SCH ×2 (08:33→20:09)
[2016-11-27] MEDS: Dyna-Hex 2% Top Sol 8oz TOPIC SCH (10:14)
[2016-11-27 10:33] LABS: TOTAL CELLS COUNTED 100
[2016-11-27 10:34] LABS: EOSINOPHILS % (MANUAL) 7 % (0-3); LYMPHOCYTES % (MANUAL) 60 % (20-45); NEUTROPHILS % (MANUAL) 25 % (45-75)
[2016-11-27 10:35] LABS: ANISOCYTOSIS 2+; BAND NEUTROPHILS % (MANUAL) 0 % (0-8); BASOPHILS % (MANUAL) 0 % (0-2); HYPOCHROMASIA 2+; PLATELET ESTIMATE DECREASED; PLATELET MORPHOLOGY NORMAL
[2016-11-27 10:36] LABS: SICKLE CELLS OCCASIONAL; TARGET CELLS 1+
[2016-11-27 12:01] VITALS: BP 124/63
[2016-11-27 15:23] VITALS: BP 120/67
[2016-11-27] MEDS ORDERED: Warfarin Sodium 7.5mg ORAL ONE (17:00)
--- NOTE | 2016-11-27 17:31 | Internal Med Progress Note ---
Subjective Date of Service: Nov 27, 2016 Physician Name LinCasie Attending Physician Gurmeet Seras MD Current Medications Medications (Trade) Dose Ordered Sig/Dixie Route PRN Reason Start Time Stop Time Status Last Admin Dose Admin Chlorhexidine Gluconate (Natalie-Hex 2%) 1 applic DAILY TOPIC 11/25/16 14:00 12/25/16 13:59 11/27/16 10:14 Clonidine HCl (Catapres) 0.1 mg Q4H PRN ORAL For High Blood Pressure 11/25/16 17:00 12/25/16 16:59 Diphenhydramine HCl (Benadryl) 50 mg Q4H PRN IVP Itching 11/25/16 17:00 12/25/16 16:59 11/27/16 15:56 Hydromorphone HCl (Dilaudid) 4 mg Q3H PRN IVP For Severe Pain 11/26/16 18:00 12/03/16 17:59 11/27/16 15:56 Lorazepam (Ativan 2mg/ml 1ml) 1 mg Q4H PRN IV For Anxiety 11/25/16 16:45 12/02/16 16:44 11/27/16 13:45 Metoprolol Succinate (Toprol XL) 50 mg Q12HR ORAL 11/26/16 09:00 12/26/16 08:59 11/26/16 22:03 Ondansetron HCl (Zofran) 4 mg Q4H PRN IVP Nausea & Vomiting 11/24/16 23:45 12/24/16 23:44 Oxycodone HCl (OxyCONTIN) 40 mg Q8HR@0200,1000,1800 ORAL 11/25/16 19:00 12/02/16 18:59 11/27/16 10:14 Salmeterol Xinafoate/ Fluticasone 1 puffs 1 puffs BID INH 11/25/16 09:00 12/25/16 08:59 11/27/16 08:33 Sodium Chloride (Sodium Chloride 1000ml bag) 1,000 ml @ 75 mls/hr [id number] IV 11/25/16 00:30 12/25/16 00:29 11/27/16 05:52 Warfarin Sodium (Coumadin per pharmacy) 1 ea DAILY PRN MISC Per rx protocol 11/24/16 23:45 12/24/16 23:44 Allergies: Coded Allergies: MORPHINE (Verified Allergy, Mild, HALLUCINATIONS AND HIVES, 04/09/10) HALOPERIDOL (Verified Allergy, Unknown, 11/24/16) ROS Limited/Unobtainable: No Constitutional: Reports: no symptoms HEENT: Reports: no symptoms Cardiovascular: Reports: no symptoms Respiratory: Reports: no symptoms Gastrointestinal/Abdominal: Reports: no symptoms Genitourinary: Reports: no symptoms Neurologic/Psychiatric: Reports: no symptoms Subjective 41 YO F admitted with sickle cell crisis and generalized pain. Cover for Int Med Dr Sears. Await heme/onc eval. Worsening anemia Objective Last Vital Signs Date Time Temp Pulse Resp B/P Pulse Ox O2 Delivery O2 Flow Rate FiO2 11/27/16 15:23 98.1 84 18 120/67 95 Room Air 11/27/16 08:45 21 Laboratory Tests Test 11/27/16 06:00 11/27/16 06:30 White Blood Count 13.2 K/UL (4.8-10.8) H Red Blood Count 2.03 M/UL (4.20-5.40) L Hemoglobin 6.2 G/DL (12.0-16.0) *L Hematocrit 19.3 % (37.0-47.0) L Mean Corpuscular Volume 95 FL (80-99) Mean Corpuscular Hemoglobin 30.5 PG (27.0-31.0) Mean Corpuscular Hemoglobin Concent 32.1 G/DL (32.0-36.0) Red Cell Distribution Width 21.6 % (11.6-14.8) H Platelet Count 104 K/UL (150-450) L Mean Platelet Volume 9.8 FL (6.5-10.1) Neutrophils (%) (Auto) % (45.0-75.0) Lymphocytes (%) (Auto) % (20.0-45.0) Monocytes (%) (Auto) % (1.0-10.0) Eosinophils (%) (Auto) % (0.0-3.0) Basophils (%) (Auto) % (0.0-2.0) Differential Total Cells Counted 100 Neutrophils % (Manual) 25 % (45-75) L Lymphocytes % (Manual) 60 % (20-45) H Monocytes % (Manual) 8 % (1-10) Eosinophils % (Manual) 7 % (0-3) H Basophils % (Manual) 0 % (0-2) Band Neutrophils 0 % (0-8) Platelet Estimate Decreased L Platelet Morphology Normal Giant Platelets Occasional Hypochromasia 2+ Anisocytosis 2+ Sickle Cells Occasional H Target Cells 1+ Prothrombin Time 13.2 SEC (9.30-11.50) H Prothromb Time International Ratio 1.3 (0.9-1.1) H Sodium Level 141 mEQ/L (135-145) Potassium Level 4.2 mEQ/L (3.4-4.9) Chloride Level 102 mEQ/L (98-107) Carbon Dioxide Level 28 mEQ/L (20-30) Anion Gap 11 (5-15) Blood Urea Nitrogen 15 mg/dL (7-23) Creatinine 0.7 mg/dL (0.5-0.9) Estimat Glomerular Filtration Rate > 60 mL/min (>60) Glucose Level 92 mg/dL (74-106) Calcium Level 9.5 mg/dL (8.6-10.2) Phosphorus Level 4.3 mg/dL (2.5-4.8) Magnesium Level 1.7 mg/dL (1.7-2.5) Total Bilirubin 2.2 mg/dL (0.0-1.2) H Direct Bilirubin 0.8 mg/dL (0.1-0.3) H Aspartate Amino Transf (AST/SGOT) 32 U/L (5-40) Alanine Aminotransferase (ALT/SGPT) 11 U/L (3-33) Alkaline Phosphatase 150 U/L (35-104) H Lactate Dehydrogenase Pending Total Protein 7.1 g/dL (6.6-8.7) Albumin 3.4 g/dL (3.5-5.2) L Globulin 3.7 g/dL Albumin/Globulin Ratio 0.9 (1.0-2.7) L Hemoglobin A Pending Hemoglobin A2 Pending Hemoglobin C Pending Hemoglobin F () Pending Hemoglobin S Pending Variant Hemoglobin Pending Hemoglobin Electrophoresis Interp Pending Hemoglobin Interpretation Pending Hemoglobin Solubility Pending Microbiology Date/Time Source Procedure Growth Status 11/24/16 19:50 Nasal Nares MRSA Culture - Final NO METHICILLIN RESISTANT STAPH AUREUS... Complete 11/24/16 19:50 Rectum VRE Culture - Final NO VANCOMYCIN RESISTANT ENTEROCOCCUS ... Complete Intake and Output 11/26/16 11/27/16 19:00 07:00 Intake Total 1300 ml 825 ml Balance 1300 ml 825 ml Intake Oral 400 ml IV Total 900 ml 825 ml # Voids 5 2 Objective General Appearance: WD/WN, no apparent distress, alert EENT: PERRL/EOMI, normal ENT inspection, TMs normal Neck: non-tender, normal alignment, supple, normal inspection Cardiovascular: normal peripheral pulses, normal rate, regular rhythm, no gallop/murmur, no JVD Respiratory/Chest: chest wall non-tender, lungs clear, normal breath sounds, no respiratory distress, no accessory muscle use Abdomen: normal bowel sounds, non tender, soft, no organomegaly, no mass Extremities: normal range of motion Edema: trace edema 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 (5) Sickle cell crisis (6) H/O sickle cell anemia Assessment & Plan: Await heme/onc eval (7) Hypertension Assessment & Plan: Cont metoprolol (8) Severe anemia Assessment & Plan: Transfuse 2 units PRBC today when available. Status: not improved CASIE POSADA Nov 27, 2016 17:31
--- NOTE | 2016-11-27 17:59 | Infectious Diseases Prog Note ---
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 contributing ) - no evidence of UTI or PNA // Sickle cell crisis // Sickle cell anemia // Thrombocytopenia // Elevated ESR, CRP // h/o DVT / PE, on coumadin - doppler(-) DVT // Tobacco abuse // Medical noncompliance, h/o AMA // Negative MRSA, VRE screens // No ABX allergies // Full Code PLAN: - start augmentin d# dental, pulmonary coverage - transfuse prn - monitor CBC, temperatures Subjective Allergies: Coded Allergies: MORPHINE (Verified Allergy, Mild, HALLUCINATIONS AND HIVES, 04/09/10) HALOPERIDOL (Verified Allergy, Unknown, 11/24/16) Subjective remains afebrile c/o sickle pain cough yellow sputum Objective Vital Signs Last 24 Hour Vital Signs Date Time Temp Pulse Resp B/P Pulse Ox O2 Delivery O2 Flow Rate FiO2 11/27/16 15:23 98.1 84 18 120/67 95 Room Air 11/27/16 12:01 98.1 79 19 124/63 90 Room Air 11/27/16 09:00 76 110/72 11/27/16 08:45 80 18 95 Room Air 21 11/27/16 08:45 80 18 95 Room Air 21 11/27/16 08:29 98.2 79 18 114/83 92 Room Air 11/27/16 04:00 98.6 81 18 121/75 91 Room Air 11/27/16 00:00 97.8 76 20 126/76 91 Room Air 11/26/16 22:03 72 116/74 11/26/16 20:00 97.7 72 18 116/74 91 Room Air 11/26/16 18:55 Room Air 11/26/16 18:55 Room Air Height (Feet): 5 Height (Inches): 4.00 Weight (Pounds): 137 General Appearance: no acute distress HEENT: other - poor dentition Respiratory/Chest: no respiratory distress Cardiovascular: normal rate, regular rhythm Abdomen: normal bowel sounds, soft, non tender, non distended Microbiology Date/Time Source Procedure Growth Status 11/24/16 19:50 Nasal Nares MRSA Culture - Final NO METHICILLIN RESISTANT STAPH AUREUS... Complete 11/24/16 19:50 Rectum VRE Culture - Final NO VANCOMYCIN RESISTANT ENTEROCOCCUS ... Complete Laboratory Tests Test 11/27/16 06:00 11/27/16 06:30 White Blood Count 13.2 K/UL (4.8-10.8) H Red Blood Count 2.03 M/UL (4.20-5.40) L Hemoglobin 6.2 G/DL (12.0-16.0) *L Hematocrit 19.3 % (37.0-47.0) L Mean Corpuscular Volume 95 FL (80-99) Mean Corpuscular Hemoglobin 30.5 PG (27.0-31.0) Mean Corpuscular Hemoglobin Concent 32.1 G/DL (32.0-36.0) Red Cell Distribution Width 21.6 % (11.6-14.8) H Platelet Count 104 K/UL (150-450) L Mean Platelet Volume 9.8 FL (6.5-10.1) Neutrophils (%) (Auto) % (45.0-75.0) Lymphocytes (%) (Auto) % (20.0-45.0) Monocytes (%) (Auto) % (1.0-10.0) Eosinophils (%) (Auto) % (0.0-3.0) Basophils (%) (Auto) % (0.0-2.0) Differential Total Cells Counted 100 Neutrophils % (Manual) 25 % (45-75) L Lymphocytes % (Manual) 60 % (20-45) H Monocytes % (Manual) 8 % (1-10) Eosinophils % (Manual) 7 % (0-3) H Basophils % (Manual) 0 % (0-2) Band Neutrophils 0 % (0-8) Platelet Estimate Decreased L Platelet Morphology Normal Giant Platelets Occasional Hypochromasia 2+ Anisocytosis 2+ Sickle Cells Occasional H Target Cells 1+ Prothrombin Time 13.2 SEC (9.30-11.50) H Prothromb Time International Ratio 1.3 (0.9-1.1) H Sodium Level 141 mEQ/L (135-145) Potassium Level 4.2 mEQ/L (3.4-4.9) Chloride Level 102 mEQ/L (98-107) Carbon Dioxide Level 28 mEQ/L (20-30) Anion Gap 11 (5-15) Blood Urea Nitrogen 15 mg/dL (7-23) Creatinine 0.7 mg/dL (0.5-0.9) Estimat Glomerular Filtration Rate > 60 mL/min (>60) Glucose Level 92 mg/dL (74-106) Calcium Level 9.5 mg/dL (8.6-10.2) Phosphorus Level 4.3 mg/dL (2.5-4.8) Magnesium Level 1.7 mg/dL (1.7-2.5) Total Bilirubin 2.2 mg/dL (0.0-1.2) H Direct Bilirubin 0.8 mg/dL (0.1-0.3) H Aspartate Amino Transf (AST/SGOT) 32 U/L (5-40) Alanine Aminotransferase (ALT/SGPT) 11 U/L (3-33) Alkaline Phosphatase 150 U/L (35-104) H Lactate Dehydrogenase Pending Total Protein 7.1 g/dL (6.6-8.7) Albumin 3.4 g/dL (3.5-5.2) L Globulin 3.7 g/dL Albumin/Globulin Ratio 0.9 (1.0-2.7) L Hemoglobin A Pending Hemoglobin A2 Pending Hemoglobin C Pending Hemoglobin F () Pending Hemoglobin S Pending Variant Hemoglobin Pending Hemoglobin Electrophoresis Interp Pending Hemoglobin Interpretation Pending Hemoglobin Solubility Pending Current Medications Medications (Trade) Dose Ordered Sig/Dixie Route PRN Reason Start Time Stop Time Status Last Admin Dose Admin Chlorhexidine Gluconate (Natalie-Hex 2%) 1 applic DAILY TOPIC 11/25/16 14:00 12/25/16 13:59 11/27/16 10:14 Clonidine HCl (Catapres) 0.1 mg Q4H PRN ORAL For High Blood Pressure 11/25/16 17:00 12/25/16 16:59 Diphenhydramine HCl (Benadryl) 50 mg Q4H PRN IVP Itching 11/25/16 17:00 12/25/16 16:59 11/27/16 15:56 Hydromorphone HCl (Dilaudid) 4 mg Q3H PRN IVP For Severe Pain 11/26/16 18:00 12/03/16 17:59 11/27/16 15:56 Lorazepam (Ativan 2mg/ml 1ml) 1 mg Q4H PRN IV For Anxiety 11/25/16 16:45 12/02/16 16:44 11/27/16 13:45 Metoprolol Succinate (Toprol XL) 50 mg Q12HR ORAL 11/26/16 09:00 12/26/16 08:59 11/26/16 22:03 Ondansetron HCl (Zofran) 4 mg Q4H PRN IVP Nausea & Vomiting 11/24/16 23:45 12/24/16 23:44 Oxycodone HCl (OxyCONTIN) 40 mg Q8HR@0200,1000,1800 ORAL 11/25/16 19:00 12/02/16 18:59 11/27/16 10:14 Salmeterol Xinafoate/ Fluticasone 1 puffs 1 puffs BID INH 11/25/16 09:00 12/25/16 08:59 11/27/16 08:33 Sodium Chloride (Sodium Chloride 1000ml bag) 1,000 ml @ 75 mls/hr [id number] IV 11/25/16 00:30 12/25/16 00:29 11/27/16 05:52 Warfarin Sodium (Coumadin per pharmacy) 1 ea DAILY PRN MISC Per rx protocol 11/24/16 23:45 12/24/16 23:44 JESSI MIRELES 10, 2017 17:59
[2016-11-27 20:00] VITALS: BP 127/71
[2016-11-27] MEDS: Augmentin 875mg Tab ORAL SCH (20:30)
--- NOTE | 2016-11-27 20:56 | Consultation ---
Consult Note Consult Note HEMATOLOGY CONSLT DOS 11/26/16 [id number] : [facility]: SICKLE CELL EVAL ID: The patient is a 41-year-old female with history of sickle cell disease, who presents with chief complaint of generalized pain has in the past seen Dr. Christine as well as Dr. Miramontes and has had mltiple crisis in the past, at this time, is presented with acute crisis, retic count is elevated. As an outpatient is medication noncompliant. The patient has a history of sickle cell disease. The patient apparently was seen at [facility] one day prior to admission. Has received transfusion. The patient presented to [facility] on 11/24/2016. The patient is complaining of generalized pain. The patient was admitted for sickle cell crisis. PAST MEDICAL HISTORY: 1. Sickle cell disease. 2. History of sickle cell anemia. 3. Asthma. 4. Hypertension. 5. Deep venous thrombosis in the left upper arm. 6. Deep venous thrombosis of the left lower extremity. 7. History of pulmonary embolism. PAST SURGICAL HISTORY: 1. Cholecystectomy. 2. Appendectomy. 3. Tonsillectomy. 4. Adenoidectomy. 5. section x3. 6. Multiple Port-A-Cath placements. Meds: 1. Advair 100/50 mg one puff p.o. twice daily. 2. Dilaudid 4 mg one tablet p.o. q.4 hours p.r.n. mild pain and two tablets p.o. q.4 hours p.r.n. severe pain. 3. Toprol-XL 25 mg one tablet p.o. daily. 4. OxyContin 80 mg one tablet p.o. twice daily. 5. Coumadin 7.5 mg one tablet p.o. daily. 6. Ambien 5 mg one tablet p.o. q.h.s. ALL: Haldol. The patient has an allergy listed to morphine, however, she denies being allergic to morphine. SOCIAL HISTORY: The patient lives with her adult brother. The patient has several children living with her as well. The patient admits to tobacco use one pack per day. The patient denies alcohol use. REVIEW OF SYSTEMS: Constitutional: The patient denies weight loss or gain. The patient denies fever or chills. HEENT: The patient denies ear or throat pain. The patient denies headache. Cardiovascular: The patient denies palpitations or chest pain. Chest: The patient denies wheeze or shortness of breath. Abdomen: The patient denies nausea, vomiting, diarrhea, or constipation. Genitourinary: The patient denies dysuria or increased frequency of urination. Neuromuscular: The patient complains of generalized pain. PHYSICAL EXAMINATION: VITAL SIGNS: reviewed and is stable GENERAL: The patient is well-developed, well-nourished HEENT: Eyes, pupils are equal NECK: Supple without lymphadenopathy. CHEST: Lungs are clear to auscultation bilaterally CARDIOVASCULAR: Regular rhythm and rate. ABDOMEN: Soft, nontender, and nondistended. + BS EXTREMITIES: Negative for clubbing, cyanosis, or edema. NEUROLOGIC: Cranial nerves II through XIIintact LABORATORY STUDIES: Laboratory Tests Test 11/27/16 06:00 11/27/16 06:30 White Blood Count 13.2 K/UL (4.8-10.8) H Red Blood Count 2.03 M/UL (4.20-5.40) L Hemoglobin 6.2 G/DL (12.0-16.0) *L Hematocrit 19.3 % (37.0-47.0) L Mean Corpuscular Volume 95 FL (80-99) Mean Corpuscular Hemoglobin 30.5 PG (27.0-31.0) Mean Corpuscular Hemoglobin Concent 32.1 G/DL (32.0-36.0) Red Cell Distribution Width 21.6 % (11.6-14.8) H Platelet Count 104 K/UL (150-450) L Mean Platelet Volume 9.8 FL (6.5-10.1) Neutrophils (%) (Auto) % (45.0-75.0) Lymphocytes (%) (Auto) % (20.0-45.0) Monocytes (%) (Auto) % (1.0-10.0) Eosinophils (%) (Auto) % (0.0-3.0) Basophils (%) (Auto) % (0.0-2.0) Differential Total Cells Counted 100 Neutrophils % (Manual) 25 % (45-75) L Lymphocytes % (Manual) 60 % (20-45) H Monocytes % (Manual) 8 % (1-10) Eosinophils % (Manual) 7 % (0-3) H Basophils % (Manual) 0 % (0-2) Band Neutrophils 0 % (0-8) Platelet Estimate Decreased L Platelet Morphology Normal Giant Platelets Occasional Hypochromasia 2+ Anisocytosis 2+ Sickle Cells Occasional H Target Cells 1+ Prothrombin Time 13.2 SEC (9.30-11.50) H Prothromb Time International Ratio 1.3 (0.9-1.1) H Sodium Level 141 mEQ/L (135-145) Potassium Level 4.2 mEQ/L (3.4-4.9) Chloride Level 102 mEQ/L (98-107) Carbon Dioxide Level 28 mEQ/L (20-30) Anion Gap 11 (5-15) Blood Urea Nitrogen 15 mg/dL (7-23) Creatinine 0.7 mg/dL (0.5-0.9) Estimat Glomerular Filtration Rate > 60 mL/min (>60) Glucose Level 92 mg/dL (74-106) Calcium Level 9.5 mg/dL (8.6-10.2) Phosphorus Level 4.3 mg/dL (2.5-4.8) Magnesium Level 1.7 mg/dL (1.7-2.5) Total Bilirubin 2.2 mg/dL (0.0-1.2) H Direct Bilirubin 0.8 mg/dL (0.1-0.3) H Aspartate Amino Transf (AST/SGOT) 32 U/L (5-40) Alanine Aminotransferase (ALT/SGPT) 11 U/L (3-33) Alkaline Phosphatase 150 U/L (35-104) H Lactate Dehydrogenase Pending Total Protein 7.1 g/dL (6.6-8.7) Albumin 3.4 g/dL (3.5-5.2) L Globulin 3.7 g/dL Albumin/Globulin Ratio 0.9 (1.0-2.7) L Hemoglobin A Pending Hemoglobin A2 Pending Hemoglobin C Pending Hemoglobin F () Pending Hemoglobin S Pending Variant Hemoglobin Pending Hemoglobin Electrophoresis Interp Pending Hemoglobin Interpretation Pending Hemoglobin Solubility Pending ASSESSMENTRECS: # Sickle cell crisis - have reviewed hgb electrophoresis from before and does in fact have sickle cell, has been noncompliant with medications, at this time presents with a crisis, retic elevated as is the unconjugated bilirubin, has been started on NS, pain meds, continue check retic daily. Pain meds until crisis improves ---> hgb goal is >7 or if patient is symptomatic ---> hydroxyrea as outpatient to continue ---> outpatient heme followup # Sickle cell anemia. # Leukocytosis secondary to inflammatory process # Coaglopathy 2/2 coumadin # Hypertension. # Asthma. Leroy Anderson. Nov 27, 2016 20:56
--- NOTE | 2016-11-27 22:48 | Pulmonology Progress Note ---
Assessment/Plan Problems: (1) Sickle cell crisis (2) Anemia (3) intractable pain Assessment/Plan increase dilaudid fto 4 mag IV q 2 hours check LDH iv fluids prbc when available Subjective ROS Limited/Unobtainable: No Allergies: Coded Allergies: MORPHINE (Verified Allergy, Mild, HALLUCINATIONS AND HIVES, 04/09/10) HALOPERIDOL (Verified Allergy, Unknown, 11/24/16) Objective Last 24 Hour Vital Signs Date Time Temp Pulse Resp B/P Pulse Ox O2 Delivery O2 Flow Rate FiO2 11/27/16 20:29 90 122/72 11/27/16 20:09 83 18 97 Room Air 21 11/27/16 20:09 83 18 97 Room Air 21 11/27/16 20:00 98.8 85 20 127/71 97 Room Air 11/27/16 15:23 98.1 84 18 120/67 95 Room Air 11/27/16 12:01 98.1 79 19 124/63 90 Room Air 11/27/16 09:00 76 110/72 11/27/16 08:45 80 18 95 Room Air 21 11/27/16 08:45 80 18 95 Room Air 21 11/27/16 08:29 98.2 79 18 114/83 92 Room Air 11/27/16 04:00 98.6 81 18 121/75 91 Room Air 11/27/16 00:00 97.8 76 20 126/76 91 Room Air Intake and Output 11/26/16 11/27/16 19:00 07:00 Intake Total 1300 ml 825 ml Balance 1300 ml 825 ml Intake Oral 400 ml IV Total 900 ml 825 ml # Voids 5 2 General Appearance: WD/WN HEENT: normocephalic Respiratory/Chest: chest wall non-tender, lungs clear Cardiovascular: normal peripheral pulses Abdomen: normal bowel sounds Genitourinary: normal external genitalia Extremities: no cyanosis Laboratory Tests 11/27/16 06:00: White Blood Count 13.2H, Red Blood Count 2.03L, Hemoglobin 6.2*L, Hematocrit 19.3L, Mean Corpuscular Volume 95, Mean Corpuscular Hemoglobin 30.5, Mean Corpuscular Hemoglobin Concent 32.1, Red Cell Distribution Width 21.6H, Platelet Count 104L, Mean Platelet Volume 9.8, Neutrophils (%) (Auto) , Lymphocytes (%) (Auto) , Monocytes (%) (Auto) , Eosinophils (%) (Auto) , Basophils (%) (Auto) , Differential Total Cells Counted 100, Neutrophils % ( Manual) 25L, Lymphocytes % (Manual) 60H, Monocytes % (Manual) 8, Eosinophils % ( Manual) 7H, Basophils % (Manual) 0, Band Neutrophils 0, Platelet Estimate DecreasedL, Platelet Morphology Normal, Giant Platelets Occasional, Hypochromasia 2+, Anisocytosis 2+, Sickle Cells OccasionalH, Target Cells 1+, Prothrombin Time 13.2H, Prothromb Time International Ratio 1.3H, Sodium Level 141, Potassium Level 4.2, Chloride Level 102, Carbon Dioxide Level 28, Anion Gap 11, Blood Urea Nitrogen 15, Creatinine 0.7, Estimat Glomerular Filtration Rate > 60, Glucose Level 92, Calcium Level 9.5, Phosphorus Level 4.3, Magnesium Level 1.7, Total Bilirubin 2.2H, Direct Bilirubin 0.8H, Aspartate Amino Transf ( AST/SGOT) 32, Alanine Aminotransferase (ALT/SGPT) 11, Alkaline Phosphatase 150H , Lactate Dehydrogenase [Pending], Total Protein 7.1, Albumin 3.4L, Globulin 3.7 , Albumin/Globulin Ratio 0.9L 11/27/16 06:30: Hemoglobin A [Pending], Hemoglobin A2 [Pending], Hemoglobin C [Pending], Hemoglobin F () [Pending], Hemoglobin S [Pending], Variant Hemoglobin [ Pending], Hemoglobin Electrophoresis Interp [Pending], Hemoglobin Interpretation [Pending], Hemoglobin Solubility [Pending] 11/27/16 12:00: Soluble Transferrin Receptor [Pending] Current Medications Medications (Trade) Dose Ordered Sig/Dixie Route PRN Reason Start Time Stop Time Status Last Admin Dose Admin Amoxicillin/ Clavulanate Potassium 875 mg 875 mg EVERY 12 HOURS ORAL 11/27/16 21:00 12/04/16 20:59 11/27/16 20:30 Chlorhexidine Gluconate (Natalie-Hex 2%) 1 applic DAILY TOPIC 11/25/16 14:00 12/25/16 13:59 11/27/16 10:14 Clonidine HCl (Catapres) 0.1 mg Q4H PRN ORAL For High Blood Pressure 11/25/16 17:00 12/25/16 16:59 Diphenhydramine HCl (Benadryl) 50 mg Q4H PRN IVP Itching 11/25/16 17:00 12/25/16 16:59 11/27/16 20:02 Hydromorphone HCl (Dilaudid) 4 mg Q3H PRN IVP For Severe Pain 11/26/16 18:00 12/03/16 17:59 11/27/16 20:03 Lorazepam (Ativan 2mg/ml 1ml) 1 mg Q4H PRN IV For Anxiety 11/25/16 16:45 12/02/16 16:44 11/27/16 18:23 Metoprolol Succinate (Toprol XL) 50 mg Q12HR ORAL 11/26/16 09:00 12/26/16 08:59 11/27/16 20:29 Ondansetron HCl (Zofran) 4 mg Q4H PRN IVP Nausea & Vomiting 11/24/16 23:45 12/24/16 23:44 Oxycodone HCl (OxyCONTIN) 40 mg Q8HR@0200,1000,1800 ORAL 11/25/16 19:00 12/02/16 18:59 11/27/16 18:23 Salmeterol Xinafoate/ Fluticasone (Advair 250/50 Diskus) 1 puffs BID INH 11/25/16 09:00 12/25/16 08:59 11/27/16 20:09 Sodium Chloride (Sodium Chloride 1000ml bag) 1,000 ml @ 100 mls/hr Q10H IV 11/28/16 00:30 01/12/17 00:29 11/27/16 22:03 Warfarin Sodium (Coumadin per pharmacy) 1 ea DAILY PRN MISC Per rx protocol 11/24/16 23:45 12/24/16 23:44 ISIAH ANTOINE Nov 27, 2016 22:48
[2016-11-28] VITALS: BP 108/56
[2016-11-28] MEDS: DiphenhydrAMINE 50mg/ml Inj IVP PRN ×6 (00:03→20:29)
--- NOTE | 2016-11-28 01:45 | Progress Note ---
DATE: 11/27/2016 HEMATOLOGY/ONCOLOGY PROGRESS NOTE SUBJECTIVE: The patient in the room. Calm. Afebrile. No distress. Comfortable. PHYSICAL EXAMINATION: VITAL SIGNS: T-max is 97. Respiratory rate is 20. Pulse is 80. Blood pressure 130/80. HEENT: Head, normocephalic and atraumatic. NECK: Supple. No thyroid enlargement. No lymphadenopathy. LUNGS: Decreased breath sounds bilaterally with a few rhonchi in the base. HEART: S1 and S2 regular. ABDOMEN: Benign. No organomegaly present. Bowel sounds present. EXTREMITIES: No cyanosis, clubbing, or edema. LABORATORY DATA: WBC 13.2, hemoglobin 6.2, hematocrit 19.3, and platelets 103,000. INR is 1.3. Chemistry shows creatinine 0.7. Ferritin is 1141. IMPRESSION: 1. Sickle cell anemia. 2. Sickle cell crisis. 3. Asthma. 4. Chronic obstructive pulmonary disease. 5. Hypertension. 6. Deep venous thrombosis, left upper extremity. 7. Deep venous thrombosis, left lower extremity. 8. History of pulmonary emboli. 9. Anticoagulation, on Coumadin. 10. Hypertension. 11. Generalized pain. 12. Failure to thrive. RECOMMENDATION: 1. Watch count. 2. Watch coagulopathy. 3. PRBC transfusion as needed basis. 4. Coumadin p.o. 5. Target INR between 2.0 and 3.0. 6. Pain control. 7. Antiemetic. 8. Skin care. 9. Nutrition. 10. Close followup. Keny Anderson MD DR: SAUL JOB#: [id number] CC:
[2016-11-28] MEDS: oxyCONTIN 20mg tab ORAL SCH ×3 (02:00→18:08)
[2016-11-28 04:00] VITALS: BP 125/68
[2016-11-28] MEDS: Dyna-Hex 2% Top Sol 8oz TOPIC SCH (08:07)
[2016-11-28] MEDS: Augmentin 875mg Tab ORAL SCH ×2 (08:07→20:29)
[2016-11-28 08:08] VITALS: BP 120/62
[2016-11-28] MEDS: Advair 250/50 Inhaler - 14 dose INH SCH ×2 (09:00→21:30)
[2016-11-28 09:35] LABS: MEAN CORPUSCULAR HEMOGLOBIN 29.2 PG (27.0-31.0); MEAN CORPUSCULAR VOLUME 94 FL (80-99); PLATELET COUNT 116 K/UL (150-450); RED CELL DISTRIBUTION WIDTH 21.4 % (11.6-14.8); WHITE BLOOD COUNT 9.3 K/UL (4.8-10.8)
[2016-11-28 09:44] LABS: ANION GAP 14 (5-15); CALCIUM 9.4 mg/dL (8.6-10.2); CARBON DIOXIDE 28 mEQ/L (20-30); CHLORIDE 98 mEQ/L (98-107); CREATININE 0.8 mg/dL (0.5-0.9); GLOMERULAR FILTRATION RATE > 60 mL/min (>60); HEMOLYSIS 7; POTASSIUM 4.5 mEQ/L (3.4-4.9); SODIUM 140 mEQ/L (135-145)
[2016-11-28 09:47] LABS: INR 1.2 (0.9-1.1); PROTHROMBIN TIME 12.7 SEC (9.30-11.50)
[2016-11-28 10:25] LABS: BAND NEUTROPHILS % (MANUAL) 1 % (0-8); EOSINOPHILS % (MANUAL) 19 % (0-3); LYMPHOCYTES % (MANUAL) 41 % (20-45); NEUTROPHILS % (MANUAL) 32 % (45-75); NUCLEATED RED BLOOD CELLS 1 /100 WBC; TOTAL CELLS COUNTED 100
[2016-11-28 10:26] LABS: ANISOCYTOSIS 2+; BASOPHILS % (MANUAL) 0 % (0-2); HYPOCHROMASIA 1+; PLATELET ESTIMATE DECREASED; PLATELET MORPHOLOGY NORMAL; SICKLE CELLS 2+; TARGET CELLS 1+
[2016-11-28 10:28] LABS: POLYCHROMASIA 2+
[2016-11-28] MEDS: Miralax 17gm pkt ORAL SCH (10:55)
[2016-11-28 12:00] VITALS: BP 132/80
--- NOTE | 2016-11-28 15:45 | General Progress Note ---
Assessment/Plan Assessment/Plan (1) Sickle Cell Disease (2) Sickle Cell Crisis (3) Intractable pain The patient will be continued on OxyContin and Dilaudid. The patient was discussed with Dr. Nuno and Dr. Nuno concurred. Subjective Date patient seen: Nov 28, 2016 Time patient seen: 01:00 - pm Allergies: Coded Allergies: MORPHINE (Verified Allergy, Mild, HALLUCINATIONS AND HIVES, 04/09/10) HALOPERIDOL (Verified Allergy, Unknown, 11/24/16) Subjective REVIEW OF SYSTEMS: Denies rash, fever, chills, sweating, dizziness, drowsiness, blurred vision, sore throat, or change in her weight. No shortness of breath or chest pain. No nausea, vomiting, or blood in the stool or urine. No bowel or bladder incontinence. No dysuria. She is complaining of generalized body pain. SUBJECTIVE: Pt is in bed in no acute distress or signs of pain Pain is reduced on the current medication regimen. Dilaudid was changed from 2mg Q2H to 4mg Q3H as needed for pain. Objective Last 24 Hour Vital Signs Date Time Temp Pulse Resp B/P Pulse Ox O2 Delivery O2 Flow Rate FiO2 11/28/16 12:29 98.2 11/28/16 12:00 98.2 88 18 132/80 98 Room Air 11/28/16 11:30 98.2 11/28/16 11:00 98.2 11/28/16 09:59 Room Air 11/28/16 09:59 Room Air 11/28/16 09:50 100.6 11/28/16 08:08 99.7 91 18 120/62 98 Room Air 11/28/16 08:07 91 120/62 11/28/16 04:00 98.6 88 20 125/68 98 Room Air 11/28/16 00:00 98.1 83 20 108/56 92 Room Air 11/27/16 20:29 90 122/72 11/27/16 20:09 83 18 97 Room Air 21 11/27/16 20:09 83 18 97 Room Air 21 11/27/16 20:00 98.8 85 20 127/71 97 Room Air Intake and Output 11/27/16 11/28/16 19:00 07:00 Intake Total 1740 ml 1260 ml Balance 1740 ml 1260 ml Intake Oral 840 ml 360 ml IV Total 900 ml 900 ml # Voids 4 Laboratory Tests 11/28/16 05:40: White Blood Count 9.3, Red Blood Count 2.00L, Hemoglobin 5.8*L, Hematocrit 18.8L , Mean Corpuscular Volume 94, Mean Corpuscular Hemoglobin 29.2, Mean Corpuscular Hemoglobin Concent 31.0L, Red Cell Distribution Width 21.4H, Platelet Count 116L, Mean Platelet Volume 10.0, Neutrophils (%) (Auto) , Lymphocytes (%) (Auto) , Monocytes (%) (Auto) , Eosinophils (%) (Auto) , Basophils (%) (Auto) , Differential Total Cells Counted 100, Neutrophils % ( Manual) 32L, Lymphocytes % (Manual) 41, Monocytes % (Manual) 7, Eosinophils % ( Manual) 19H, Basophils % (Manual) 0, Band Neutrophils 1, Nucleated Red Blood Cells 1, Platelet Estimate DecreasedL, Platelet Morphology Normal, Polychromasia 2+, Hypochromasia 1+, Anisocytosis 2+, Sickle Cells 2+H, Target Cells 1+, Prothrombin Time 12.7H, Prothromb Time International Ratio 1.2H, Sodium Level 140, Potassium Level 4.5, Chloride Level 98, Carbon Dioxide Level 28, Anion Gap 14, Blood Urea Nitrogen 15, Creatinine 0.8, Estimat Glomerular Filtration Rate > 60, Glucose Level 74, Calcium Level 9.4 Height (Feet): 5 Height (Inches): 4.00 Weight (Pounds): 137 Objective GENERAL: Alert, awake, and oriented. HEENT: PERRLA. NECK: Range of motion is full in all directions. No tenderness to paracervical muscles. No adenopathy. LUNGS: Decreased breath sounds bilaterally. HEART: S1 and S2 regular. ABDOMEN: Benign. EXTREMITIES: No cyanosis. No clubbing. NEURO: No changes. JEFFY CAMPA Nov 28, 2016 15:45
[2016-11-28 16:00] VITALS: BP 120/78
[2016-11-28] MEDS ORDERED: Warfarin Sodium 10mg ORAL ONE (17:00)
--- NOTE | 2016-11-28 17:56 | Internal Med Progress Note ---
Subjective Date of Service: Nov 28, 2016 Physician Name Casie Posada Attending Physician Gurmeet Sears MD Current Medications Medications (Trade) Dose Ordered Sig/Dixie Route PRN Reason Start Time Stop Time Status Last Admin Dose Admin Acetaminophen (Tylenol) 650 mg Q4H PRN ORAL Mild Pain/Temp > 100.5 11/28/16 10:30 12/28/16 10:29 11/28/16 10:31 Amoxicillin/ Clavulanate Potassium 875 mg 875 mg EVERY 12 HOURS ORAL 11/27/16 21:00 12/04/16 20:59 11/28/16 08:07 Chlorhexidine Gluconate (Natalie-Hex 2%) 1 applic DAILY TOPIC 11/25/16 14:00 12/25/16 13:59 11/28/16 08:07 Clonidine HCl (Catapres) 0.1 mg Q4H PRN ORAL For High Blood Pressure 11/25/16 17:00 12/25/16 16:59 Diphenhydramine HCl (Benadryl) 50 mg Q4H PRN IVP Itching 11/25/16 17:00 12/25/16 16:59 11/28/16 16:29 Hydromorphone HCl (Dilaudid) 4 mg Q3H PRN IVP For Severe Pain 11/26/16 18:00 12/03/16 17:59 11/28/16 16:29 Lorazepam (Ativan 2mg/ml 1ml) 1 mg Q4H PRN IV For Anxiety 11/25/16 16:45 12/02/16 16:44 11/27/16 18:23 Metoprolol Succinate (Toprol XL) 50 mg Q12HR ORAL 11/26/16 09:00 12/26/16 08:59 11/28/16 08:07 Ondansetron HCl (Zofran) 4 mg Q4H PRN IVP Nausea & Vomiting 11/24/16 23:45 12/24/16 23:44 Oxycodone HCl (OxyCONTIN) 40 mg Q8HR@0200,1000,1800 ORAL 11/25/16 19:00 12/02/16 18:59 11/28/16 10:06 Polyethylene Glycol (Miralax) 17 gm DAILY ORAL 11/28/16 11:00 12/28/16 10:59 Salmeterol Xinafoate/ Fluticasone (Advair 250/50 Diskus) 1 puffs BID INH 11/25/16 09:00 12/25/16 08:59 11/27/16 20:09 Sodium Chloride (Sodium Chloride 1000ml bag) 1,000 ml @ 100 mls/hr Q10H IV 11/28/16 00:30 01/12/17 00:29 11/28/16 17:19 Warfarin Sodium (Coumadin per pharmacy) 1 ea DAILY PRN MISC Per rx protocol 11/24/16 23:45 12/24/16 23:44 Allergies: Coded Allergies: MORPHINE (Verified Allergy, Mild, HALLUCINATIONS AND HIVES, 04/09/10) HALOPERIDOL (Verified Allergy, Unknown, 11/24/16) ROS Limited/Unobtainable: No Constitutional: Reports: no symptoms HEENT: Reports: no symptoms Cardiovascular: Reports: no symptoms Respiratory: Reports: no symptoms Gastrointestinal/Abdominal: Reports: no symptoms Neurologic/Psychiatric: Reports: no symptoms Subjective 41 YO F admitted with sickle cell crisis and generalized pain. Cover for Int Med Dr Sears. Objective Last Vital Signs Date Time Temp Pulse Resp B/P Pulse Ox O2 Delivery O2 Flow Rate FiO2 11/28/16 16:59 98.2 11/28/16 16:00 81 18 120/78 98 Room Air 11/27/16 20:09 21 Laboratory Tests Test 11/28/16 05:40 White Blood Count 9.3 K/UL (4.8-10.8) Red Blood Count 2.00 M/UL (4.20-5.40) L Hemoglobin 5.8 G/DL (12.0-16.0) *L Hematocrit 18.8 % (37.0-47.0) L Mean Corpuscular Volume 94 FL (80-99) Mean Corpuscular Hemoglobin 29.2 PG (27.0-31.0) Mean Corpuscular Hemoglobin Concent 31.0 G/DL (32.0-36.0) L Red Cell Distribution Width 21.4 % (11.6-14.8) H Platelet Count 116 K/UL (150-450) L Mean Platelet Volume 10.0 FL (6.5-10.1) Neutrophils (%) (Auto) % (45.0-75.0) Lymphocytes (%) (Auto) % (20.0-45.0) Monocytes (%) (Auto) % (1.0-10.0) Eosinophils (%) (Auto) % (0.0-3.0) Basophils (%) (Auto) % (0.0-2.0) Differential Total Cells Counted 100 Neutrophils % (Manual) 32 % (45-75) L Lymphocytes % (Manual) 41 % (20-45) Monocytes % (Manual) 7 % (1-10) Eosinophils % (Manual) 19 % (0-3) H Basophils % (Manual) 0 % (0-2) Band Neutrophils 1 % (0-8) Nucleated Red Blood Cells 1 /100 WBC Platelet Estimate Decreased L Platelet Morphology Normal Polychromasia 2+ Hypochromasia 1+ Anisocytosis 2+ Sickle Cells 2+ H Target Cells 1+ Prothrombin Time 12.7 SEC (9.30-11.50) H Prothromb Time International Ratio 1.2 (0.9-1.1) H Sodium Level 140 mEQ/L (135-145) Potassium Level 4.5 mEQ/L (3.4-4.9) Chloride Level 98 mEQ/L (98-107) Carbon Dioxide Level 28 mEQ/L (20-30) Anion Gap 14 (5-15) Blood Urea Nitrogen 15 mg/dL (7-23) Creatinine 0.8 mg/dL (0.5-0.9) Estimat Glomerular Filtration Rate > 60 mL/min (>60) Glucose Level 74 mg/dL (74-106) Calcium Level 9.4 mg/dL (8.6-10.2) Intake and Output 11/27/16 11/28/16 19:00 07:00 Intake Total 1740 ml 1260 ml Balance 1740 ml 1260 ml Intake Oral 840 ml 360 ml IV Total 900 ml 900 ml # Voids 4 Objective General Appearance: WD/WN, no apparent distress, alert EENT: PERRL/EOMI, normal ENT inspection, TMs normal Neck: non-tender, normal alignment, supple, normal inspection Cardiovascular: normal peripheral pulses, normal rate, regular rhythm, no gallop/murmur, no JVD Respiratory/Chest: chest wall non-tender, lungs clear, normal breath sounds, no respiratory distress, no accessory muscle use Abdomen: normal bowel sounds, non tender, soft, no organomegaly, no mass Extremities: normal range of motion Edema: trace edema Neurologic: regulatory affairs director II-XII grossly normal, no motor/sensory deficits Skin: normal pigmentation, warm/dry Assessment/Plan Problem List: (1) Asthma (2) Opioid abuse (3) opiate dependent Assessment & Plan: Continue IV dilaudid and oral oxycontin per pain management (4) acute on chronic pain Assessment & Plan: See pain management note; follow recs. (5) Sickle cell crisis (6) H/O sickle cell anemia Assessment & Plan: See heme/onc eval (7) Hypertension Assessment & Plan: Cont metoprolol (8) Severe anemia Assessment & Plan: S/P transfusion 1 unit PRBC 10/28/16 Status: not improved CASIE POSADA Nov 28, 2016 17:56
--- NOTE | 2016-11-28 18:35 | Pulmonology Progress Note ---
Assessment/Plan Problems: (1) Sickle cell crisis (2) Anemia (3) intractable pain Assessment/Plan increase dilaudid fto 4 mag IV q 2 hours check LDH iv fluids prbc when available Subjective ROS Limited/Unobtainable: No Constitutional: Reports: no symptoms HEENT: Repors: no symptoms Respiratory: Reports: no symptoms Allergies: Coded Allergies: MORPHINE (Verified Allergy, Mild, HALLUCINATIONS AND HIVES, 04/09/10) HALOPERIDOL (Verified Allergy, Unknown, 11/24/16) Objective Last 24 Hour Vital Signs Date Time Temp Pulse Resp B/P Pulse Ox O2 Delivery O2 Flow Rate FiO2 11/28/16 16:59 98.2 11/28/16 16:00 98.2 81 18 120/78 98 Room Air 11/28/16 12:00 98.2 88 18 132/80 98 Room Air 11/28/16 11:30 98.2 11/28/16 11:00 98.2 11/28/16 09:59 Room Air 11/28/16 09:59 Room Air 11/28/16 09:50 100.6 11/28/16 08:08 99.7 91 18 120/62 98 Room Air 11/28/16 08:07 91 120/62 11/28/16 04:00 98.6 88 20 125/68 98 Room Air 11/28/16 00:00 98.1 83 20 108/56 92 Room Air 11/27/16 20:29 90 122/72 11/27/16 20:09 83 18 97 Room Air 21 11/27/16 20:09 83 18 97 Room Air 21 11/27/16 20:00 98.8 85 20 127/71 97 Room Air Intake and Output 11/27/16 11/28/16 19:00 07:00 Intake Total 1740 ml 1260 ml Balance 1740 ml 1260 ml Intake Oral 840 ml 360 ml IV Total 900 ml 900 ml # Voids 4 General Appearance: WD/WN HEENT: normocephalic, atraumatic Respiratory/Chest: chest wall non-tender, lungs clear Cardiovascular: normal peripheral pulses, normal rate, no JVD Abdomen: soft, non tender Genitourinary: normal external genitalia Laboratory Tests 11/28/16 05:40: White Blood Count 9.3, Red Blood Count 2.00L, Hemoglobin 5.8*L, Hematocrit 18.8L , Mean Corpuscular Volume 94, Mean Corpuscular Hemoglobin 29.2, Mean Corpuscular Hemoglobin Concent 31.0L, Red Cell Distribution Width 21.4H, Platelet Count 116L, Mean Platelet Volume 10.0, Neutrophils (%) (Auto) , Lymphocytes (%) (Auto) , Monocytes (%) (Auto) , Eosinophils (%) (Auto) , Basophils (%) (Auto) , Differential Total Cells Counted 100, Neutrophils % ( Manual) 32L, Lymphocytes % (Manual) 41, Monocytes % (Manual) 7, Eosinophils % ( Manual) 19H, Basophils % (Manual) 0, Band Neutrophils 1, Nucleated Red Blood Cells 1, Platelet Estimate DecreasedL, Platelet Morphology Normal, Polychromasia 2+, Hypochromasia 1+, Anisocytosis 2+, Sickle Cells 2+H, Target Cells 1+, Prothrombin Time 12.7H, Prothromb Time International Ratio 1.2H, Sodium Level 140, Potassium Level 4.5, Chloride Level 98, Carbon Dioxide Level 28, Anion Gap 14, Blood Urea Nitrogen 15, Creatinine 0.8, Estimat Glomerular Filtration Rate > 60, Glucose Level 74, Calcium Level 9.4 Current Medications Medications (Trade) Dose Ordered Sig/Dixie Route PRN Reason Start Time Stop Time Status Last Admin Dose Admin Acetaminophen (Tylenol) 650 mg Q4H PRN ORAL Mild Pain/Temp > 100.5 11/28/16 10:30 12/28/16 10:29 11/28/16 10:31 Amoxicillin/ Clavulanate Potassium 875 mg 875 mg EVERY 12 HOURS ORAL 11/27/16 21:00 12/04/16 20:59 11/28/16 08:07 Chlorhexidine Gluconate (Natalie-Hex 2%) 1 applic DAILY TOPIC 11/25/16 14:00 12/25/16 13:59 11/28/16 08:07 Clonidine HCl (Catapres) 0.1 mg Q4H PRN ORAL For High Blood Pressure 11/25/16 17:00 12/25/16 16:59 Diphenhydramine HCl (Benadryl) 50 mg Q4H PRN IVP Itching 11/25/16 17:00 12/25/16 16:59 11/28/16 16:29 Hydromorphone HCl (Dilaudid) 4 mg Q3H PRN IVP For Severe Pain 11/26/16 18:00 12/03/16 17:59 11/28/16 16:29 Lorazepam (Ativan 2mg/ml 1ml) 1 mg Q4H PRN IV For Anxiety 11/25/16 16:45 12/02/16 16:44 11/27/16 18:23 Metoprolol Succinate (Toprol XL) 50 mg Q12HR ORAL 11/26/16 09:00 12/26/16 08:59 11/28/16 08:07 Ondansetron HCl (Zofran) 4 mg Q4H PRN IVP Nausea & Vomiting 11/24/16 23:45 12/24/16 23:44 Oxycodone HCl (OxyCONTIN) 40 mg Q8HR@0200,1000,1800 ORAL 11/25/16 19:00 12/02/16 18:59 11/28/16 18:08 Polyethylene Glycol (Miralax) 17 gm DAILY ORAL 11/28/16 11:00 12/28/16 10:59 Salmeterol Xinafoate/ Fluticasone (Advair 250/50 Diskus) 1 puffs BID INH 11/25/16 09:00 12/25/16 08:59 11/27/16 20:09 Sodium Chloride (Sodium Chloride 1000ml bag) 1,000 ml @ 100 mls/hr Q10H IV 11/28/16 00:30 01/12/17 00:29 11/28/16 17:19 Warfarin Sodium (Coumadin per pharmacy) 1 ea DAILY PRN MISC Per rx protocol 11/24/16 23:45 12/24/16 23:44 ISIAH ANTOINE Nov 28, 2016 18:35
[2016-11-28] MEDS ORDERED: NS 275ml ONE (18:43)
[2016-11-28] MEDS ORDERED: Tubing Blood Filter IV ONE (18:43)
[2016-11-28 20:00] VITALS: BP 128/78
--- NOTE | 2016-11-28 22:30 | Cardiology Report ---
APPROVED REPORT EKG Measurement Heart [id number] Normal sinus rhythm Normal ECG
--- NOTE | 2016-11-28 23:35 | General Progress Note ---
Assessment/Plan Assessment/Plan ASSESSMENTRECS: # Sickle cell crisis - have reviewed hgb electrophoresis from before and does in fact have sickle cell, has been noncompliant with medications, at this time presents with a crisis, retic elevated as is the unconjugated bilirubin, has been started on NS, pain meds, continue check retic daily. Pain meds until crisis improves ---> hgb goal is >7 or if patient is symptomatic ---> hydroxyrea as outpatient to continue ---> outpatient heme followup # Sickle cell anemia. # Leukocytosis secondary to inflammatory process # Coaglopathy 2/2 coumadin # Hypertension. # Asthma. Subjective Constitutional: Reports: no symptoms HEENT: Reports: no symptoms Cardiovascular: Reports: no symptoms Respiratory: Reports: no symptoms Gastrointestinal/Abdominal: Reports: poor appetite Genitourinary: Reports: no symptoms Neurologic/Psychiatric: Reports: no symptoms Endocrine: Reports: no symptoms Hematologic/Lymphatic: Reports: anemia Allergies: Coded Allergies: MORPHINE (Verified Allergy, Mild, HALLUCINATIONS AND HIVES, 04/09/10) HALOPERIDOL (Verified Allergy, Unknown, 11/24/16) Subjective hgb lower Objective Last 24 Hour Vital Signs Date Time Temp Pulse Resp B/P Pulse Ox O2 Delivery O2 Flow Rate FiO2 11/28/16 21:31 80 16 96 Room Air 11/28/16 21:31 79 16 96 Room Air 11/28/16 20:29 85 128/78 11/28/16 20:00 98.6 83 20 128/78 91 Room Air 11/28/16 16:59 98.2 11/28/16 16:00 98.2 81 18 120/78 98 Room Air 11/28/16 12:00 98.2 88 18 132/80 98 Room Air 11/28/16 11:30 98.2 11/28/16 11:00 98.2 11/28/16 09:59 Room Air 11/28/16 09:59 Room Air 11/28/16 09:50 100.6 11/28/16 08:08 99.7 91 18 120/62 98 Room Air 11/28/16 08:07 91 120/62 11/28/16 04:00 98.6 88 20 125/68 98 Room Air 11/28/16 00:00 98.1 83 20 108/56 92 Room Air Intake and Output 11/27/16 11/28/16 19:00 07:00 Intake Total 1740 ml 1260 ml Balance 1740 ml 1260 ml Intake Oral 840 ml 360 ml IV Total 900 ml 900 ml # Voids 4 Laboratory Tests 11/28/16 05:40: White Blood Count 9.3, Red Blood Count 2.00L, Hemoglobin 5.8*L, Hematocrit 18.8L , Mean Corpuscular Volume 94, Mean Corpuscular Hemoglobin 29.2, Mean Corpuscular Hemoglobin Concent 31.0L, Red Cell Distribution Width 21.4H, Platelet Count 116L, Mean Platelet Volume 10.0, Neutrophils (%) (Auto) , Lymphocytes (%) (Auto) , Monocytes (%) (Auto) , Eosinophils (%) (Auto) , Basophils (%) (Auto) , Differential Total Cells Counted 100, Neutrophils % ( Manual) 32L, Lymphocytes % (Manual) 41, Monocytes % (Manual) 7, Eosinophils % ( Manual) 19H, Basophils % (Manual) 0, Band Neutrophils 1, Nucleated Red Blood Cells 1, Platelet Estimate DecreasedL, Platelet Morphology Normal, Polychromasia 2+, Hypochromasia 1+, Anisocytosis 2+, Sickle Cells 2+H, Target Cells 1+, Prothrombin Time 12.7H, Prothromb Time International Ratio 1.2H, Sodium Level 140, Potassium Level 4.5, Chloride Level 98, Carbon Dioxide Level 28, Anion Gap 14, Blood Urea Nitrogen 15, Creatinine 0.8, Estimat Glomerular Filtration Rate > 60, Glucose Level 74, Calcium Level 9.4 Height (Feet): 5 Height (Inches): 4.00 Weight (Pounds): 137 General Appearance: lethargic EENT: normal ENT inspection Neck: supple Cardiovascular: regular rhythm Respiratory/Chest: lungs clear Abdomen: no mass Genitourinary/Rectal: heme negative stool Extremities: non-tender Edema: no edema noted Leg (L), no edema noted Leg (R) Neurologic: alert Leroy Anderson Nov 28, 2016 23:35
[2016-11-29] VITALS: BP 127/78
[2016-11-29] MEDS: DiphenhydrAMINE 50mg/ml Inj IVP PRN ×6 (00:32→20:48)
[2016-11-29] MEDS: oxyCONTIN 20mg tab ORAL SCH ×3 (02:07→18:08)
[2016-11-29 04:00] VITALS: BP 122/70
[2016-11-29 07:05] LABS: INR 1.4 (0.9-1.1); PROTHROMBIN TIME 14.7 SEC (9.30-11.50)
[2016-11-29 07:14] LABS: ANION GAP 14 (5-15); CALCIUM 9.7 mg/dL (8.6-10.2); CARBON DIOXIDE 25 mEQ/L (20-30); CHLORIDE 97 mEQ/L (98-107); CREATININE 0.6 mg/dL (0.5-0.9); GLOMERULAR FILTRATION RATE > 60 mL/min (>60); HEMOLYSIS 5; POTASSIUM 4.6 mEQ/L (3.4-4.9); SODIUM 136 mEQ/L (135-145)
[2016-11-29 07:53] LABS: MEAN CORPUSCULAR HEMOGLOBIN 30.4 PG (27.0-31.0); MEAN CORPUSCULAR HGB CONC 32.6 G/DL (32.0-36.0); MEAN CORPUSCULAR VOLUME 93 FL (80-99); MEAN PLATELET VOLUME 11.2 FL (6.5-10.1); PLATELET COUNT 117 K/UL (150-450); RED BLOOD COUNT 2.29 M/UL (4.20-5.40); RED CELL DISTRIBUTION WIDTH 21.6 % (11.6-14.8); WHITE BLOOD COUNT 9.7 K/UL (4.8-10.8)
[2016-11-29 08:16] VITALS: BP 109/64
[2016-11-29] MEDS: Dyna-Hex 2% Top Sol 8oz TOPIC SCH (08:32)
--- NOTE | 2016-11-29 08:32 | Infectious Diseases Prog Note ---
Assessment/Plan Assessment/Plan ASSESSMENT: 41 y/o female with: // Probable bronchitis - cough yellow sputum - CXR: No acute process // Periodontal disease // Leukocytosis - SP - no evidence of UTI or PNA // Sickle cell crisis // Sickle cell anemia // Thrombocytopenia // Elevated ESR, CRP // h/o DVT / PE, on coumadin - doppler(-) DVT // Tobacco abuse // Medical noncompliance, h/o AMA // Negative MRSA, VRE screens // No ABX allergies // Full Code PLAN: - start augmentin d# dental, add Zithromax d# for pulmonary coverage - transfuse prn - monitor CBC, temperatures Subjective Constitutional: Denies: anorexia, chills, drenching sweats, fatigue, fever, no symptoms, other Allergies: Coded Allergies: MORPHINE (Verified Allergy, Mild, HALLUCINATIONS AND HIVES, 04/09/10) HALOPERIDOL (Verified Allergy, Unknown, 11/24/16) Objective Vital Signs Last 24 Hour Vital Signs Date Time Temp Pulse Resp B/P Pulse Ox O2 Delivery O2 Flow Rate FiO2 11/29/16 08:16 97.0 64 19 109/64 97 Room Air 11/29/16 04:00 97.7 67 18 122/70 95 Room Air 11/29/16 00:00 97.0 75 20 127/78 92 Room Air 11/28/16 21:31 80 16 96 Room Air 11/28/16 21:31 79 16 96 Room Air 11/28/16 20:29 85 128/78 11/28/16 20:00 98.6 83 20 128/78 91 Room Air 11/28/16 16:59 98.2 11/28/16 16:00 98.2 81 18 120/78 98 Room Air 11/28/16 12:00 98.2 88 18 132/80 98 Room Air 11/28/16 11:30 98.2 11/28/16 11:00 98.2 11/28/16 09:59 Room Air 11/28/16 09:59 Room Air 11/28/16 09:50 100.6 Height (Feet): 5 Height (Inches): 4.00 Weight (Pounds): 137 HEENT: atraumatic Respiratory/Chest: lungs clear Cardiovascular: normal peripheral pulses Abdomen: no organomegaly Laboratory Tests Test 11/29/16 06:00 White Blood Count 9.7 K/UL (4.8-10.8) Red Blood Count 2.29 M/UL (4.20-5.40) L Hemoglobin 7.0 G/DL (12.0-16.0) L Hematocrit 21.4 % (37.0-47.0) L Mean Corpuscular Volume 93 FL (80-99) Mean Corpuscular Hemoglobin 30.4 PG (27.0-31.0) Mean Corpuscular Hemoglobin Concent 32.6 G/DL (32.0-36.0) Red Cell Distribution Width 21.6 % (11.6-14.8) H Platelet Count 117 K/UL (150-450) L Mean Platelet Volume 11.2 FL (6.5-10.1) H Neutrophils (%) (Auto) % (45.0-75.0) Lymphocytes (%) (Auto) % (20.0-45.0) Monocytes (%) (Auto) % (1.0-10.0) Eosinophils (%) (Auto) % (0.0-3.0) Basophils (%) (Auto) % (0.0-2.0) Neutrophils % (Manual) Pending Lymphocytes % (Manual) Pending Platelet Estimate Pending Platelet Morphology Pending Reticulocyte Count Pending Prothrombin Time 14.7 SEC (9.30-11.50) H Prothromb Time International Ratio 1.4 (0.9-1.1) H Sodium Level 136 mEQ/L (135-145) Potassium Level 4.6 mEQ/L (3.4-4.9) Chloride Level 97 mEQ/L (98-107) L Carbon Dioxide Level 25 mEQ/L (20-30) Anion Gap 14 (5-15) Blood Urea Nitrogen 13 mg/dL (7-23) Creatinine 0.6 mg/dL (0.5-0.9) Estimat Glomerular Filtration Rate > 60 mL/min (>60) Glucose Level 88 mg/dL (74-106) Calcium Level 9.7 mg/dL (8.6-10.2) Lactate Dehydrogenase Pending Current Medications Medications (Trade) Dose Ordered Sig/Dixie Route PRN Reason Start Time Stop Time Status Last Admin Dose Admin Acetaminophen (Tylenol) 650 mg Q4H PRN ORAL Mild Pain/Temp > 100.5 11/28/16 10:30 12/28/16 10:29 11/28/16 10:31 Amoxicillin/ Clavulanate Potassium 875 mg 875 mg EVERY 12 HOURS ORAL 11/27/16 21:00 12/04/16 20:59 11/28/16 20:29 Chlorhexidine Gluconate (Natalie-Hex 2%) 1 applic DAILY TOPIC 11/25/16 14:00 12/25/16 13:59 11/28/16 08:07 Clonidine HCl (Catapres) 0.1 mg Q4H PRN ORAL For High Blood Pressure 11/25/16 17:00 12/25/16 16:59 Diphenhydramine HCl (Benadryl) 50 mg Q4H PRN IVP Itching 11/25/16 17:00 12/25/16 16:59 11/29/16 04:32 Hydromorphone HCl (Dilaudid) 4 mg Q3H PRN IVP For Severe Pain 11/26/16 18:00 12/03/16 17:59 11/29/16 04:32 Lorazepam (Ativan 2mg/ml 1ml) 1 mg Q4H PRN IV For Anxiety 11/25/16 16:45 12/02/16 16:44 11/27/16 18:23 Metoprolol Succinate (Toprol XL) 50 mg Q12HR ORAL 11/26/16 09:00 12/26/16 08:59 11/28/16 20:29 Ondansetron HCl (Zofran) 4 mg Q4H PRN IVP Nausea & Vomiting 11/24/16 23:45 12/24/16 23:44 Oxycodone HCl (OxyCONTIN) 40 mg Q8HR@0200,1000,1800 ORAL 11/25/16 19:00 12/02/16 18:59 11/29/16 02:07 Polyethylene Glycol (Miralax) 17 gm DAILY ORAL 11/28/16 11:00 12/28/16 10:59 Salmeterol Xinafoate/ Fluticasone (Advair 250/50 Diskus) 1 puffs BID INH 11/25/16 09:00 12/25/16 08:59 11/28/16 21:30 Sodium Chloride (Sodium Chloride 1000ml bag) 1,000 ml @ 100 mls/hr Q10H IV 11/28/16 00:30 01/12/17 00:29 11/29/16 02:02 Warfarin Sodium (Coumadin per pharmacy) 1 ea DAILY PRN MISC Per rx protocol 11/24/16 23:45 12/24/16 23:44 FIDEL SAVAGE M.D. Nov 29, 2016 08:32
[2016-11-29] MEDS: Augmentin 875mg Tab ORAL SCH ×2 (08:33→20:47)
[2016-11-29] MEDS: Miralax 17gm pkt ORAL SCH (08:34)
--- NOTE | 2016-11-29 08:44 | General Progress Note ---
Assessment/Plan Assessment/Plan (1) Sickle Cell Disease (2) Sickle Cell Crisis (3) Intractable pain The patient will be continued on OxyContin and Dilaudid. The patient was discussed with Dr. Nuno and Dr. Nuno concurred. Subjective Date patient seen: Nov 29, 2016 Time patient seen: 07:00 - am Allergies: Coded Allergies: MORPHINE (Verified Allergy, Mild, HALLUCINATIONS AND HIVES, 04/09/10) HALOPERIDOL (Verified Allergy, Unknown, 11/24/16) Subjective REVIEW OF SYSTEMS: Denies rash, fever, chills, sweating, dizziness, drowsiness, blurred vision, sore throat, or change in her weight. No shortness of breath or chest pain. No nausea, vomiting, or blood in the stool or urine. No bowel or bladder incontinence. No dysuria. She is complaining of generalized body pain. SUBJECTIVE: Pts pain is stable and tolerated on the medications. She will be going for Abdominal imaging later this morning. Objective Last 24 Hour Vital Signs Date Time Temp Pulse Resp B/P Pulse Ox O2 Delivery O2 Flow Rate FiO2 11/29/16 08:33 64 109/64 11/29/16 08:16 97.0 64 19 109/64 97 Room Air 11/29/16 04:00 97.7 67 18 122/70 95 Room Air 11/29/16 00:00 97.0 75 20 127/78 92 Room Air 11/28/16 21:31 80 16 96 Room Air 11/28/16 21:31 79 16 96 Room Air 11/28/16 20:29 85 128/78 11/28/16 20:00 98.6 83 20 128/78 91 Room Air 11/28/16 16:59 98.2 11/28/16 16:00 98.2 81 18 120/78 98 Room Air 11/28/16 12:00 98.2 88 18 132/80 98 Room Air 11/28/16 11:30 98.2 11/28/16 11:00 98.2 11/28/16 09:59 Room Air 11/28/16 09:59 Room Air 11/28/16 09:50 100.6 Intake and Output 11/28/16 11/29/16 19:00 07:00 Intake Total 1400 ml 1200 ml Balance 1400 ml 1200 ml Intake Oral 300 ml IV Total 1100 ml 1200 ml # Voids 3 3 Laboratory Tests 11/29/16 06:00: White Blood Count 9.7, Red Blood Count 2.29L, Hemoglobin 7.0L, Hematocrit 21.4L , Mean Corpuscular Volume 93, Mean Corpuscular Hemoglobin 30.4, Mean Corpuscular Hemoglobin Concent 32.6, Red Cell Distribution Width 21.6H, Platelet Count 117L, Mean Platelet Volume 11.2H, Neutrophils (%) (Auto) , Lymphocytes (%) (Auto) , Monocytes (%) (Auto) , Eosinophils (%) (Auto) , Basophils (%) (Auto) , Neutrophils % (Manual) [Pending], Lymphocytes % (Manual) [Pending], Platelet Estimate [Pending], Platelet Morphology [Pending], Reticulocyte Count [Pending], Prothrombin Time 14.7H, Prothromb Time International Ratio 1.4H, Sodium Level 136, Potassium Level 4.6, Chloride Level 97L, Carbon Dioxide Level 25, Anion Gap 14, Blood Urea Nitrogen 13, Creatinine 0.6, Estimat Glomerular Filtration Rate > 60, Glucose Level 88, Calcium Level 9.7, Lactate Dehydrogenase [Pending] Height (Feet): 5 Height (Inches): 4.00 Weight (Pounds): 137 Objective GENERAL: Alert, awake, and oriented. HEENT: PERRLA. NECK: Range of motion is full in all directions. No tenderness to paracervical muscles. No adenopathy. LUNGS: Decreased breath sounds bilaterally. HEART: S1 and S2 regular. ABDOMEN: Benign. EXTREMITIES: No cyanosis. No clubbing. NEURO: No changes. JEFFY CAMPA Nov 29, 2016 08:44
[2016-11-29] MEDS: Advair 250/50 Inhaler - 14 dose INH SCH ×2 (09:35→19:54)
[2016-11-29 09:56] LABS: ANISOCYTOSIS 2+; BAND NEUTROPHILS % (MANUAL) 0 % (0-8); BASOPHILS % (MANUAL) 0 % (0-2); EOSINOPHILS % (MANUAL) 16 % (0-3); HYPOCHROMASIA 1+; LYMPHOCYTES % (MANUAL) 38 % (20-45); NEUTROPHILS % (MANUAL) 36 % (45-75); NUCLEATED RED BLOOD CELLS 4 /100 WBC; PLATELET ESTIMATE DECREASED; PLATELET MORPHOLOGY NORMAL; POLYCHROMASIA 2+; SICKLE CELLS 2+; TOTAL CELLS COUNTED 100
[2016-11-29] MEDS ORDERED: Azithromycin 250mg tab ORAL ONE (10:00)
[2016-11-29 12:03] VITALS: BP 121/64
--- NOTE | 2016-11-29 15:39 | Diagnostic Imaging Report ---
Indication: Abdominal pain Technique: Long-scale and duplex images of the upper abdomen were obtained Comparison: 12/26/2006 Findings: Gallbladder is surgically absent. Common bile duct measures 8 mm in diameter. No intrahepatic biliary ductal dilatation. Liver demonstrates normal echogenicity, no focal abnormality. Portal vein and hepatic veins are patent. Pancreas is unremarkable. The spleen is not visualized. Left kidney measures 12.1 cm in length. Right kidney measures 11.5 cm length. Both kidneys demonstrate normal echogenicity. There is no hydronephrosis. No focal abnormality . Abdominal aorta is partially obscured by bowel gas, visualized portions are non-aneurysmal . Impression: Surgically absent gallbladder. Mildly ectatic common bile duct, probably related to postcholecystectomy state. Downstream obstruction not completely excludable. Correlate with liver function tests, consider nuclear medicine hepatobiliary scan or MRCP if clinically indicated Nonvisualization of the spleen. Given stated clinical history of sickle cell anemia, indicate autosplenectomy Note nonvisualization of portions of the distal abdominal aorta
[2016-11-29 16:00] VITALS: BP 118/63
[2016-11-29] MEDS ORDERED: Warfarin Sodium 10mg ORAL SCH (17:00)
--- NOTE | 2016-11-29 18:48 | Internal Med Progress Note ---
Subjective Date of Service: Nov 29, 2016 Physician Name Casie Posada Attending Physician Gurmeet Sears MD Current Medications Medications (Trade) Dose Ordered Sig/Dixie Route PRN Reason Start Time Stop Time Status Last Admin Dose Admin Acetaminophen (Tylenol) 650 mg Q4H PRN ORAL Mild Pain/Temp > 100.5 11/28/16 10:30 12/28/16 10:29 11/28/16 10:31 Amoxicillin/ Clavulanate Potassium 875 mg 875 mg EVERY 12 HOURS ORAL 11/27/16 21:00 12/04/16 20:59 11/29/16 08:33 Azithromycin (Zithromax) 250 mg DAILY ORAL 11/30/16 09:00 12/07/16 08:59 Chlorhexidine Gluconate (Natalie-Hex 2%) 1 applic DAILY TOPIC 11/25/16 14:00 12/25/16 13:59 11/29/16 08:32 Clonidine HCl (Catapres) 0.1 mg Q4H PRN ORAL For High Blood Pressure 11/25/16 17:00 12/25/16 16:59 Diphenhydramine HCl (Benadryl) 50 mg Q4H PRN IVP Itching 11/25/16 17:00 12/25/16 16:59 11/29/16 16:47 Hydromorphone HCl (Dilaudid) 4 mg Q3H PRN IVP For Severe Pain 11/26/16 18:00 12/03/16 17:59 11/29/16 16:47 Lorazepam (Ativan 2mg/ml 1ml) 1 mg Q4H PRN IV For Anxiety 11/25/16 16:45 12/02/16 16:44 11/27/16 18:23 Metoprolol Succinate (Toprol XL) 50 mg Q12HR ORAL 11/26/16 09:00 12/26/16 08:59 11/28/16 20:29 Mirtazapine (Remeron) 7.5 mg BEDTIME ORAL 11/29/16 21:00 12/29/16 20:59 Ondansetron HCl (Zofran) 4 mg Q4H PRN IVP Nausea & Vomiting 11/24/16 23:45 12/24/16 23:44 Oxycodone HCl (OxyCONTIN) 40 mg Q8HR@0200,1000,1800 ORAL 11/25/16 19:00 12/02/16 18:59 11/29/16 18:08 Polyethylene Glycol (Miralax) 17 gm DAILY ORAL 11/28/16 11:00 12/28/16 10:59 Salmeterol Xinafoate/ Fluticasone (Advair 250/50 Diskus) 1 puffs BID INH 11/25/16 09:00 12/25/16 08:59 11/28/16 21:30 Sodium Chloride (Sodium Chloride 1000ml bag) 1,000 ml @ 100 mls/hr Q10H IV 11/28/16 00:30 01/12/17 00:29 11/29/16 15:37 Warfarin Sodium (Coumadin per pharmacy) 1 ea DAILY PRN MISC Per rx protocol 11/24/16 23:45 12/24/16 23:44 Allergies: Coded Allergies: MORPHINE (Verified Allergy, Mild, HALLUCINATIONS AND HIVES, 04/09/10) HALOPERIDOL (Verified Allergy, Unknown, 11/24/16) ROS Limited/Unobtainable: No Constitutional: Reports: no symptoms HEENT: Reports: no symptoms Cardiovascular: Reports: no symptoms Respiratory: Reports: no symptoms Gastrointestinal/Abdominal: Reports: no symptoms Genitourinary: Reports: no symptoms Neurologic/Psychiatric: Reports: no symptoms Subjective 41 YO F admitted with sickle cell crisis and generalized pain. Cover for Int Med Dr Sears. Objective Last Vital Signs Date Time Temp Pulse Resp B/P Pulse Ox O2 Delivery O2 Flow Rate FiO2 11/29/16 16:00 97.0 63 19 118/63 97 Room Air 11/27/16 20:09 21 Laboratory Tests Test 11/29/16 06:00 White Blood Count 9.7 K/UL (4.8-10.8) Red Blood Count 2.29 M/UL (4.20-5.40) L Hemoglobin 7.0 G/DL (12.0-16.0) L Hematocrit 21.4 % (37.0-47.0) L Mean Corpuscular Volume 93 FL (80-99) Mean Corpuscular Hemoglobin 30.4 PG (27.0-31.0) Mean Corpuscular Hemoglobin Concent 32.6 G/DL (32.0-36.0) Red Cell Distribution Width 21.6 % (11.6-14.8) H Platelet Count 117 K/UL (150-450) L Mean Platelet Volume 11.2 FL (6.5-10.1) H Neutrophils (%) (Auto) % (45.0-75.0) Lymphocytes (%) (Auto) % (20.0-45.0) Monocytes (%) (Auto) % (1.0-10.0) Eosinophils (%) (Auto) % (0.0-3.0) Basophils (%) (Auto) % (0.0-2.0) Differential Total Cells Counted 100 Neutrophils % (Manual) 36 % (45-75) L Lymphocytes % (Manual) 38 % (20-45) Monocytes % (Manual) 10 % (1-10) Eosinophils % (Manual) 16 % (0-3) H Basophils % (Manual) 0 % (0-2) Band Neutrophils 0 % (0-8) Nucleated Red Blood Cells 4 /100 WBC Platelet Estimate Decreased L Platelet Morphology Normal Polychromasia 2+ Hypochromasia 1+ Anisocytosis 2+ Sickle Cells 2+ H Reticulocyte Count 9.6 % (0.0-2.0) H Prothrombin Time 14.7 SEC (9.30-11.50) H Prothromb Time International Ratio 1.4 (0.9-1.1) H Sodium Level 136 mEQ/L (135-145) Potassium Level 4.6 mEQ/L (3.4-4.9) Chloride Level 97 mEQ/L (98-107) L Carbon Dioxide Level 25 mEQ/L (20-30) Anion Gap 14 (5-15) Blood Urea Nitrogen 13 mg/dL (7-23) Creatinine 0.6 mg/dL (0.5-0.9) Estimat Glomerular Filtration Rate > 60 mL/min (>60) Glucose Level 88 mg/dL (74-106) Calcium Level 9.7 mg/dL (8.6-10.2) Lactate Dehydrogenase Pending Intake and Output 11/28/16 11/29/16 19:00 07:00 Intake Total 1400 ml 1200 ml Balance 1400 ml 1200 ml Intake Oral 300 ml IV Total 1100 ml 1200 ml # Voids 3 3 Objective General Appearance: WD/WN, no apparent distress, alert EENT: PERRL/EOMI, normal ENT inspection, TMs normal Neck: non-tender, normal alignment, supple, normal inspection Cardiovascular: normal peripheral pulses, normal rate, regular rhythm, no gallop/murmur, no JVD Respiratory/Chest: chest wall non-tender, lungs clear, normal breath sounds, no respiratory distress, no accessory muscle use Abdomen: normal bowel sounds, non tender, soft, no organomegaly, no mass Extremities: normal range of motion Edema: trace edema 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 (5) Sickle cell crisis (6) H/O sickle cell anemia Assessment & Plan: See heme/onc eval (7) Hypertension Assessment & Plan: Cont metoprolol (8) Severe anemia Assessment & Plan: See heme/onc note. S/P transfusion 1 unit PRBC 10/28/16; transfuse 1 unit PRBC today. CASIE POSADA Nov 29, 2016 18:48
[2016-11-29 20:00] VITALS: BP 121/68
--- NOTE | 2016-11-29 21:56 | Pulmonology Progress Note ---
Assessment/Plan Problems: (1) Sickle cell crisis (2) Anemia (3) intractable pain Assessment/Plan increase dilaudid fto 4 mag IV q 2 hours check LDH iv fluids s/p prbc dc planning soon Subjective ROS Limited/Unobtainable: No Allergies: Coded Allergies: MORPHINE (Verified Allergy, Mild, HALLUCINATIONS AND HIVES, 04/09/10) HALOPERIDOL (Verified Allergy, Unknown, 11/24/16) Objective Last 24 Hour Vital Signs Date Time Temp Pulse Resp B/P Pulse Ox O2 Delivery O2 Flow Rate FiO2 11/29/16 21:21 98.1 11/29/16 20:47 83 121/68 11/29/16 20:00 98.1 83 20 121/68 94 Room Air 11/29/16 19:55 79 16 97 Room Air 11/29/16 19:54 75 18 96 Room Air 11/29/16 16:00 97.0 63 19 118/63 97 Room Air 11/29/16 12:03 97.7 66 19 121/64 97 Room Air 11/29/16 09:35 73 18 96 Room Air 11/29/16 09:35 Room Air 11/29/16 08:16 97.0 64 19 109/64 97 Room Air 11/29/16 04:00 97.7 67 18 122/70 95 Room Air 11/29/16 00:00 97.0 75 20 127/78 92 Room Air Intake and Output 11/28/16 11/29/16 19:00 07:00 Intake Total 1400 ml 1200 ml Balance 1400 ml 1200 ml Intake Oral 300 ml IV Total 1100 ml 1200 ml # Voids 3 3 General Appearance: WD/WN HEENT: normocephalic, atraumatic Respiratory/Chest: chest wall non-tender Cardiovascular: normal peripheral pulses Abdomen: normal bowel sounds Extremities: no cyanosis Laboratory Tests 11/29/16 06:00: White Blood Count 9.7, Red Blood Count 2.29L, Hemoglobin 7.0L, Hematocrit 21.4L , Mean Corpuscular Volume 93, Mean Corpuscular Hemoglobin 30.4, Mean Corpuscular Hemoglobin Concent 32.6, Red Cell Distribution Width 21.6H, Platelet Count 117L, Mean Platelet Volume 11.2H, Neutrophils (%) (Auto) , Lymphocytes (%) (Auto) , Monocytes (%) (Auto) , Eosinophils (%) (Auto) , Basophils (%) (Auto) , Differential Total Cells Counted 100, Neutrophils % ( Manual) 36L, Lymphocytes % (Manual) 38, Monocytes % (Manual) 10, Eosinophils % ( Manual) 16H, Basophils % (Manual) 0, Band Neutrophils 0, Nucleated Red Blood Cells 4, Platelet Estimate DecreasedL, Platelet Morphology Normal, Polychromasia 2+, Hypochromasia 1+, Anisocytosis 2+, Sickle Cells 2+H, Reticulocyte Count 9.6H, Prothrombin Time 14.7H, Prothromb Time International Ratio 1.4H, Sodium Level 136, Potassium Level 4.6, Chloride Level 97L, Carbon Dioxide Level 25, Anion Gap 14, Blood Urea Nitrogen 13, Creatinine 0.6, Estimat Glomerular Filtration Rate > 60, Glucose Level 88, Calcium Level 9.7, Lactate Dehydrogenase [Pending] Current Medications Medications (Trade) Dose Ordered Sig/Dixie Route PRN Reason Start Time Stop Time Status Last Admin Dose Admin Acetaminophen (Tylenol) 650 mg Q4H PRN ORAL Mild Pain/Temp > 100.5 11/28/16 10:30 12/28/16 10:29 11/28/16 10:31 Amoxicillin/ Clavulanate Potassium 875 mg 875 mg EVERY 12 HOURS ORAL 11/27/16 21:00 12/04/16 20:59 11/29/16 20:47 Azithromycin (Zithromax) 250 mg DAILY ORAL 11/30/16 09:00 12/07/16 08:59 Chlorhexidine Gluconate (Natalie-Hex 2%) 1 applic DAILY TOPIC 11/25/16 14:00 12/25/16 13:59 11/29/16 08:32 Clonidine HCl (Catapres) 0.1 mg Q4H PRN ORAL For High Blood Pressure 11/25/16 17:00 12/25/16 16:59 Diphenhydramine HCl (Benadryl) 50 mg Q4H PRN IVP Itching 11/25/16 17:00 12/25/16 16:59 11/29/16 20:48 Hydromorphone HCl (Dilaudid) 4 mg Q3H PRN IVP For Severe Pain 11/26/16 18:00 12/03/16 17:59 11/29/16 20:48 Lorazepam (Ativan 2mg/ml 1ml) 1 mg Q4H PRN IV For Anxiety 11/25/16 16:45 12/02/16 16:44 11/27/16 18:23 Metoprolol Succinate (Toprol XL) 50 mg Q12HR ORAL 11/26/16 09:00 12/26/16 08:59 11/29/16 20:47 Mirtazapine (Remeron) 7.5 mg BEDTIME ORAL 11/29/16 21:00 12/29/16 20:59 11/29/16 20:47 Ondansetron HCl (Zofran) 4 mg Q4H PRN IVP Nausea & Vomiting 11/24/16 23:45 12/24/16 23:44 Oxycodone HCl (OxyCONTIN) 40 mg Q8HR@0200,1000,1800 ORAL 11/25/16 19:00 12/02/16 18:59 11/29/16 18:08 Polyethylene Glycol (Miralax) 17 gm DAILY ORAL 11/28/16 11:00 12/28/16 10:59 Salmeterol Xinafoate/ Fluticasone (Advair 250/50 Diskus) 1 puffs BID INH 11/25/16 09:00 12/25/16 08:59 11/29/16 19:54 Sodium Chloride (Sodium Chloride 1000ml bag) 1,000 ml @ 100 mls/hr Q10H IV 11/28/16 00:30 01/12/17 00:29 11/29/16 15:37 Warfarin Sodium (Coumadin per pharmacy) 1 ea DAILY PRN MISC Per rx protocol 11/24/16 23:45 12/24/16 23:44 ISIAH ANTOINE Nov 29, 2016 21:56
--- NOTE | 2016-11-29 23:06 | General Progress Note ---
Assessment/Plan Status: not improved Assessment/Plan Anxiety d/o -remeron 7.5mg po qhs -st/ro Subjective Constitutional: Reports: malaise, weakness Neurologic/Psychiatric: Reports: anxiety, depressed, emotional problems Allergies: Coded Allergies: MORPHINE (Verified Allergy, Mild, HALLUCINATIONS AND HIVES, 04/09/10) HALOPERIDOL (Verified Allergy, Unknown, 11/24/16) Objective Last 24 Hour Vital Signs Date Time Temp Pulse Resp B/P Pulse Ox O2 Delivery O2 Flow Rate FiO2 11/29/16 21:21 98.1 11/29/16 20:47 83 121/68 11/29/16 20:00 98.1 83 20 121/68 94 Room Air 11/29/16 19:55 79 16 97 Room Air 11/29/16 19:54 75 18 96 Room Air 11/29/16 16:00 97.0 63 19 118/63 97 Room Air 11/29/16 12:03 97.7 66 19 121/64 97 Room Air 11/29/16 09:35 73 18 96 Room Air 11/29/16 09:35 Room Air 11/29/16 08:16 97.0 64 19 109/64 97 Room Air 11/29/16 04:00 97.7 67 18 122/70 95 Room Air 11/29/16 00:00 97.0 75 20 127/78 92 Room Air Intake and Output 11/28/16 11/29/16 19:00 07:00 Intake Total 1400 ml 1200 ml Balance 1400 ml 1200 ml Intake Oral 300 ml IV Total 1100 ml 1200 ml # Voids 3 3 Laboratory Tests 11/29/16 06:00: White Blood Count 9.7, Red Blood Count 2.29L, Hemoglobin 7.0L, Hematocrit 21.4L , Mean Corpuscular Volume 93, Mean Corpuscular Hemoglobin 30.4, Mean Corpuscular Hemoglobin Concent 32.6, Red Cell Distribution Width 21.6H, Platelet Count 117L, Mean Platelet Volume 11.2H, Neutrophils (%) (Auto) , Lymphocytes (%) (Auto) , Monocytes (%) (Auto) , Eosinophils (%) (Auto) , Basophils (%) (Auto) , Differential Total Cells Counted 100, Neutrophils % ( Manual) 36L, Lymphocytes % (Manual) 38, Monocytes % (Manual) 10, Eosinophils % ( Manual) 16H, Basophils % (Manual) 0, Band Neutrophils 0, Nucleated Red Blood Cells 4, Platelet Estimate DecreasedL, Platelet Morphology Normal, Polychromasia 2+, Hypochromasia 1+, Anisocytosis 2+, Sickle Cells 2+H, Reticulocyte Count 9.6H, Prothrombin Time 14.7H, Prothromb Time International Ratio 1.4H, Sodium Level 136, Potassium Level 4.6, Chloride Level 97L, Carbon Dioxide Level 25, Anion Gap 14, Blood Urea Nitrogen 13, Creatinine 0.6, Estimat Glomerular Filtration Rate > 60, Glucose Level 88, Calcium Level 9.7, Lactate Dehydrogenase [Pending] Height (Feet): 5 Height (Inches): 4.00 Weight (Pounds): 137 General Appearance: alert, moderate distress, overweight Neurologic: alert, oriented x 3, responsive, depressed affect Wan Mancini M.D. Nov 29, 2016 23:06
[2016-11-30] VITALS: BP 134/78
[2016-11-30] MEDS: DiphenhydrAMINE 50mg/ml Inj IVP PRN ×5 (00:49→17:15)
[2016-11-30] MEDS: oxyCONTIN 20mg tab ORAL SCH (02:00)
--- NOTE | 2016-11-30 03:30 | Consultation ---
DATE OF CONSULTATION: 11/27/2016 HISTORY OF PRESENT ILLNESS: This is a 41-year-old female with a history of sickle cell disease, who has been admitted to the hospital with chief complaint of generalized pain. Psychiatry was consulted as the patient presented with anxiety. The patient currently is being treated with Ativan. The patient was not receptive to psychiatric evaluations. She stated that she "is not crazy". The patient will appeared anxious from the pain. She also endorses decreased energy, fatigue, insomnia, and anhedonia. PAST PSYCHIATRIC HISTORY: She denied any history of psychiatric illness. taking any medications. PAST MEDICAL HISTORY: Significant for sickle cell anemia and generalized pain. ALLERGIES: Morphine and haloperidol. SUBSTANCE ABUSE HISTORY: No history of illicit drug use or alcohol. MENTAL STATUS EXAMINATION: The patient is alert and oriented x4. Mood was anxious. Affect was constricted. Congruent mood. Thought process is concrete. Thought content, no suicidal or homicidal ideations. ASSESSMENT: AXIS I Mood disorder, not otherwise specified and anxiety disorder. AXIS II Deferred. AXIS III As above. AXIS IV Moderate. AXIS V Global assessment of functioning is 20. PLAN: 1. The patient was adamant against being started on medications. 2. We will continue the Ativan. 3. We will continue follow and encourage her to be receptive to psychotropic. 4. We will continue to follow. Wan Mancini M.D. DR: Osvaldo JOB#: [id number] CC:
[2016-11-30 04:00] VITALS: BP 126/67
[2016-11-30 06:39] LABS: INR 1.6 (0.9-1.1); PROTHROMBIN TIME 16.3 SEC (9.30-11.50)
[2016-11-30 06:54] LABS: MEAN CORPUSCULAR HEMOGLOBIN 32.5 PG (27.0-31.0); MEAN CORPUSCULAR HGB CONC 35.2 G/DL (32.0-36.0); MEAN CORPUSCULAR VOLUME 92 FL (80-99); MEAN PLATELET VOLUME 11.3 FL (6.5-10.1); PLATELET COUNT 138 K/UL (150-450); RED CELL DISTRIBUTION WIDTH 21.5 % (11.6-14.8); WHITE BLOOD COUNT 15.6 K/UL (4.8-10.8)
[2016-11-30 06:57] LABS: ANION GAP 13 (5-15); CALCIUM 9.7 mg/dL (8.6-10.2); CARBON DIOXIDE 26 mEQ/L (20-30); CHLORIDE 99 mEQ/L (98-107); CREATININE 0.7 mg/dL (0.5-0.9); GLOMERULAR FILTRATION RATE > 60 mL/min (>60); HEMOLYSIS 6; POTASSIUM 3.9 mEQ/L (3.4-4.9); SODIUM 138 mEQ/L (135-145)
[2016-11-30 07:26] LABS: BAND NEUTROPHILS % (MANUAL) 1 % (0-8); EOSINOPHILS % (MANUAL) 18 % (0-3); LYMPHOCYTES % (MANUAL) 32 % (20-45); NEUTROPHILS % (MANUAL) 39 % (45-75); NUCLEATED RED BLOOD CELLS 7 /100 WBC; TOTAL CELLS COUNTED 100
[2016-11-30 07:27] LABS: ANISOCYTOSIS 3+; BASOPHILS % (MANUAL) 0 % (0-2); HYPOCHROMASIA 2+; OVALOCYTES 1+; PLATELET ESTIMATE DECREASED; PLATELET MORPHOLOGY NORMAL; POIKILOCYTOSIS 2+; POLYCHROMASIA 2+
[2016-11-30 08:24] VITALS: BP 128/67
--- NOTE | 2016-11-30 08:54 | General Progress Note ---
Assessment/Plan Assessment/Plan (1) Sickle Cell Disease (2) Sickle Cell Crisis (3) Intractable pain The patient will be continued on OxyContin and Dilaudid will be changed to Dilaudid 8mg PO 1 Tab Q4H PRN severe pain. The patient was discussed with Dr. Nuno and Dr. Nuno concurred. Subjective Date patient seen: Nov 30, 2016 Time patient seen: 07:00 - am Allergies: Coded Allergies: MORPHINE (Verified Allergy, Mild, HALLUCINATIONS AND HIVES, 04/09/10) HALOPERIDOL (Verified Allergy, Unknown, 11/24/16) Subjective REVIEW OF SYSTEMS: Denies rash, fever, chills, sweating, dizziness, drowsiness, blurred vision, sore throat, or change in her weight. No shortness of breath or chest pain. No nausea, vomiting, or blood in the stool or urine. No bowel or bladder incontinence. No dysuria. She is complaining of generalized body pain. SUBJECTIVE: Pts reports that her pain has been unchanged and tolerated on the medications I d/w her about switching from IVP to tabs and she agrees. Objective Last 24 Hour Vital Signs Date Time Temp Pulse Resp B/P Pulse Ox O2 Delivery O2 Flow Rate FiO2 11/30/16 08:24 98.2 68 15 128/67 95 Room Air 11/30/16 05:18 99.0 11/30/16 04:00 98.8 75 20 126/67 Room Air 11/30/16 00:00 99.0 73 20 134/78 94 Room Air 11/29/16 20:47 83 121/68 11/29/16 20:00 98.1 83 20 121/68 94 Room Air 11/29/16 19:55 79 16 97 Room Air 11/29/16 19:54 75 18 96 Room Air 11/29/16 16:00 97.0 63 19 118/63 97 Room Air 11/29/16 12:03 97.7 66 19 121/64 97 Room Air 11/29/16 09:35 73 18 96 Room Air 11/29/16 09:35 Room Air Intake and Output 11/29/16 11/30/16 19:00 07:00 Intake Total 1360 ml 1250 ml Balance 1360 ml 1250 ml Intake Oral 360 ml IV Total 1000 ml 1000 ml Blood Product 250 ml # Voids 1 3 Laboratory Tests 11/30/16 05:00: White Blood Count 15.6#H, Red Blood Count 2.70L, Hemoglobin 8.8L, Hematocrit 25.0L, Mean Corpuscular Volume 92, Mean Corpuscular Hemoglobin 32.5H, Mean Corpuscular Hemoglobin Concent 35.2, Red Cell Distribution Width 21.5H, Platelet Count 138L, Mean Platelet Volume 11.3H, Neutrophils (%) (Auto) , Lymphocytes (%) (Auto) , Monocytes (%) (Auto) , Eosinophils (%) (Auto) , Basophils (%) (Auto) , Differential Total Cells Counted 100, Neutrophils % ( Manual) 39L, Lymphocytes % (Manual) 32, Monocytes % (Manual) 10, Eosinophils % ( Manual) 18H, Basophils % (Manual) 0, Band Neutrophils 1, Nucleated Red Blood Cells 7, Platelet Estimate DecreasedL, Platelet Morphology Normal, Polychromasia 2+, Hypochromasia 2+, Poikilocytosis 2+, Anisocytosis 3+, Ovalocytes 1+, Prothrombin Time 16.3H, Prothromb Time International Ratio 1.6H, Sodium Level 138, Potassium Level 3.9, Chloride Level 99, Carbon Dioxide Level 26, Anion Gap 13, Blood Urea Nitrogen 14, Creatinine 0.7, Estimat Glomerular Filtration Rate > 60, Glucose Level 88, Calcium Level 9.7 Height (Feet): 5 Height (Inches): 4.00 Weight (Pounds): 137 Objective GENERAL: Alert, awake, and oriented. HEENT: PERRLA. NECK: Range of motion is full in all directions. No tenderness to paracervical muscles. No adenopathy. LUNGS: Decreased breath sounds bilaterally. HEART: S1 and S2 regular. ABDOMEN: Benign. EXTREMITIES: No cyanosis. No clubbing. NEURO: No changes. JEFFY CAMPA Nov 30, 2016 08:54
[2016-11-30] MEDS: Augmentin 875mg Tab ORAL SCH (08:58)
[2016-11-30] MEDS: Miralax 17gm pkt ORAL SCH (09:00)
[2016-11-30] MEDS ORDERED: Azithromycin 250mg tab ORAL SCH (09:00)
[2016-11-30] MEDS ORDERED: Lactulose 20gm/30ml UDC ORAL PRN (09:15)
[2016-11-30] MEDS: Dyna-Hex 2% Top Sol 8oz TOPIC SCH (09:18)
[2016-11-30] MEDS: Advair 250/50 Inhaler - 14 dose INH SCH (09:21)
--- NOTE | 2016-11-30 09:54 | Infectious Diseases Prog Note ---
Assessment/Plan Assessment/Plan ASSESSMENT: 41 y/o female with: // Probable bronchitis - cough yellow sputum - CXR: No acute process // Periodontal disease // Leukocytosis - ( ? due to SS ) - no evidence of UTI or PNA // US: urgically absent gallbladder. // Sickle cell crisis // Sickle cell anemia // Thrombocytopenia // Elevated ESR, CRP // h/o DVT / PE, on coumadin - doppler(-) DVT // Tobacco abuse // Medical noncompliance, h/o AMA // Negative MRSA, VRE screens // No ABX allergies // Full Code PLAN: - cont Augmentin d# dental, add Zithromax d# 2 / for pulmonary coverage - transfuse prn - monitor CBC, temperatures Subjective Allergies: Coded Allergies: MORPHINE (Verified Allergy, Mild, HALLUCINATIONS AND HIVES, 04/09/10) HALOPERIDOL (Verified Allergy, Unknown, 11/24/16) Subjective no new complain Objective Vital Signs Last 24 Hour Vital Signs Date Time Temp Pulse Resp B/P Pulse Ox O2 Delivery O2 Flow Rate FiO2 11/30/16 09:23 68 16 96 Room Air 11/30/16 09:22 67 18 95 Room Air 11/30/16 08:57 68 128/67 11/30/16 08:24 98.2 68 15 128/67 95 Room Air 11/30/16 05:18 99.0 11/30/16 04:00 98.8 75 20 126/67 Room Air 11/30/16 00:00 99.0 73 20 134/78 94 Room Air 11/29/16 20:47 83 121/68 11/29/16 20:00 98.1 83 20 121/68 94 Room Air 11/29/16 19:55 79 16 97 Room Air 11/29/16 19:54 75 18 96 Room Air 11/29/16 16:00 97.0 63 19 118/63 97 Room Air 11/29/16 12:03 97.7 66 19 121/64 97 Room Air Height (Feet): 5 Height (Inches): 4.00 Weight (Pounds): 137 HEENT: anicteric Respiratory/Chest: no respiratory distress Cardiovascular: regularly irregular Abdomen: non distended Laboratory Tests Test 11/30/16 05:00 White Blood Count 15.6 K/UL (4.8-10.8) #H Red Blood Count 2.70 M/UL (4.20-5.40) L Hemoglobin 8.8 G/DL (12.0-16.0) L Hematocrit 25.0 % (37.0-47.0) L Mean Corpuscular Volume 92 FL (80-99) Mean Corpuscular Hemoglobin 32.5 PG (27.0-31.0) H Mean Corpuscular Hemoglobin Concent 35.2 G/DL (32.0-36.0) Red Cell Distribution Width 21.5 % (11.6-14.8) H Platelet Count 138 K/UL (150-450) L Mean Platelet Volume 11.3 FL (6.5-10.1) H Neutrophils (%) (Auto) % (45.0-75.0) Lymphocytes (%) (Auto) % (20.0-45.0) Monocytes (%) (Auto) % (1.0-10.0) Eosinophils (%) (Auto) % (0.0-3.0) Basophils (%) (Auto) % (0.0-2.0) Differential Total Cells Counted 100 Neutrophils % (Manual) 39 % (45-75) L Lymphocytes % (Manual) 32 % (20-45) Monocytes % (Manual) 10 % (1-10) Eosinophils % (Manual) 18 % (0-3) H Basophils % (Manual) 0 % (0-2) Band Neutrophils 1 % (0-8) Nucleated Red Blood Cells 7 /100 WBC Platelet Estimate Decreased L Platelet Morphology Normal Polychromasia 2+ Hypochromasia 2+ Poikilocytosis 2+ Anisocytosis 3+ Ovalocytes 1+ Prothrombin Time 16.3 SEC (9.30-11.50) H Prothromb Time International Ratio 1.6 (0.9-1.1) H Sodium Level 138 mEQ/L (135-145) Potassium Level 3.9 mEQ/L (3.4-4.9) Chloride Level 99 mEQ/L (98-107) Carbon Dioxide Level 26 mEQ/L (20-30) Anion Gap 13 (5-15) Blood Urea Nitrogen 14 mg/dL (7-23) Creatinine 0.7 mg/dL (0.5-0.9) Estimat Glomerular Filtration Rate > 60 mL/min (>60) Glucose Level 88 mg/dL (74-106) Calcium Level 9.7 mg/dL (8.6-10.2) Current Medications Medications (Trade) Dose Ordered Sig/Dixie Route PRN Reason Start Time Stop Time Status Last Admin Dose Admin Acetaminophen (Tylenol) 650 mg Q4H PRN ORAL Mild Pain/Temp > 100.5 11/28/16 10:30 12/28/16 10:29 11/28/16 10:31 Amoxicillin/ Clavulanate Potassium 875 mg 875 mg EVERY 12 HOURS ORAL 11/27/16 21:00 12/04/16 20:59 11/30/16 08:58 Azithromycin (Zithromax) 250 mg DAILY ORAL 11/30/16 09:00 12/07/16 08:59 11/30/16 08:58 Chlorhexidine Gluconate (Natalie-Hex 2%) 1 applic DAILY TOPIC 11/25/16 14:00 12/25/16 13:59 11/30/16 09:18 Clonidine HCl (Catapres) 0.1 mg Q4H PRN ORAL For High Blood Pressure 11/25/16 17:00 12/25/16 16:59 Diphenhydramine HCl (Benadryl) 50 mg Q4H PRN IVP Itching 11/25/16 17:00 12/25/16 16:59 11/30/16 08:59 Hydromorphone HCl (Dilaudid) 2 mg Q3H PRN IVP For Severe breakthrough Pain 11/30/16 12:00 12/07/16 11:59 UNV Hydromorphone HCl (Dilaudid) 8 mg Q4H PRN ORAL severe pain 11/30/16 09:15 12/07/16 09:14 UNV Lactulose (Cephulac) 30 gm Q4H PRN ORAL constipation 11/30/16 09:15 12/30/16 09:14 UNV Lorazepam (Ativan 2mg/ml 1ml) 1 mg Q4H PRN IV For Anxiety 11/25/16 16:45 12/02/16 16:44 11/27/16 18:23 Metoprolol Succinate (Toprol XL) 50 mg Q12HR ORAL 11/26/16 09:00 12/26/16 08:59 11/30/16 08:57 Mirtazapine (Remeron) 7.5 mg BEDTIME ORAL 11/29/16 21:00 12/29/16 20:59 11/29/16 20:47 Ondansetron HCl (Zofran) 4 mg Q4H PRN IVP Nausea & Vomiting 11/24/16 23:45 12/24/16 23:44 Oxycodone HCl (OxyCONTIN) 40 mg Q8HR@0200,1000,1800 ORAL 11/30/16 10:00 12/07/16 09:59 Polyethylene Glycol (Miralax) 17 gm DAILY ORAL 11/28/16 11:00 12/28/16 10:59 Salmeterol Xinafoate/ Fluticasone (Advair 250/50 Diskus) 1 puffs BID INH 11/25/16 09:00 12/25/16 08:59 11/30/16 09:21 Sodium Chloride (Sodium Chloride 1000ml bag) 1,000 ml @ 100 mls/hr Q10H IV 11/28/16 00:30 01/12/17 00:29 11/30/16 04:47 Warfarin Sodium (Coumadin per pharmacy) 1 ea DAILY PRN MISC Per rx protocol 11/24/16 23:45 12/24/16 23:44 FIDEL SAVAGE M.D. Nov 30, 2016 09:54
[2016-11-30] MEDS ORDERED: oxyCONTIN 20mg tab ORAL SCH (10:00)
--- NOTE | 2016-11-30 10:14 | General Progress Note ---
Assessment/Plan Assessment/Plan ASSESSMENTRECS: # Sickle cell crisis - have reviewed hgb electrophoresis from before and does in fact have sickle cell, has been noncompliant with medications, at this time presents with a crisis, retic elevated as is the unconjugated bilirubin, has been started on NS, pain meds, continue check retic daily. Pain meds until crisis improves ---> hgb goal is >7 or if patient is symptomatic, better now ---> hydroxyurea as outpatient to continue ---> outpatient heme followup # Sickle cell anemia. # Leukocytosis secondary to inflammatory process # Coaglopathy 2/2 coumadin # Hypertension. # Asthma. Subjective Date patient seen: Nov 29, 2016 Constitutional: Reports: no symptoms HEENT: Reports: no symptoms Cardiovascular: Reports: no symptoms Respiratory: Reports: no symptoms Gastrointestinal/Abdominal: Reports: no symptoms Genitourinary: Reports: no symptoms Neurologic/Psychiatric: Reports: no symptoms Endocrine: Reports: no symptoms Hematologic/Lymphatic: Reports: no symptoms Allergies: Coded Allergies: MORPHINE (Verified Allergy, Mild, HALLUCINATIONS AND HIVES, 04/09/10) HALOPERIDOL (Verified Allergy, Unknown, 11/24/16) Subjective hgb higher, pain improved with meds Objective Last 24 Hour Vital Signs Date Time Temp Pulse Resp B/P Pulse Ox O2 Delivery O2 Flow Rate FiO2 11/30/16 09:23 68 16 96 Room Air 11/30/16 09:22 67 18 95 Room Air 11/30/16 08:57 68 128/67 11/30/16 08:24 98.2 68 15 128/67 95 Room Air 11/30/16 05:18 99.0 11/30/16 04:00 98.8 75 20 126/67 Room Air 11/30/16 00:00 99.0 73 20 134/78 94 Room Air 11/29/16 20:47 83 121/68 11/29/16 20:00 98.1 83 20 121/68 94 Room Air 11/29/16 19:55 79 16 97 Room Air 11/29/16 19:54 75 18 96 Room Air 11/29/16 16:00 97.0 63 19 118/63 97 Room Air 11/29/16 12:03 97.7 66 19 121/64 97 Room Air Intake and Output 11/29/16 11/30/16 19:00 07:00 Intake Total 1360 ml 1250 ml Balance 1360 ml 1250 ml Intake Oral 360 ml IV Total 1000 ml 1000 ml Blood Product 250 ml # Voids 1 3 Laboratory Tests 11/30/16 05:00: White Blood Count 15.6#H, Red Blood Count 2.70L, Hemoglobin 8.8L, Hematocrit 25.0L, Mean Corpuscular Volume 92, Mean Corpuscular Hemoglobin 32.5H, Mean Corpuscular Hemoglobin Concent 35.2, Red Cell Distribution Width 21.5H, Platelet Count 138L, Mean Platelet Volume 11.3H, Neutrophils (%) (Auto) , Lymphocytes (%) (Auto) , Monocytes (%) (Auto) , Eosinophils (%) (Auto) , Basophils (%) (Auto) , Differential Total Cells Counted 100, Neutrophils % ( Manual) 39L, Lymphocytes % (Manual) 32, Monocytes % (Manual) 10, Eosinophils % ( Manual) 18H, Basophils % (Manual) 0, Band Neutrophils 1, Nucleated Red Blood Cells 7, Platelet Estimate DecreasedL, Platelet Morphology Normal, Polychromasia 2+, Hypochromasia 2+, Poikilocytosis 2+, Anisocytosis 3+, Ovalocytes 1+, Prothrombin Time 16.3H, Prothromb Time International Ratio 1.6H, Sodium Level 138, Potassium Level 3.9, Chloride Level 99, Carbon Dioxide Level 26, Anion Gap 13, Blood Urea Nitrogen 14, Creatinine 0.7, Estimat Glomerular Filtration Rate > 60, Glucose Level 88, Calcium Level 9.7 Height (Feet): 5 Height (Inches): 4.00 Weight (Pounds): 137 General Appearance: WD/WN EENT: PERRL/EOMI Neck: non-tender Cardiovascular: normal peripheral pulses Respiratory/Chest: chest wall non-tender Abdomen: non tender Extremities: non-tender Edema: no edema noted Leg (L), no edema noted Leg (R), no edema noted Pedal (L) , no edema noted Pedal (R) Leroy Anderson Nov 30, 2016 10:14
--- NOTE | 2016-11-30 10:15 | General Progress Note ---
Assessment/Plan Assessment/Plan ASSESSMENTRECS: # Sickle cell crisis - have reviewed hgb electrophoresis from before and does in fact have sickle cell, has been noncompliant with medications, at this time presents with a crisis, retic elevated as is the unconjugated bilirubin, has been started on NS, pain meds, continue check retic daily. Pain meds until crisis improves ---> hgb goal is >7 or if patient is symptomatic, better now ---> hydroxyurea as outpatient to continue ---> outpatient heme followup # Sickle cell anemia. # Leukocytosis secondary to inflammatory process # Coaglopathy 2/2 coumadin # Hypertension. # Asthma. Subjective Constitutional: Reports: no symptoms HEENT: Reports: no symptoms Cardiovascular: Reports: no symptoms Respiratory: Reports: no symptoms Gastrointestinal/Abdominal: Reports: no symptoms Genitourinary: Reports: no symptoms Neurologic/Psychiatric: Reports: no symptoms Endocrine: Reports: no symptoms Hematologic/Lymphatic: Reports: anemia Allergies: Coded Allergies: MORPHINE (Verified Allergy, Mild, HALLUCINATIONS AND HIVES, 04/09/10) HALOPERIDOL (Verified Allergy, Unknown, 11/24/16) Subjective s/p blood transfusion, refusing Miralax for BM needed for occult blood Objective Last 24 Hour Vital Signs Date Time Temp Pulse Resp B/P Pulse Ox O2 Delivery O2 Flow Rate FiO2 11/30/16 09:23 68 16 96 Room Air 11/30/16 09:22 67 18 95 Room Air 11/30/16 08:57 68 128/67 11/30/16 08:24 98.2 68 15 128/67 95 Room Air 11/30/16 05:18 99.0 11/30/16 04:00 98.8 75 20 126/67 Room Air 11/30/16 00:00 99.0 73 20 134/78 94 Room Air 11/29/16 20:47 83 121/68 11/29/16 20:00 98.1 83 20 121/68 94 Room Air 11/29/16 19:55 79 16 97 Room Air 11/29/16 19:54 75 18 96 Room Air 11/29/16 16:00 97.0 63 19 118/63 97 Room Air 11/29/16 12:03 97.7 66 19 121/64 97 Room Air Intake and Output 11/29/16 11/30/16 19:00 07:00 Intake Total 1360 ml 1250 ml Balance 1360 ml 1250 ml Intake Oral 360 ml IV Total 1000 ml 1000 ml Blood Product 250 ml # Voids 1 3 Laboratory Tests 11/30/16 05:00: White Blood Count 15.6#H, Red Blood Count 2.70L, Hemoglobin 8.8L, Hematocrit 25.0L, Mean Corpuscular Volume 92, Mean Corpuscular Hemoglobin 32.5H, Mean Corpuscular Hemoglobin Concent 35.2, Red Cell Distribution Width 21.5H, Platelet Count 138L, Mean Platelet Volume 11.3H, Neutrophils (%) (Auto) , Lymphocytes (%) (Auto) , Monocytes (%) (Auto) , Eosinophils (%) (Auto) , Basophils (%) (Auto) , Differential Total Cells Counted 100, Neutrophils % ( Manual) 39L, Lymphocytes % (Manual) 32, Monocytes % (Manual) 10, Eosinophils % ( Manual) 18H, Basophils % (Manual) 0, Band Neutrophils 1, Nucleated Red Blood Cells 7, Platelet Estimate DecreasedL, Platelet Morphology Normal, Polychromasia 2+, Hypochromasia 2+, Poikilocytosis 2+, Anisocytosis 3+, Ovalocytes 1+, Prothrombin Time 16.3H, Prothromb Time International Ratio 1.6H, Sodium Level 138, Potassium Level 3.9, Chloride Level 99, Carbon Dioxide Level 26, Anion Gap 13, Blood Urea Nitrogen 14, Creatinine 0.7, Estimat Glomerular Filtration Rate > 60, Glucose Level 88, Calcium Level 9.7 Height (Feet): 5 Height (Inches): 4.00 Weight (Pounds): 137 General Appearance: WD/WN EENT: PERRL/EOMI Neck: non-tender Cardiovascular: normal peripheral pulses Respiratory/Chest: lungs clear Abdomen: normal bowel sounds Pelvis: normal external exam Edema: no edema noted Leg (L), no edema noted Leg (R), no edema noted Pedal (L) , no edema noted Pedal (R) Leroy Anderson Nov 30, 2016 10:15
[2016-11-30 11:15] VITALS: BP 127/76
--- NOTE | 2016-11-30 12:57 | Diagnostic Imaging Report ---
APPROVED REPORT CPT Code: 34916 Present Symptoms Comments: Pain BILATERAL: Imaging reveals a patent deep venous system bilaterally. There is no evidence of thrombus within the femoral, popliteal or tibial segments. The greater saphenous veins are also within normal limits. Doppler indicates normal spontaneous flow within these segments.
[2016-11-30] MEDS: HYDROmorphone 4mg tab ORAL PRN ×2 (13:10→17:14)
[2016-11-30 14:02] LABS: OTHERS PATHOLOGIST COMMENT
--- NOTE | 2016-11-30 15:27 | Pulmonology Progress Note ---
Assessment/Plan Problems: (1) Sickle cell crisis (2) Anemia (3) intractable pain Assessment/Plan improng on dilaudid fto 4 mag IV q 2 hours check LDH iv fluids s/p prbc dc home Subjective ROS Limited/Unobtainable: No Constitutional: Reports: no symptoms HEENT: Repors: no symptoms Allergies: Coded Allergies: MORPHINE (Verified Allergy, Mild, HALLUCINATIONS AND HIVES, 04/09/10) HALOPERIDOL (Verified Allergy, Unknown, 11/24/16) Objective Last 24 Hour Vital Signs Date Time Temp Pulse Resp B/P Pulse Ox O2 Delivery O2 Flow Rate FiO2 11/30/16 11:15 98.2 69 15 127/76 97 Room Air 11/30/16 09:23 68 16 96 Room Air 11/30/16 09:22 67 18 95 Room Air 11/30/16 08:57 68 128/67 11/30/16 08:24 98.2 68 15 128/67 95 Room Air 11/30/16 05:18 99.0 11/30/16 04:00 98.8 75 20 126/67 Room Air 11/30/16 00:00 99.0 73 20 134/78 94 Room Air 11/29/16 20:47 83 121/68 11/29/16 20:00 98.1 83 20 121/68 94 Room Air 11/29/16 19:55 79 16 97 Room Air 11/29/16 19:54 75 18 96 Room Air 11/29/16 16:00 97.0 63 19 118/63 97 Room Air Intake and Output 11/29/16 11/30/16 19:00 07:00 Intake Total 1360 ml 1250 ml Balance 1360 ml 1250 ml Intake Oral 360 ml IV Total 1000 ml 1000 ml Blood Product 250 ml # Voids 1 3 General Appearance: WD/WN HEENT: normocephalic, atraumatic Respiratory/Chest: chest wall non-tender, lungs clear Cardiovascular: normal peripheral pulses, normal rate Abdomen: normal bowel sounds, no organomegaly Genitourinary: normal external genitalia Skin: no rash 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 Laboratory Tests 11/30/16 05:00: White Blood Count 15.6#H, Red Blood Count 2.70L, Hemoglobin 8.8L, Hematocrit 25.0L, Mean Corpuscular Volume 92, Mean Corpuscular Hemoglobin 32.5H, Mean Corpuscular Hemoglobin Concent 35.2, Red Cell Distribution Width 21.5H, Platelet Count 138L, Mean Platelet Volume 11.3H, Neutrophils (%) (Auto) , Lymphocytes (%) (Auto) , Monocytes (%) (Auto) , Eosinophils (%) (Auto) , Basophils (%) (Auto) , Differential Total Cells Counted 100, Neutrophils % ( Manual) 39L, Lymphocytes % (Manual) 32, Monocytes % (Manual) 10, Eosinophils % ( Manual) 18H, Basophils % (Manual) 0, Band Neutrophils 1, Nucleated Red Blood Cells 7, Platelet Estimate DecreasedL, Platelet Morphology Normal, Polychromasia 2+, Hypochromasia 2+, Poikilocytosis 2+, Anisocytosis 3+, Ovalocytes 1+, Prothrombin Time 16.3H, Prothromb Time International Ratio 1.6H, Sodium Level 138, Potassium Level 3.9, Chloride Level 99, Carbon Dioxide Level 26, Anion Gap 13, Blood Urea Nitrogen 14, Creatinine 0.7, Estimat Glomerular Filtration Rate > 60, Glucose Level 88, Calcium Level 9.7 Current Medications Medications (Trade) Dose Ordered Sig/Dixie Route PRN Reason Start Time Stop Time Status Last Admin Dose Admin Acetaminophen (Tylenol) 650 mg Q4H PRN ORAL Mild Pain/Temp > 100.5 11/28/16 10:30 12/28/16 10:29 11/28/16 10:31 Amoxicillin/ Clavulanate Potassium 875 mg 875 mg EVERY 12 HOURS ORAL 11/27/16 21:00 12/04/16 20:59 11/30/16 08:58 Azithromycin (Zithromax) 250 mg DAILY ORAL 11/30/16 09:00 12/07/16 08:59 11/30/16 08:58 Chlorhexidine Gluconate (Natalie-Hex 2%) 1 applic DAILY TOPIC 11/25/16 14:00 12/25/16 13:59 11/30/16 09:18 Clonidine HCl (Catapres) 0.1 mg Q4H PRN ORAL For High Blood Pressure 11/25/16 17:00 12/25/16 16:59 Diphenhydramine HCl (Benadryl) 50 mg Q4H PRN IVP Itching 11/25/16 17:00 12/25/16 16:59 11/30/16 13:10 Hydromorphone HCl (Dilaudid) 2 mg Q3H PRN IVP For Severe breakthrough Pain 11/30/16 12:00 12/07/16 11:59 11/30/16 14:42 Hydromorphone HCl (Dilaudid) 8 mg Q4H PRN ORAL severe pain 11/30/16 09:15 12/07/16 09:14 11/30/16 13:10 Lactulose (Cephulac) 30 gm Q4H PRN ORAL constipation 11/30/16 09:15 12/30/16 09:14 Lorazepam (Ativan 2mg/ml 1ml) 1 mg Q4H PRN IV For Anxiety 11/25/16 16:45 12/02/16 16:44 11/27/16 18:23 Metoprolol Succinate (Toprol XL) 50 mg Q12HR ORAL 11/26/16 09:00 12/26/16 08:59 11/30/16 08:57 Mirtazapine (Remeron) 7.5 mg BEDTIME ORAL 11/29/16 21:00 12/29/16 20:59 11/29/16 20:47 Ondansetron HCl (Zofran) 4 mg Q4H PRN IVP Nausea & Vomiting 11/24/16 23:45 12/24/16 23:44 Oxycodone HCl (OxyCONTIN) 40 mg Q8HR@0200,1000,1800 ORAL 11/30/16 10:00 12/07/16 09:59 11/30/16 11:09 Polyethylene Glycol (Miralax) 17 gm DAILY ORAL 11/28/16 11:00 12/28/16 10:59 Salmeterol Xinafoate/ Fluticasone (Advair 250/50 Diskus) 1 puffs BID INH 11/25/16 09:00 12/25/16 08:59 11/30/16 09:21 Sodium Chloride (Sodium Chloride 1000ml bag) 1,000 ml @ 100 mls/hr Q10H IV 11/28/16 00:30 01/12/17 00:29 11/30/16 04:47 Warfarin Sodium (Coumadin per pharmacy) 1 ea DAILY PRN MISC Per rx protocol 11/24/16 23:45 12/24/16 23:44 Warfarin Sodium (Coumadin) 10 mg COUMADIN ORAL 11/30/16 17:00 11/30/16 17:01 ISIAH ANTOINE Nov 30, 2016 15:27
[2016-11-30 15:55] VITALS: BP 138/76
[2016-11-30] MEDS ORDERED: Warfarin Sodium 10mg ORAL SCH (17:00)
[2016-11-30] MEDS ORDERED: ZITHROMAX250 MG ORAL (17:30)
[2016-11-30] MEDS ORDERED: AUGMENTIN 875-1 EAC1 ORAL (17:31)
[2016-11-30] MEDS ORDERED: NS 275ml ONE (18:56)
[2016-11-30] MEDS ORDERED: Tubing Blood Filter IV ONE (18:56)
--- NOTE | 2016-11-30 19:03 | Internal Med Progress Note ---
Subjective Date of Service: Nov 30, 2016 Physician Name Adrián Posada Attending Physician uGrmeet Sears MD Allergies: Coded Allergies: MORPHINE (Verified Allergy, Mild, HALLUCINATIONS AND HIVES, 04/09/10) HALOPERIDOL (Verified Allergy, Unknown, 11/24/16) ROS Limited/Unobtainable: No Constitutional: Reports: no symptoms HEENT: Reports: no symptoms Cardiovascular: Reports: no symptoms Respiratory: Reports: no symptoms Gastrointestinal/Abdominal: Reports: no symptoms Genitourinary: Reports: no symptoms Neurologic/Psychiatric: Reports: no symptoms Subjective 41 YO F admitted with sickle cell crisis and generalized pain. Cover for Int Med Dr Sears. Objective Last Vital Signs Date Time Temp Pulse Resp B/P Pulse Ox O2 Delivery O2 Flow Rate FiO2 11/30/16 15:55 98.2 71 15 138/76 95 11/30/16 11:15 Room Air 11/27/16 20:09 21 Laboratory Tests Test 11/30/16 05:00 White Blood Count 15.6 K/UL (4.8-10.8) #H Red Blood Count 2.70 M/UL (4.20-5.40) L Hemoglobin 8.8 G/DL (12.0-16.0) L Hematocrit 25.0 % (37.0-47.0) L Mean Corpuscular Volume 92 FL (80-99) Mean Corpuscular Hemoglobin 32.5 PG (27.0-31.0) H Mean Corpuscular Hemoglobin Concent 35.2 G/DL (32.0-36.0) Red Cell Distribution Width 21.5 % (11.6-14.8) H Platelet Count 138 K/UL (150-450) L Mean Platelet Volume 11.3 FL (6.5-10.1) H Neutrophils (%) (Auto) % (45.0-75.0) Lymphocytes (%) (Auto) % (20.0-45.0) Monocytes (%) (Auto) % (1.0-10.0) Eosinophils (%) (Auto) % (0.0-3.0) Basophils (%) (Auto) % (0.0-2.0) Differential Total Cells Counted 100 Neutrophils % (Manual) 39 % (45-75) L Lymphocytes % (Manual) 32 % (20-45) Monocytes % (Manual) 10 % (1-10) Eosinophils % (Manual) 18 % (0-3) H Basophils % (Manual) 0 % (0-2) Band Neutrophils 1 % (0-8) Nucleated Red Blood Cells 7 /100 WBC Platelet Estimate Decreased L Platelet Morphology Normal Polychromasia 2+ Hypochromasia 2+ Poikilocytosis 2+ Anisocytosis 3+ Ovalocytes 1+ Prothrombin Time 16.3 SEC (9.30-11.50) H Prothromb Time International Ratio 1.6 (0.9-1.1) H Sodium Level 138 mEQ/L (135-145) Potassium Level 3.9 mEQ/L (3.4-4.9) Chloride Level 99 mEQ/L (98-107) Carbon Dioxide Level 26 mEQ/L (20-30) Anion Gap 13 (5-15) Blood Urea Nitrogen 14 mg/dL (7-23) Creatinine 0.7 mg/dL (0.5-0.9) Estimat Glomerular Filtration Rate > 60 mL/min (>60) Glucose Level 88 mg/dL (74-106) Calcium Level 9.7 mg/dL (8.6-10.2) Intake and Output 11/29/16 11/30/16 18:59 06:59 Intake Total 1460 ml 1150 ml Balance 1460 ml 1150 ml Intake Oral 360 ml IV Total 1100 ml 900 ml Blood Product 250 ml # Voids 1 3 Objective General Appearance: WD/WN, no apparent distress, alert EENT: PERRL/EOMI, normal ENT inspection, TMs normal Neck: non-tender, normal alignment, supple, normal inspection Cardiovascular: normal peripheral pulses, normal rate, regular rhythm, no gallop/murmur, no JVD Respiratory/Chest: chest wall non-tender, lungs clear, normal breath sounds, no respiratory distress, no accessory muscle use Abdomen: normal bowel sounds, non tender, soft, no organomegaly, no mass Extremities: normal range of motion Edema: trace edema 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 (5) Sickle cell crisis (6) H/O sickle cell anemia Assessment & Plan: See heme/onc eval (7) Hypertension Assessment & Plan: Cont metoprolol (8) Severe anemia Assessment & Plan: See heme/onc note. S/P transfusion 2 unit PRBC total Status: stable Assessment/Plan Discharge home today ADRIÁN POSADA Nov 30, 2016 19:03
--- NOTE | 2016-12-01 18:44 | Discharge Summary ---
Discharge Summary Hospital Course Date of Admission Nov 24, 2016 at 17:46 Date of Discharge Nov 30, 2016 at 18:57 Admitting Diagnosis sickle cell crisis HPI Familia Kaplan is a 41 year old female who was admitted on Nov 24, 2016 at 17: 46 for Sickle Cell Crisis Hospital Course [id number] Discharge Discharge Disposition Patient was discharged to Home (01) Discharge Diagnoses: Erinn Naidu NP Dec 01, 2016 18:44
--- NOTE | 2016-12-01 21:00 | Progress Note ---
DATE: 11/30/2016 SUBJECTIVE: The patient is doing well. No behavior issues. Calm and cooperative. Mood still however has anxiety. MENTAL STATUS EXAMINATION: Alert and oriented x3. Mood is depressed. Affect is constricted, congruent with mood. Thought process is concrete. Thought content, no suicidal or homicidal ideations. ASSESSMENT: Anxiety disorder. PLAN: 1. The patient will be continued on current medication. 2. The patient not met the criteria for danger to self or inpatient level of care. Wan Mancini M.D. DR: LISA JOB#: [id number] CC:
--- NOTE | 2016-12-02 01:00 | Discharge Summary 2 SIG ---
DATE OF ADMISSION: 11/24/2016 DATE OF DISCHARGE: 11/30/2016 CONSULTANTS: 1. Dustin Syed M.D. 2. Leroy Anderson M.D. 3. Larry Del Cid M.D. 4. Wanda Nuno M.D. 5. Wan Mancini M.D. BRIEF HOSPITAL COURSE: The patient is a 41-year-old female with history of sickle cell disease, presented with generalized pain. She apparently was seen at [facility] a day prior to admission and received blood transfusion. She was seen at [facility] and was told that she needed blood transfusion, however she signed out against medical advice. On evaluation at ED, hemoglobin was 7.4, hematocrit was 23, and WBC was 15, and reticulocyte count was 3.4. EKG showed normal sinus rhythm and chest x-ray was negative for consolidation, effusion, pneumothorax, or acute cardiopulmonary disease. There is a right chest port catheter seen. She was admitted for sickle cell crisis and was started on IV hydration and was seen by pain management and was given OxyContin and Dilaudid. She also presented with leukocytosis. Infectious Disease was consulted. Chest x-ray was negative. Urinalysis was negative. There was no fever. She was initially observed off antibiotics, however was started on Augmentin due to presence of cough with yellowish sputum and periodontal disease. She was also given Zithromax for pulmonary coverage. She was followed by [facility] for evaluation of sickle cell crisis. The patient was advised to continue hydroxyurea as an outpatient. During inpatient stay here, hemoglobin dropped to 5.8 and she received total two units of packed RBC for blood transfusion. She has several history of signing out against medical advice and noncompliance with medication. Psychiatric consult was done as the patient presented with anxiety and the patient was not receptive to psychiatric evaluation and endorsed decreased energy, fatigue, insomnia, and anhedonia. She was diagnosed to have mood disorder and anxiety disorder. She was adamant against being started on new medication. The patient was continued on Ativan p.r.n. She was eventually discharged home. FINAL DIAGNOSES: 1. Sickle cell crisis. 2. Acute anemia, requiring blood transfusion. 3. Opiate dependence. 4. Opioid abuse. 5. Acute on chronic pain. 6. Hypertension. 7. Probable bronchitis. 8. Medical noncompliance with history of multiple against medical advice. 9. Sickle cell anemia. 10. Thrombocytopenia. 11. Mood disorder. Adrián Ceballos M.D. I have been assigned to dictate discharge summary on this account and I was not involved in the patient's management. Erinn Naidu N.P. DR: Chantal JOB#: [id number] CC:
== END 2016-11-30 18:57 | disposition home or self-care (01) | DRG 812 ==
LOC: EMR 17:20 → 4E 17:46 → EDBEDREQ 20:58
PROC: 30233N1 Transfusion of Nonautologous Red Blood Cells into Peripheral Vein, Percutaneous Approach (ICD-10-PCS; principal; 2016-11-29)
DX: D57.00 Hb-SS disease with crisis, unspecified (principal); D69.6 Thrombocytopenia, unspecified; F11.20 Opioid dependence, uncomplicated; D64.9 Anemia, unspecified; I10 Essential (primary) hypertension; J45.909 Unspecified asthma, uncomplicated; Z86.718 Personal history of other venous thrombosis and embolism; Z86.711 Personal history of pulmonary embolism; F17.200 Nicotine dependence, unspecified, uncomplicated; F39 Unspecified mood [affective] disorder; F41.9 Anxiety disorder, unspecified; J40 Bronchitis, not specified as acute or chronic; Z91.19 Patient's noncompliance with other medical treatment and regimen; Z88.6 Allergy status to analgesic agent; Z88.8 Allergy status to other drugs, medicaments and biological substances; Z79.01 Long term (current) use of anticoagulants; J44.9 Chronic obstructive pulmonary disease, unspecified; R62.7 Adult failure to thrive; K05.6 Periodontal disease, unspecified
CPT/HCPCS: 36415; 71010; 76700; 80048; 80053; 80300; 81003; 81025; 82248; 82550; 82607; 82728; 83010; 83020; 83540; 83550; 83615; 83735; 83880; 84100; 84238; 84484; 85007; 85025; 85044; 85060; 85610; 85651; 85730; 86140; 86850; 86870; 86880; 86900; 86901; 86904; 86920; 87081; 93005; 93970; 94640; J2405

== ENCOUNTER 2017-01-11 21:21 | Emergency (ER) | payer MEDICARE, MEDICAID ==
[~2017-01-11] VITALS: Ht 162.6 cm; Wt 68.0 kg
[~2017-01-11 21:21] MED LIST changes: +ADVAIR 100-501 EACH INH; +AMBIEN5 MG ORAL; +AUGMENTIN 875-1 EAC1 ORAL; +ZITHROMAX250 MG ORAL
[2017-01-11] MEDS ORDERED: ATIVAN2 MG ORAL (21:33)
[2017-01-11] MEDS ORDERED: FOLIC ACID1 MG ORAL (21:33)
[2017-01-11 21:53] VITALS: BP 125/71
--- NOTE | 2017-01-11 22:26 | Emergency Room Report ---
History of Present Illness General Chief Complaint: Pain Source: Patient Present Illness HPI Is a 41-year-old female with history sickle cell with multiple ER visit felt here and [facility]. She has history of chronic pain. She presents with chief complaint of sickle cell crisis. She was is at [facility] earlier today. She was seen by Dr. Shelley Arthur. Labs are unremarkable. Her chest x-ray was negative. Reticulocyte count was 8.7%. Hemoglobin is 9.4. CMP normal. Troponin negative. She left and came here. She complaining of sickle cell pain. Pain is diffuse. 10 out of 10. No fever chills but no nausea no vomiting. Patient said she can't walk. Allergies: Coded Allergies: MORPHINE (Verified Allergy, Mild, HALLUCINATIONS AND HIVES, 04/09/10) HALOPERIDOL (Verified Allergy, Unknown, 11/24/16) Patient History Past Medical History: see triage record, old chart reviewed Past Surgical History: other Pertinent Family History: none Social History: Denies: drug use Last Menstrual Period: december 28 Now: No Immunizations: other Reviewed Nursing Documentation: PMH: Agreed, PSxH: Agreed Nursing Documentation-PMH Past Medical History: No History, Except For Hx Hypertension: Yes Hx Asthma: Yes Hx COPD: Yes Hx Cancer: No Hx Gastrointestinal Problems: Yes Hx Neurological Problems: No Review of Systems Eye: Denies: blurred vision, eye pain ENT: Denies: ear pain, nose congestion, throat swelling Respiratory: Denies: cough, shortness of breath Cardiovascular: Denies: chest pain, palpitations Gastrointestinal: Denies: abdominal pain, diarrhea, nausea, vomiting Musculoskeletal: Reports: joint pain, muscle pain, Denies: back pain Skin: Denies: rash Neurological: Denies: headache, numbness Endocrine: Denies: increased thirst, increased urine Hematologic/Lymphatic: Denies: easy bruising All Other Systems: negative except mentioned in HPI Physical Exam Vital Signs Date Time Temp Pulse Resp B/P Pulse Ox O2 Delivery O2 Flow Rate FiO2 01/11/17 21:27 98.6 79 16 125/71 96 Room Air vitals normal Sp02 EP Interpretation: reviewed, normal General Appearance: well appearing, no apparent distress, alert, other - Patient walked without any difficulty. Head: normocephalic, atraumatic Eyes: bilateral eye EOMI, bilateral eye PERRL ENT: hearing grossly normal, normal pharynx Neck: full range of motion, supple, no meningismus Respiratory: chest non-tender, lungs clear, normal breath sounds Cardiovascular #1: regular rate, rhythm, no murmur Gastrointestinal: normal bowel sounds, non tender, no mass, no organomegaly, no bruit, non-distended Musculoskeletal: back normal, gait/station normal, normal range of motion Psychiatric: mood/affect normal Skin: warm/dry Medical Decision Making Diagnostic Impression: Primary Impression: Drug-seeking behavior Additional Impressions: Sickle cell crisis opiate dependent ER Course Patient presents with sickle cell pain. I called [facility] and discussed the case with Dr. Arthur. She said that she call primary care who will see patient in the morning. I checked the [employer] system, patient received a total of 500 tablets of Dilaudid since 12/17/2016. Patient keep asking for Dilaudid and Benadryl here. I see no need for repeat lab tests or x-rays. We'll discharge home. Last Vital Signs Date Time Temp Pulse Resp B/P Pulse Ox O2 Delivery O2 Flow Rate FiO2 01/11/17 21:53 98.6 93 16 125/71 96 Room Air Status: unchanged Disposition: HOME, SELF-CARE Condition: Stable Referrals: CASIE POSADA (PCP) Patient Instructions: Chronic Pain Additional Instructions: See your DrCheli tomorrow for refill on your medication. Stop going to different ERs for your pain medication. Return if symptom worsen. JOEL ACUNA M.D. Jan 11, 2017 22:26
[2017-01-11] MEDS ORDERED: Norco 5mg/325mg tab ORAL ONE (22:30)
[2017-01-11 22:40] VITALS: BP 125/69
== END 2017-01-11 22:40 | disposition home or self-care (01) ==
LOC: EMR 21:48
DX: D57.00 Hb-SS disease with crisis, unspecified (principal); J44.9 Chronic obstructive pulmonary disease, unspecified; I10 Essential (primary) hypertension; F11.20 Opioid dependence, uncomplicated; Z88.6 Allergy status to analgesic agent
CPT/HCPCS: 99282

== ENCOUNTER 2017-01-12 06:13 | Emergency (ER) | payer MEDICARE, MEDICAID ==
[~2017-01-12] VITALS: Ht 165.1 cm; Wt 59.0 kg
[~2017-01-12 06:13] MED LIST changes: +ATIVAN2 MG ORAL
--- NOTE | 2017-01-12 06:25 | Emergency Room Report ---
History of Present Illness General Chief Complaint: To Be Triaged Source: Patient Present Illness HPI Is a 41-year-old female well-known to me. She had taken earlier tonight with sickle cell crisis. She has long-standing history of opioid dependence and on a hefty dose of Dilaudid. Patient was seen at [place] and was discharged. She came in now complaining of pain. When she saw that I was still on it she got up and left without being triage. Allergies: Coded Allergies: MORPHINE (Verified Allergy, Mild, HALLUCINATIONS AND HIVES, 04/09/10) HALOPERIDOL (Verified Allergy, Unknown, 11/24/16) Patient History Past Medical History: see triage record, old chart reviewed Past Surgical History: other Pertinent Family History: none Social History: Denies: smoking Now: No Immunizations: other Reviewed Nursing Documentation: PMH: Agreed, PSxH: Agreed Nursing Documentation-PMH Hx Hypertension: Yes Hx Asthma: Yes Hx COPD: Yes Hx Cancer: No Hx Gastrointestinal Problems: Yes Hx Neurological Problems: No Medical Decision Making Diagnostic Impression: Primary Impression: Sickle cell crisis Additional Impressions: Drug-seeking behavior Opioid abuse ER Course patient left without being triage. Status: unchanged Disposition: LEFT W/OUT BEING SEEN Condition: Stable JOEL ACUNA M.D. Jan 12, 2017 06:25
--- NOTE | 2017-01-12 06:35 | Emergency Room Report ---
Physical Exam Sp02 EP Interpretation: reviewed, normal General Appearance: well appearing, no apparent distress, alert Head: normocephalic, atraumatic Eyes: bilateral eye EOMI, bilateral eye PERRL ENT: hearing grossly normal, normal pharynx Neck: full range of motion, supple, no meningismus Respiratory: chest non-tender, lungs clear, normal breath sounds Cardiovascular #1: regular rate, rhythm, no murmur Gastrointestinal: normal bowel sounds, non tender, no mass, no organomegaly, no bruit, non-distended Musculoskeletal: back normal, gait/station normal, normal range of motion Psychiatric: mood/affect normal Skin: warm/dry Medical Decision Making Diagnostic Impression: Primary Impression: Sickle cell crisis Additional Impressions: Drug-seeking behavior Opioid abuse ER Course Patient here for sickle cell crisis. Per my last dictation, I discussed the case with the ER doctor at [facility]. Her lab work was unremarkable. She is scheduled to see her primary care DrCheli later on today. I see no need to give her any narcotics. We'll discharge home. Status: unchanged Disposition: HOME, SELF-CARE Condition: Stable Additional Instructions: Some going to do an ER for your pain medication. Go see your Dr. You have an appointment today. Return for any new complaint. JOEL ACUNA M.D. Jan 12, 2017 06:35
[2017-01-12 06:40] VITALS: BP 150/8
== END 2017-01-12 06:50 | disposition home or self-care (01) ==
LOC: EMR 06:36
DX: D57.00 Hb-SS disease with crisis, unspecified (principal); Z76.5 Malingerer [conscious simulation]; F11.10 Opioid abuse, uncomplicated; J44.9 Chronic obstructive pulmonary disease, unspecified; Z88.6 Allergy status to analgesic agent; Z88.8 Allergy status to other drugs, medicaments and biological substances
CPT/HCPCS: 99282

== ENCOUNTER 2017-06-18 20:05 | Emergency (ER) | payer MEDICARE, MEDICAID ==
[~2017-06-18] VITALS: Ht 162.6 cm; Wt 68.0 kg
[2017-06-18 20:10] VITALS: BP 122/81
[2017-06-18 20:15] VITALS: BP 122/81
[2017-06-18 21:47] LABS: HEMATOCRIT 29.1 % (37.0-47.0); HEMOGLOBIN 9.4 G/DL (12.0-16.0); MEAN CORPUSCULAR VOLUME 93 FL (80-99); PLATELET COUNT 170 K/UL (150-450); RED BLOOD COUNT 3.13 M/UL (4.20-5.40); RED CELL DISTRIBUTION WIDTH 18.6 % (11.6-14.8)
[2017-06-18 22:16] LABS: ALANINE AMINOTRANSFERASE 22 U/L (12-78); ALBUMIN 3.7 G/DL (3.4-5.0); ALKALINE PHOSPHATASE 268 U/L (46-116); ANION GAP 10 mmol/L (5-15); ASPARTATE AMINO TRANSFERASE 64 U/L (15-37); BILIRUBIN,TOTAL 1.9 MG/DL (0.2-1.0); BLOOD UREA NITROGEN 35 mg/dL (7-18); CALCIUM 8.2 MG/DL (8.5-10.1); CARBON DIOXIDE 23 MMOL/L (21-32); CHLORIDE 108 MMOL/L (98-107); CREATININE 1.3 MG/DL (0.55-1.30); POTASSIUM 3.9 MMOL/L (3.5-5.1); SODIUM 140 MMOL/L (136-145)
[2017-06-18 22:18] LABS: BILIRUBIN,DIRECT 0.9 MG/DL (0.0-0.3)
--- NOTE | 2017-06-19 21:40 | Emergency Room Report ---
History of Present Illness General Chief Complaint: Pain Source: Patient Present Illness HPI 42-year-old female presents ED complaining of bilateral leg pain. Patient has chronic history of pain. Has history of sickle cell disease. States that she ran out of her pain medications prescribed by her pain management doctor. States pain is a 10 out of 10, throbbing, nonradiating. Denies fevers chills. Denies chest pain or shortness of breath. No other aggravating relieving factors. Denies any other associated symptoms Allergies: Coded Allergies: MORPHINE (Verified Allergy, Mild, HALLUCINATIONS AND HIVES, 04/09/10) HALOPERIDOL (Verified Allergy, Unknown, 11/24/16) Patient History Past Medical History: HTN, asthma, COPD Past Surgical History: none Pertinent Family History: none Social History: Denies: smoking, alcohol use, drug use Last Menstrual Period: NA Now: No Immunizations: UTD Reviewed Nursing Documentation: PMH: Agreed, PSxH: Agreed Nursing Documentation-PMH Hx Hypertension: Yes Hx Asthma: Yes Hx COPD: Yes Hx Cancer: No Hx Gastrointestinal Problems: No Hx Neurological Problems: No Review of Systems All Other Systems: negative except mentioned in HPI Physical Exam Vital Signs Date Time Temp Pulse Resp B/P (MAP) Pulse Ox O2 Delivery O2 Flow Rate FiO2 06/18/17 20:08 97.9 86 20 127/78 99 Room Air Sp02 EP Interpretation: reviewed, normal General Appearance: no apparent distress, alert, GCS 15, non-toxic Head: normocephalic, atraumatic Eyes: bilateral eye normal inspection, bilateral eye PERRL ENT: hearing grossly normal, normal pharynx, no angioedema, normal voice Neck: full range of motion, supple/symm/no masses Respiratory: chest non-tender, lungs clear, normal breath sounds, speaking full sentences Cardiovascular #1: regular rate, rhythm, no edema Cardiovascular #2: 2+ carotid (R), 2+ carotid (L), 2+ radial (R), 2+ radial (L) , 2+ dorsalis pedis (R), 2+ dorsalis pedis (L) Gastrointestinal: normal bowel sounds, non tender, soft, non-distended, no guarding, no rebound Rectal: deferred Genitourinary: normal inspection, no CVA tenderness Musculoskeletal: back normal, gait/station normal, normal range of motion, non- tender Neurologic: alert, oriented x3, responsive, motor strength/tone normal, sensory intact, speech normal Psychiatric: judgement/insight normal, memory normal, mood/affect normal, no suicidal/homicidal ideation Reflexes: 3+ bicep (R), 3+ bicep (L), 3+ tricep (R), 3+ tricep (L), 3+ knee (R) , 3+ knee (L) Skin: normal color, no rash, warm/dry, well hydrated Lymphatic: no adenopathy Medical Decision Making Diagnostic Impression: Primary Impression: Drug-seeking behavior Additional Impression: SICKLE CELL PAIN ER Course Hospital Course 42-year-old F presents ED complaining of bilateral leg pain, h/o sickle cell Differential diagnoses include: [place]/unstable angina, sickle cell crisis, sepsis, UTI, pneumonia Clinical course Patient placed on stretcher. patient is well known to [facility]. has been here multiple times requesting pain meds. her doctors have repeatedly said not to give her pain medications as she comes often to the clinics for IV pain control. Agreed to check lab work and if her labs are abnormal agreed to discuss the option of pain medication with her Patient agrees to lab draw then eloped from the emergency room Labs show normal hemoglobin/hematocrit, repeat count within normal limits Diagnosis - drug seeking behavior, sickle cell pain patient elopes from ED Labs Test 06/18/17 21:25 White Blood Count 8.0 K/UL (4.8-10.8) Red Blood Count 3.13 M/UL (4.20-5.40) Hemoglobin 9.4 G/DL (12.0-16.0) Hematocrit 29.1 % (37.0-47.0) Mean Corpuscular Volume 93 FL (80-99) Mean Corpuscular Hemoglobin 29.9 PG (27.0-31.0) Mean Corpuscular Hemoglobin Concent 32.1 G/DL (32.0-36.0) Red Cell Distribution Width 18.6 % (11.6-14.8) Platelet Count 170 K/UL (150-450) Mean Platelet Volume 9.4 FL (6.5-10.1) Neutrophils (%) (Auto) % (45.0-75.0) Lymphocytes (%) (Auto) % (20.0-45.0) Monocytes (%) (Auto) % (1.0-10.0) Eosinophils (%) (Auto) % (0.0-3.0) Basophils (%) (Auto) % (0.0-2.0) Differential Total Cells Counted 100 Neutrophils % (Manual) 15 % (45-75) Lymphocytes % (Manual) 59 % (20-45) Monocytes % (Manual) 11 % (1-10) Eosinophils % (Manual) 6 % (0-3) Basophils % (Manual) 9 % (0-2) Band Neutrophils 0 % (0-8) Platelet Estimate Adequate Platelet Morphology Normal Hypochromasia 2+ Anisocytosis 2+ Target Cells 1+ Reticulocyte Count 1.4 % (0.0-2.0) Sodium Level 140 MMOL/L (136-145) Potassium Level 3.9 MMOL/L (3.5-5.1) Chloride Level 108 MMOL/L (98-107) Carbon Dioxide Level 23 MMOL/L (21-32) Anion Gap 10 mmol/L (5-15) Blood Urea Nitrogen 35 mg/dL (7-18) Creatinine 1.3 MG/DL (0.55-1.30) Estimat Glomerular Filtration Rate 54.9 mL/min (>60) Glucose Level 80 MG/DL (74-106) Calcium Level 8.2 MG/DL (8.5-10.1) Total Bilirubin 1.9 MG/DL (0.2-1.0) Direct Bilirubin 0.9 MG/DL (0.0-0.3) Aspartate Amino Transf (AST/SGOT) 64 U/L (15-37) Alanine Aminotransferase (ALT/SGPT) 22 U/L (12-78) Alkaline Phosphatase 268 U/L (46-116) Lactate Dehydrogenase 594 U/L (81-234) Total Protein 9.2 G/DL (6.4-8.2) Albumin 3.7 G/DL (3.4-5.0) Globulin 5.5 g/dL Last Vital Signs Date Time Temp Pulse Resp B/P (MAP) Pulse Ox O2 Delivery O2 Flow Rate FiO2 06/18/17 20:15 97.9 69 20 122/81 99 Room Air Status: unchanged Disposition: ELOPED Condition: Stable Referrals: NON PHYSICIAN (PCP) PEDRO OWENS M.D. Jun 19, 2017 21:40
== END 2017-06-19 04:13 | disposition home or self-care (01) ==
LOC: EMR 22:00
DX: Z76.5 Malingerer [conscious simulation] (principal); D57.00 Hb-SS disease with crisis, unspecified; I10 Essential (primary) hypertension; J44.9 Chronic obstructive pulmonary disease, unspecified; Z88.5 Allergy status to narcotic agent
CPT/HCPCS: 36415; 80053; 82248; 83615; 85007; 85025; 85044; 99283

== ENCOUNTER → 2018-08-09 | Emergency (ER) | payer MEDICARE, MEDICAID ==
[~2018-08-09] VITALS: Ht 162.6 cm; Wt 68.0 kg
--- NOTE | 2018-08-09 23:03 | NUR ---
ED Nurse Note: PEr ERMD order, labs and ivf cancelled.
[2018-08-09 23:04] VITALS: BP 95/67
[2018-08-09 23:09] VITALS: BP 108/75
--- NOTE | 2018-08-09 23:14 | NUR ---
ED Nurse Note: pt is cleared to be d/c per ERMD order, pt discharge/aftercare instruction provided, pt advised to follow up with pcp in regards to chronic pain management and continuation of care, pt verbalized understanding and agrees with plan, pt education done via discussion and hand out, vss, ambulatroy w/ steady gait, all belongings left w/ pt.
--- NOTE | 2018-08-10 22:31 | Emergency Room Report ---
History of Present Illness General Chief Complaint: Pain Source: Patient Present Illness HPI 43-year-old female presents ED for evaluation. Patient states she's having a sickle cell crisis. Notes generalized body pain, sharp, 10 out of 10, nonradiating. States she's been having this pain for several weeks now. States she's been unable to follow-up with her process treater. She does not have medication at home. Denies chest pain or shortness of breath. No other aggravating relieving factors. Denies any other associated symptoms Allergies: Coded Allergies: MORPHINE (Verified Allergy, Mild, HALLUCINATIONS AND HIVES, 04/09/10) HALOPERIDOL (Verified Allergy, Unknown, 11/24/16) Patient History Past Medical History: HTN, asthma, COPD, other - sickle cell Past Surgical History: none Pertinent Family History: none Social History: Denies: smoking, alcohol use, drug use Last Menstrual Period: 07/29/2018 Now: No Immunizations: UTD Reviewed Nursing Documentation: PMH: Agreed; PSxH: Agreed Nursing Documentation-PMH Past Medical History: No History, Except For Hx Hypertension: Yes Hx Asthma: Yes Hx COPD: Yes Hx Cancer: No Hx Gastrointestinal Problems: No Hx Neurological Problems: No Review of Systems All Other Systems: negative except mentioned in HPI Physical Exam Vital Signs Date Time Temp Pulse Resp B/P (MAP) Pulse Ox O2 Delivery O2 Flow Rate FiO2 08/09/18 22:34 97.9 64 16 170/89 96 Room Air Sp02 EP Interpretation: reviewed, normal General Appearance: no apparent distress, alert, GCS 15, non-toxic Head: normocephalic, atraumatic Eyes: bilateral eye normal inspection, bilateral eye PERRL ENT: hearing grossly normal, normal pharynx, no angioedema, normal voice Neck: full range of motion, supple/symm/no masses Respiratory: chest non-tender, lungs clear, normal breath sounds, speaking full sentences Cardiovascular #1: regular rate, rhythm, no edema Cardiovascular #2: 2+ carotid (R), 2+ carotid (L), 2+ radial (R), 2+ radial (L) , 2+ dorsalis pedis (R), 2+ dorsalis pedis (L) Gastrointestinal: normal bowel sounds, non tender, soft, non-distended, no guarding, no rebound Rectal: deferred Genitourinary: normal inspection, no CVA tenderness Musculoskeletal: back normal, gait/station normal, normal range of motion, non- tender Neurologic: alert, oriented x3, responsive, motor strength/tone normal, sensory intact, speech normal Psychiatric: judgement/insight normal, memory normal, mood/affect normal, no suicidal/homicidal ideation Reflexes: 3+ bicep (R), 3+ bicep (L), 3+ tricep (R), 3+ tricep (L), 3+ knee (R) , 3+ knee (L) Skin: normal color, no rash, warm/dry, well hydrated Lymphatic: no adenopathy Medical Decision Making Diagnostic Impression: Primary Impression: H/O sickle cell anemia Additional Impression: Opioid abuse ER Course Hospital Course 43-year-old F presents ED complaining of generalized body pain, h/o sickle cell Differential diagnoses include: [place]/unstable angina, sickle cell crisis, sepsis, UTI, pneumonia Clinical course Patient placed on stretcher. on procurement clerk. Patient is well-known to [facility] has been her multiple times for similar presentation. After initial history and physical, I offered to check labs and provide IV fluids. I explained to patient that if her labs are abnormal we can discuss the option of pain meds I contacted [facility] as patient has [facility] band from today on her wrist. I spoke to the ER doctor who stated that patient was in fact seen here today. Had labs which were unremarkablenormal hemoglobin/hematocrit, unremarkable chemistry. They contacted Dr. Lara reported that patient was seen at his office earlier today and was given high dose of pain meds. Patient was subsequently discharged from [facility] I contacted Dr. Lara; he explained that patient was in fact seen earlier in his office today. Was then seen at [facility]. He reported that patient was observed leaving his office and going straight to [facility]. He agrees that patient should not receive any additional pain meds here I explained to patient that I would not be providing any additional pain meds here and that her lab workup was unremarkable at [facility] today. At this point patient refuses any further workup and is asking to be discharged Diagnosis - h/o sickle cell aneia, opioid abuse Stable and discharged to home. Followup with PMD. Return to ED if symptoms recur or worsen Last Vital Signs Date Time Temp Pulse Resp B/P (MAP) Pulse Ox O2 Delivery O2 Flow Rate FiO2 08/09/18 23:09 98.2 88 18 108/75 100 Room Air Status: improved Disposition: HOME, SELF-CARE Condition: Stable Referrals: GALO LARA Patient Instructions: Sickle Cell Anemia, Adult, [id number] Kobi Anderson MD Aug 10, 2018 22:31
== END | disposition home or self-care (01) ==
LOC: EMR 22:17
DX: D57.00 Hb-SS disease with crisis, unspecified (principal); I10 Essential (primary) hypertension; J44.9 Chronic obstructive pulmonary disease, unspecified; Z88.5 Allergy status to narcotic agent; F11.10 Opioid abuse, uncomplicated
CPT/HCPCS: 99282

== ENCOUNTER 2020-05-20 20:40 | Emergency (ER) | payer MEDICARE, MEDICAID ==
[~2020-05-20] VITALS: Ht 162.6 cm; Wt 83.5 kg
[2020-05-20 20:50] VITALS: BP 144/82
--- NOTE | 2020-05-20 20:50 | NUR ---
ED Nurse Note: pt walked into ED from home c/o sickle cell crisis with severe generalized pain 03/29. Pt reports she was DC from [facility] in the AM was given IV fluids and pain medicine. Pt denies n/v/d fever, chills. Pt is AAOx4, breathing even and unlaored. Vital signs stable.
--- NOTE | 2020-05-20 21:15 | Emergency Room Report ---
History of Present Illness General Chief Complaint: Pain Source: Patient Present Illness HPI Disclaimer: Please note that this report is being documented using DRAGON technology. This can lead to erroneous entry secondary to incorrect interpretation by the dictating instrument. HPI: 45-year-old female history of sickle cell disease presents complaining of body wide pain for 4 days. She reports she is having a sickle cell crisis. Reporting 10 out of 10 diffuse aching pain in all extremities as well as her chest. Patient states she was just discharged from [facility]. She arrives with an IV in the right chest. She states that did not treat her pain adequately. She also states she was diagnosed with pneumonia there but not given antibiotics or discharged with antibiotics. PMH: Sickle cell disease PSH: Reviewed Allergies: Haldol, morphine Social Hx: Reviewed Allergies: Coded Allergies: MORPHINE (Verified Allergy, Mild, HALLUCINATIONS AND HIVES, 04/09/10) HALOPERIDOL (Verified Allergy, Unknown, 11/24/16) COVID-19 Screening Contact w/high risk pt: No Experienced COVID-19 symptoms?: No COVID-19 Testing performed [employer]IGH [employer] ADMISSIONS REPRESENTATIVE: No Patient History Last Menstrual Period: 05/09/20 Now: No : 3 Para: 3 Nursing Documentation-PMH Past Medical History: No History, Except For Hx Hypertension: Yes Hx Asthma: Yes Hx COPD: Yes Hx Cancer: No Hx Gastrointestinal Problems: No Hx Neurological Problems: No Review of Systems All Other Systems: negative except mentioned in HPI Physical Exam Vital Signs Date Time Temp Pulse Resp B/P (MAP) Pulse Ox O2 Delivery O2 Flow Rate FiO2 05/20/20 20:47 98.1 93 21 158/84 (108) 94 Room Air General: Awake and alert, appears uncomfortable HEENT: NC/AT. EOMI. Chest Wall: IV present in right upper chest. Cardiovascular: RRR. S1 and S2 normal. No murmur appreciated Resp: Normal work of breathing. No cough, wheezing or crackles appreciated Abdomen: Abdomen is soft, nondistended. Nontender Skin: Intact. No abrasions, laceration or rash over the exposed skin MSK: Normal tone and bulk. Moving all extremities. No obvious deformity. Neuro: Awake and alert. Mentating appropriately. Medical Decision Making Diagnostic Impression: Primary Impression: SICKLE CELL PAIN Additional Impression: Bronchitis ER Course 44-year-old female history of sickle cell disease and opiate dependence presents for evaluation of body wide pain. Patient reports being diagnosed with pneumonia earlier today at [facility]. She originally stated she was discharged from the ER without being given any medications or interventions. Contacted [facility] who stated that she left AMA after an inpatient stay from 05/12 to today. She was treated pneumonia while an inpatient. Labs today were obtained here showing hemoglobin greater than 8.0, normal reticulocyte count, unremarkable chemistry. No infiltrates on chest x-ray. Persistent cough from treated pneumonia and will continue antibiotics. The patient was found sleeping comfortably after receiving IV fluids. She will be discharged to follow-up with her psychiatric mental health nurse. Laboratory Tests Test 05/20/20 21:15 White Blood Count 16.5 K/UL (4.8-10.8) H Red Blood Count 2.73 M/UL (4.20-5.40) L Hemoglobin 8.6 G/DL (12.0-16.0) L Hematocrit 26.4 % (37.0-47.0) L Mean Corpuscular Volume 97 FL (80-99) Mean Corpuscular Hemoglobin 31.5 PG (27.0-31.0) H Mean Corpuscular Hemoglobin Concent 32.5 G/DL (32.0-36.0) Red Cell Distribution Width 18.9 % (11.6-14.8) H Platelet Count 241 K/UL (150-450) Mean Platelet Volume 10.7 FL (6.5-10.1) H Neutrophils (%) (Auto) 52.4 % (45.0-75.0) Lymphocytes (%) (Auto) 18.9 % (20.0-45.0) L Monocytes (%) (Auto) 11.7 % (1.0-10.0) H Eosinophils (%) (Auto) 11.3 % (0.0-3.0) H Basophils (%) (Auto) 5.7 % (0.0-2.0) H Reticulocyte Count 0.6 % (0.5-2.0) Sodium Level 141 MMOL/L (136-145) Potassium Level 4.8 MMOL/L (3.5-5.1) Chloride Level 107 MMOL/L (98-107) Carbon Dioxide Level 27 MMOL/L (21-32) Blood Urea Nitrogen 22 mg/dL (7-18) H Creatinine 1.3 MG/DL (0.55-1.30) Estimated Glomerular Filtration Rate 54.2 mL/min (>60) Glucose Level 100 MG/DL (74-106) Calcium Level 9.8 MG/DL (8.5-10.1) Total Bilirubin 1.3 MG/DL (0.2-1.0) H Direct Bilirubin 0.7 MG/DL (0.0-0.3) H Aspartate Amino Transferase (AST) 47 U/L (15-37) H Alanine Aminotransferase (ALT) 18 U/L (12-78) Alkaline Phosphatase 187 U/L (46-116) H Troponin I 0.011 ng/mL (0.000-0.056) Total Protein 8.9 G/DL (6.4-8.2) H Albumin 3.5 G/DL (3.4-5.0) Globulin 5.4 g/dL Albumin/Globulin Ratio 0.6 (1.0-2.7) L EKG Diagnostic Results Troponin ordered: Yes When was troponin ordered?: May 20, 2020 EKG Time: 23:02 Rate: normal Rhythm: NSR ST Segments: no acute changes Other Impression Sinus rhythm, normal axis, normal intervals, no ST segment changes. Rhythm Strip Diag. Results Rhythm Strip Time: 23:02 EP Interpretation: yes Rate: 90 Rhythm: NSR, no PVC's, no ectopy Chest X-Ray Diagnostic Results Chest X-Ray Diagnostic Results : Chest X-Ray Ordered: Yes # of Views/Limited/Complete: 1 View Indication: Chest Pain EP Interpretation: Yes Interpretation: no consolidation, no effusion, no pneumothorax, no acute cardiopulmonary disease Impression: No acute disease Electronically Signed by: Electronically signed by Dr. Prieto Gonzalez MD Last Vital Signs Date Time Temp Pulse Resp B/P (MAP) Pulse Ox O2 Delivery O2 Flow Rate FiO2 05/20/20 20:47 98.1 93 21 158/84 (108) 94 Room Air Disposition: HOME, SELF-CARE Condition: Stable Scripts Azithromycin* (ZITHROMAX*) 250 Mg Tablet 250 MG ORAL DAILY, #6 TAB 0 Refills Take two tables once daily for 1 day, then one tablet once daily for 4 days. Prov: Prieto Gonzalez MD 05/20/20 Prieto Gonzalez MD May 20, 2020 21:15
[2020-05-20 21:28] LABS: BASOPHILS % (AUTO) 5.7 % (0.0-2.0); EOSINOPHILS % (AUTO) 11.3 % (0.0-3.0); HEMATOCRIT 26.4 % (37.0-47.0); HEMOGLOBIN 8.6 G/DL (12.0-16.0); LYMPHOCYTES % (AUTO) 18.9 % (20.0-45.0); MEAN CORPUSCULAR VOLUME 97 FL (80-99); MONOCYTES % (AUTO) 11.7 % (1.0-10.0); NEUTROPHILS % (AUTO) 52.4 % (45.0-75.0); PLATELET COUNT 241 K/UL (150-450); RED BLOOD COUNT 2.73 M/UL (4.20-5.40); RED CELL DISTRIBUTION WIDTH 18.9 % (11.6-14.8); WHITE BLOOD COUNT 16.5 K/UL (4.8-10.8)
--- NOTE | 2020-05-20 21:30 | NUR ---
ED Nurse Note: technician at bedside
[2020-05-20 21:59] LABS: ALANINE AMINOTRANSFERASE 18 U/L (12-78); ALBUMIN 3.5 G/DL (3.4-5.0); ALBUMIN/GLOBULIN RATIO 0.6 (1.0-2.7); ALKALINE PHOSPHATASE 187 U/L (46-116); ASPARTATE AMINO TRANSFERASE 47 U/L (15-37); BILIRUBIN,TOTAL 1.3 MG/DL (0.2-1.0); BLOOD UREA NITROGEN 22 mg/dL (7-18); CALCIUM 9.8 MG/DL (8.5-10.1); CARBON DIOXIDE 27 MMOL/L (21-32); CHLORIDE 107 MMOL/L (98-107); CREATININE 1.3 MG/DL (0.55-1.30); POTASSIUM 4.8 MMOL/L (3.5-5.1); SODIUM 141 MMOL/L (136-145)
[2020-05-20 22:04] LABS: BILIRUBIN,DIRECT 0.7 MG/DL (0.0-0.3)
[2020-05-20] MEDS ORDERED: HYDROmorphone 1mg/ml Carpuject IVP ONE (22:45)
[2020-05-20] MEDS ORDERED: ZITHROMAX250 MG ORAL (23:07)
[2020-05-21 00:10] VITALS: BP 142/78
--- NOTE | 2020-05-21 00:10 | NUR ---
ER DISCHARGE NOTE: Patient is cleared to be discharged per ERMD, pt is aox4, on room air, with stable vital signs. pt was given dc and prescription instructions, pt was able to verbalize understanding, pt id band and iv site removed without complications. pt is able to ambulate with steady gait. pt took all belongings.
--- NOTE | 2020-05-21 19:05 | Diagnostic Imaging Report ---
Indication: Cough Technique: One view of the chest Comparison: 11/24/2016 Findings: The heart size is upper limits normal. Lungs and pleural spaces are clear. Previously demonstrated port catheter has been removed Impression: No acute process
--- NOTE | 2020-05-23 12:58 | Cardiology Report ---
APPROVED REPORT EKG Measurement Heart [id number] <Conclusion> Normal sinus rhythm Normal ECG
== END 2020-05-21 00:10 | disposition home or self-care (01) ==
LOC: EMR 21:26
DX: D57.80 Other sickle-cell disorders without crisis (principal); J40 Bronchitis, not specified as acute or chronic; F11.20 Opioid dependence, uncomplicated; I10 Essential (primary) hypertension; J44.9 Chronic obstructive pulmonary disease, unspecified; Z88.5 Allergy status to narcotic agent
CPT/HCPCS: 36415; 71045; 80053; 82248; 84484; 85025; 85044; 93005; 96361; 96374; 99284; J1170; J7030

== ENCOUNTER 2020-05-21 01:15 | Emergency (ER) | payer MEDICARE, MEDICAID ==
[~2020-05-21] VITALS: Ht 162.6 cm; Wt 84.8 kg
[2020-05-21 01:30] VITALS: BP 140/90
--- NOTE | 2020-05-21 01:30 | NUR ---
ED Nurse Note: Patient walked into ED for c/o 03/29 generalized body pain due to sickle cell crisis. Patient was DC from [facility] yesterday for same complaint. She is aaox4, breathing is normal and unlabored. Ambulatory with steady gait. Patient asking for pain medication.
--- NOTE | 2020-05-21 01:37 | Emergency Room Report ---
History of Present Illness General Chief Complaint: Pain Source: Patient Present Illness HPI Patient is a 45-year-old female presents for increased generalized body pain. Patient had recent ER visit earlier in the day. Had laboratory testing which showed adequate hemoglobin. Patient returned after discharge. Patient had been followed by hematology and previously been seeing Dr. Christine. Allergies: Coded Allergies: MORPHINE (Verified Allergy, Mild, HALLUCINATIONS AND HIVES, 04/09/10) HALOPERIDOL (Verified Allergy, Unknown, 11/24/16) COVID-19 Screening Contact w/high risk pt: No Experienced COVID-19 symptoms?: No COVID-19 Testing performed MANAGER PURCHASING: No Patient History Last Menstrual Period: 05/09/2020 Now: No Nursing Documentation-PMH Hx Hypertension: Yes Hx Asthma: Yes Hx COPD: Yes Hx Cancer: No Hx Gastrointestinal Problems: No Hx Neurological Problems: No Physical Exam Vital Signs Date Time Temp Pulse Resp B/P (MAP) Pulse Ox O2 Delivery O2 Flow Rate FiO2 05/21/20 01:18 97.3 96 18 140/90 (107) 92 Room Air Sp02 EP Interpretation: reviewed, normal General Appearance: normal inspection, well appearing, no apparent distress, alert, GCS 15, obese Head: atraumatic ENT: normal ENT inspection, hearing grossly normal, normal voice Neck: normal inspection, full range of motion, supple, no bony tend Respiratory: normal inspection, lungs clear, normal breath sounds, no respiratory distress, no retraction, no wheezing Cardiovascular #1: regular rate, rhythm, no edema Gastrointestinal: normal inspection, normal bowel sounds, non tender, soft, no guarding, no hernia Genitourinary: no CVA tenderness Musculoskeletal: normal inspection, back normal, normal range of motion Neurologic: alert, motor strength/tone normal, coil tier III-XII nml as tested, responsive, speech normal, normal inspection Psychiatric: normal inspection, judgement/insight normal, mood/affect normal Medical Decision Making Diagnostic Impression: Primary Impression: chronic pain ER Course Presented for increased generalized body pain. Differential diagnosis include was not limited to pneumonia, chronic pain exacerbation, sickle cell crisis among others. Patient had recently been seen in the emergency department had recent negative chest x-ray as well as unremarkable laboratory studies. Patient does not appear to have any indication for repeat lab work due to recency of prior visit. Patient was given [place] for pain. Patient was advised to follow- up with her oncologist for further pain medication prescriptions. She is advised to return if worse. This medical record is generated with [employer] tafe lecturer software. There may be some tafe lecturer discrepancies related to use of this software Last Vital Signs Date Time Temp Pulse Resp B/P (MAP) Pulse Ox O2 Delivery O2 Flow Rate FiO2 05/21/20 01:18 97.3 96 18 140/90 (107) 92 Room Air Status: improved Disposition: HOME, SELF-CARE Condition: Stable Referrals: NOT CHOSEN IPA/,REFERRING (PCP) Suresh Sosa MD May 21, 2020 01:37
[2020-05-21] MEDS ORDERED: HYDROcodone/Acetamin 10/325 tab ORAL ONE (01:45)
[2020-05-21 03:30] VITALS: BP 135/88
--- NOTE | 2020-05-21 03:30 | NUR ---
ED Nurse Note: Patient DC at this time. See down time forms.
== END 2020-05-21 03:30 | disposition home or self-care (01) ==
LOC: EMR 01:28
DX: G89.29 Other chronic pain (principal); I10 Essential (primary) hypertension; J44.9 Chronic obstructive pulmonary disease, unspecified; Z88.5 Allergy status to narcotic agent
CPT/HCPCS: 99282; U0002